=== PATIENT | female | born 1990 | race Caucasian/White ===

== ENCOUNTER → 2020-11-17 | Outpatient (CLI) | payer OTHER ==
[2020-11-17 15:41] LABS: BASO % 0.5 % (0.0-1.0); EOS # 0.2 10^3/uL (0.0-0.5); EOS % 1.9 % (0.0-3.0); HEMATOCRIT 43.8 % (36.0-47.0); HEMOGLOBIN 13.6 g/dl (12.0-15.5); LYMPH # 2.8 10^3/uL (1.5-5.0); LYMPH % 35.9 % (24.0-44.0); MEAN CORPUSCULAR HEMOGLOBIN 27.3 pg (27.0-33.0); MEAN CORPUSCULAR HGB CONC 31.1 g/dl (32.0-36.5); MONO # 0.3 10^3/uL (0.0-0.8); MONO % 4.1 % (2.0-8.0); NEUTROPHILS # 4.5 10^3/uL (1.5-8.5); NEUTROPHILS % 57.3 % (36.0-66.0); PLATELET COUNT, AUTOMATED 294 10^3/uL (150-450); RED BLOOD COUNT 4.98 10^6/uL (4.00-5.40); WHITE BLOOD COUNT 7.9 10^3/uL (4.0-10.0)
[2020-11-17 15:51] LABS: APPEARANCE, URINE CLOUDY (CLEAR); BACTERIA, URINE AUTO 2+ (NEGATIVE); BILIRUBIN, URINE AUTO NEGATIVE (NEGATIVE); BLOOD, URINE BLOOD NEGATIVE (NEGATIVE); COLOR, URINE YELLOW (YELLOW); GLUCOSE, URINE (UA) AUTO NEGATIVE (NEGATIVE); KETONE, URINE AUTO NEGATIVE (NEGATIVE); LEUKOCYTE ESTERASE, URINE AUTO 1+ (NEGATIVE); MUCUS, URINE MODERATE (NEGATIVE); NITRITE, URINE AUTO NEGATIVE (NEGATIVE); PROTEIN, URINE AUTO NEGATIVE (NEGATIVE); RBC, URINE AUTO 3 /HPF (0-3); SQUAMOUS EPITHELIAL CELL UR AU 7 /HPF (0-6); UROBILINOGEN, URINE AUTO 0.2 mg/dL (0.0-2.0); WBC, URINE AUTO 31 /HPF (0-3)
[2020-11-17 16:15] LABS: ALBUMIN 3.8 GM/DL (3.2-5.2); ALT/SGPT 29 U/L (12-78); BILIRUBIN,TOTAL 0.3 MG/DL (0.2-1.0); BLOOD UREA NITROGEN 15 MG/DL (7-18); CALCIUM LEVEL 9.2 MG/DL (8.5-10.1); CARBON DIOXIDE LEVEL 29 MEQ/L (21-32); CHLORIDE LEVEL 105 MEQ/L (98-107); CREATININE FOR GFR 0.79 MG/DL (0.55-1.30); GLOMERULAR FILTRATION RATE > 60.0 (>60); GLUCOSE, FASTING 71 MG/DL (70-100); POTASSIUM SERUM 4.3 MEQ/L (3.5-5.1); SODIUM LEVEL 138 MEQ/L (136-145)
[2020-11-17 16:33] LABS: HEPATITIS B SURFACE ANTIGEN NEGATIVE (NEGATIVE)
[2020-11-17 17:01] LABS: HEPATITIS B CORE ANTIBODY IGM NEGATIVE (NEGATIVE)
[2020-11-17 17:03] LABS: HEPATITIS A ANTIBODY IGM NEGATIVE (NEGATIVE)
[2020-11-17 17:29] LABS: HEPATITIS C VIRUS ABY INDEX > 11.0 INDEX (<0.8)
== END ==
LOC: M LAB 13:24
PROVIDERS: ATTEND Physician Assistant Medical
DX: Z02.2 Encounter for examination for admission to residential institution (principal)

== ENCOUNTER → 2021-01-13 | Outpatient (CLI) | payer OTHER ==
[2021-01-13 12:18] LABS: BASO % 0.5 % (0.0-1.0); EOS # 0.1 10^3/uL (0.0-0.5); EOS % 3.3 % (0.0-3.0); HEMATOCRIT 38.2 % (36.0-47.0); HEMOGLOBIN 12.2 g/dl (12.0-15.5); LYMPH # 2.1 10^3/uL (1.5-5.0); LYMPH % 53.4 % (24.0-44.0); MEAN CORPUSCULAR HGB CONC 31.9 g/dl (32.0-36.5); MEAN CORPUSCULAR VOLUME 87.8 fl (80.0-96.0); MONO # 0.2 10^3/uL (0.0-0.8); MONO % 5.1 % (2.0-8.0); NEUTROPHILS # 1.5 10^3/uL (1.5-8.5); NEUTROPHILS % 37.7 % (36.0-66.0); PLATELET COUNT, AUTOMATED 225 10^3/uL (150-450); RED BLOOD COUNT 4.35 10^6/uL (4.00-5.40)
[2021-01-13 12:41] LABS: ERYTHROCYTE SEDIMENTATION RATE 3 mm/hr (0-20)
[2021-01-13 12:46] LABS: BLOOD UREA NITROGEN 15 MG/DL (7-18); CALCIUM LEVEL 9.1 MG/DL (8.5-10.1); CARBON DIOXIDE LEVEL 30 MEQ/L (21-32); CHLORIDE LEVEL 109 MEQ/L (98-107); CREATININE FOR GFR 0.56 MG/DL (0.55-1.30); GLOMERULAR FILTRATION RATE > 60.0 (>60); GLUCOSE, FASTING 84 MG/DL (70-100); POTASSIUM SERUM 4.2 MEQ/L (3.5-5.1); SODIUM LEVEL 142 MEQ/L (136-145)
[2021-01-14 18:07] LABS: EBV VIRAL CAPSID AG IgG >600.0 U/mL (0.0-17.9); EBV VIRAL CAPSID AG IgM <36.0 U/mL (0.0-35.9)
== END ==
LOC: M LAB 10:49
PROVIDERS: ATTEND Physician Assistant
DX: M86.172 Other acute osteomyelitis, left ankle and foot (principal)

== ENCOUNTER 2021-02-10 12:26 | Emergency (ER) | payer OTHER ==
[~2021-02-10] VITALS: Ht 165.1 cm; Wt 66.4 kg
--- OUTSIDE RECORDS SUMMARY | 2021-02-10 12:34 | CCD | Continuity of Care Document ---
Author Author Misbah GARCIA PA-C Organization Unknown Address [address] [place] [address] Phone [phone] Problems Description No Information Available Social History Type Date Description Comments Sex Unknown Allergies and adverse reactions Description No Information Available Medications Description No Information Available Immunizations Description No Information Available Vital Signs Date Vital Result Comment 01/07/2021 1:19pm Height 65 inches 5'5" Weight 145.00 lb BMI (Body Mass Index) 24.1 kg/m2 Results Description No Information Available Procedures Date Code Description Status 01/07/2021 80319 X-Ray Foot Complete Completed Medical Devices Description No Information Available Encounters Description No Information Available Assessments Date Code Description Provider 01/07/2021 M86.471 Chronic osteomyeliti s with draining sinus, right ankle and foot Jane Garcia PA-C Plan of Treatment No Information Available Functional Status Description No Information Available Mental Status Description No Information Available Referrals Description No Information Available
--- OUTSIDE RECORDS SUMMARY | 2021-02-10 12:34 | CCD | Continuity of Care Document ---
Author Author Misbah HOWELL Organization Unknown Address [address] [place] [address] [address] [place] [address] Phone [phone] Care Team Providers Care Customer Service Dispatcher Name Role Phone JAN LEAL AUTM Problems Active Problems Provider Date Anxiety state NATASHA Ba Onset: 02/02/2021 Insomnia NATASHA Ba Onset: 02/02/2021 Nicotine dependence NATASHA Ba Onset: 02/02/2021 Drug dependence NATASHA Ba Onset: 02/02/2021 Social History Type Date Description Comments Sex Unknown ETOH Use history of alcohol abuse Recreational Drug Use history of use of hydromop jevon and cocaine Tobacco Use Start: Unknown Heavy tobacco smoker (more than 10 cigarettes/day) Allergies and adverse reactions Description No Known Drug Allergies Medications Active Medications SIG Qnty Indications Ordering Provide r Date Nicotine Polacrilex 4mg Lozenges take one lozenge by mouth up to 14 times daily as needed 72units Peterson Schneider [facility] 02/03/2021 Requip 1mg Tablets 1 tab by mouth every evening 1 hour prior to sleep 30tabs Peterson Schneider M[facility]D. [facility] 02/03/2021 Tizanidine HCL 6mg Capsules 1 tab by mouth three times a day as needed 90caps Peterson Schneider [facility] 02/03/2021 Nicotine Transdermal System Step 1 21mg/24HR Patches 24HR Apply One Patch To Skin topically Once Daily Jan Leal Prozac 40mg Capsules take one capsule by mouth daily Unknown History Medications Tizanidine HCL 4mg Tablets one tablet by mouth three times daily 90tabs Peterson Schneider [facility] 02/03/2021 - 02/03/2021 Vital Signs Date Vital Result Comment 02/03/2021 12:10pm Height 65 inches 5'5" Weight 146.25 lb BMI (Body Mass Index) 24.3 kg/m2 Body Temperature 98.2 F BP Systolic 107 mmHg BP Diastolic 68 mmHg Heart Rate 76 /min O2 % BldC Oximetry 95 % Respiratory Rate 16 /min Last Menstrual Period [id number] 12/28/2020 2:32pm Height 65 inches 5'5" Weight 145.12 lb BMI (Body Mass Index) 24.1 kg/m2 Body Temperature 97.7 F BP Systolic 108 mmHg BP Diastolic 68 mmHg Heart Rate 82 /min O2 % BldC Oximetry 98 % Respiratory Rate 16 /min Results Test Acquired Date Facility Test Result H/L Range Note CBC With Differential 11/17/[address] [id number] [phone] White Blood Count 7.9 10 Normal 4.0-10.0 Red Blood Count 4.98 10 Normal 4.00-5.40 Hemoglobin 13.6 g/dL Normal 12.0-15.5 Hematocrit 43.8 % Normal 36.0-47.0 Mean Corpuscular Volume 88.0 fl Normal 80.0-96.0 Mean Corpuscular Hemoglobin 27.3 pg Normal 27.0-33.0 Mean Corpuscular HGB Conc 31.1 g/dL Low 32.0-36.5 Red Cell Distribution Width 16.8 % High 11.5-14.5 Platelet Count, Automated 294 10 Normal 150-450 Neutrophils % 57.3 % Normal 36.0-66.0 Lymph % 35.9 % Normal 24.0-44.0 [place] % 4.1 % Normal 2.0-8.0 Eos % 1.9 % Normal 0.0-3.0 Baso % 0.5 % Normal 0.0-1.0 Immature Granulocyte % 0.3 % Normal 0-3.0 Nucleated Red Blood Cell % 0.0 % Normal 0-0 Neutrophils # 4.5 10 Normal 1.5-8.5 Lymph # 2.8 10 Normal 1.5-5.0 [place] # 0.3 10 Normal 0.0-0.8 Eos # 0.2 10 Normal 0.0-0.5 Baso # 0.0 10 Normal 0.0-0.2 Ua Routine 11/17/[address] [id number] [phone] Appearance, Urine CLOUDY High Clear Color, Urine YELLOW Normal Yellow PH,Urine 5.0 units Normal 5.0-9.0 Specific [place] Urine Auto 1.020 Normal 1.002-1.035 Protein, Urine Auto NEGATIVE mg/dL Normal Negative Glucose, Urine (Ua) Auto NEGATIVE mg/dL Normal Negative Ketone, Urine Auto NEGATIVE mg/dL Normal Negative Urobilinogen, Urine Auto 0.2 mg/dL Normal 0.0-2.0 Bilirubin, Urine Auto NEGATIVE Normal Negative Nitrite, Urine Auto NEGATIVE Normal Negative Leukocyte Esterase, Urine Auto 1+ High Negative Blood, Urine Blood NEGATIVE Normal Negative WBC, Urine Auto 31 /HPF High 0-3 RBC, Urine Auto 3 /HPF Normal 0-3 Bacteria, Urine Auto 2+ High Negative Squamous Epithelial Cell Ur AU 7 /HPF Normal 0-6 Mucus, Urine MODERATE Normal Negative Hyaline Cast, Urine Auto 0 /LPF Normal 0-1 Comprehensive Metabolic Profil 11/17/[address] [id number] [phone] Glucose, Fasting 71 mg/dL Normal 70-100 Blood Urea Nitrogen 15 mg/dL Normal 7-18 Creatinine For GFR 0.79 mg/dL Normal 0.55-1.30 Glomerular Filtration Rate > 60.0 Normal >60 1 Sodium Level 138 mEq/L Normal 136-145 Potassium Serum 4.3 mEq/L Normal 3.5-5.1 Chloride Level 105 mEq/L Normal 98-107 Carbon Dioxide Level 29 mEq/L Normal 21-32 Anion Gap 4 mEq/L Low 8-16 Calcium Level 9.2 mg/dL Normal 8.5-10.1 Ast/Sgot 25 U/L Normal 7-37 Alt/SGPT 29 U/L Normal 12-78 Alkaline Phosphatase 46 U/L Normal 45-117 Bilirubin,Total 0.3 mg/dL Normal 0.2-1.0 Total Protein 8.0 GM/DL Normal 6.4-8.2 Albumin 3.8 GM/DL Normal 3.2-5.2 Albumin/Globulin Ratio 0.9 Low 1.2-2.2 Hepatitis Profile 11/17/2020 [facility] [address] [place] [address] [phone] Hepatitis C Virus Rosy Index > 11.0 INDEX High <0 .8 2 Hepatitis B Surface Antigen NEGATIVE Normal Negative Hepatitis B Core Antibody Igm NEGATIVE Normal Negative Hepatitis A Antibody Igm NEGATIVE Normal Negative Laboratory test finding 11/17/2020 [facility] [address] [place] [address] [phone] HCV Rna Tosin Qualitative Negative Normal Negative 3 1 Units are mL/min/1.73 m2 Chronic Kidney Disease Staging per NKF: Stage I & II GFR >=60 Normal to Mildly Decreased Stage III GFR 30-59 Moderately Decreased Stage IV GFR 15-29 Severely Decreased Stage V GFR <15 Very Little GFR Left ESRD GFR <15 on DIRECTOR BUSINESS TRAVEL 2 This screening test for Hepa titis C Virus was above the 1.0 cutoff index value and will be sent to reference lab Laboratory [facility], [address] [place] [address]. [place], [place]. [address] for Hep C RNA TOSIN testing to confirm or exclude active Hepatitis C Virus infection. Screening test Positive samples with high index values (>11.0) usually (95%) confirm Positive, but <5 of every 100 samples with this result might be a false positive and Hep C RNA TOSIN testing will aid in patient management. 3 Negative: HCV RNA Not Detect ed Performed at: [address] [id number] Sales Management Intern: Maureen San MD, Phone: [phone] Procedures Date Code Description Status 02/03/2021 52869 Smoking Ceassation 3-10 Min Comp leted 02/03/2021 32545 Office/Outpatient Established Mo d MDM 30-39 Min Completed 12/28/2020 47803 Office/Outpatient Established SF MDM 10-19 Min Completed 12/07/2020 68615 Office/Outpatient Established Lo w MDM 20-29 Min Completed 11/16/2020 36959 Office/Outpatient New Low MDM 30 -44 Minutes Completed Encounters Type Date Location Provider Dx Diagnosis Office Visit 02/03/2021 12:00p [facility] NATASHA Espitia F17.293 Nicotine dependence, other tobacco produ ct, with withdrawal M54.31 Sciatica, right side M79.2 Neuralgia and neuritis, unsp ecified R45.1 Restlessness and agitation Office Visit 12/28/2020 10:00a [facility] NATASHA Irwin M54.2 Cervicalgia Office Visit 12/07/2020 3:15p [facility] NATASHA Irwin L03.032 Cellulitis of left toe K04.6 Periapical abscess with sinu s F32.9 Major depressive disorder, s salma episode, unspecified Office Visit 11/16/2020 10:15a [facility] NATASHA Irwin L03.032 Cellulitis of left toe 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, uncomplicated F32.9 Major depressive disorder, s salma episode, unspecified Assessments Date Code Description Provider 02/03/2021 F17.293 Nicotine dependence, other tobac co product, with withdrawal NATASHA Ba 02/03/2021 M54.31 Sciatica, right side ANTASHA Fernández 02/03/2021 M79.2 Neuralgia and neuritis, unspecif ied NATASHA Ba 02/03/2021 R45.1 Restlessness and agitation NATASHA Self 12/28/2020 M54.2 Cervicalgia Jan Mell Josiah dougherty, NATASHA 12/07/2020 L03.032 Cellulitis of left toe Jan G Elvis, NATASHA 12/07/2020 K04.6 Periapical abscess with sinus Fr garfield Leal, NATASHA 12/07/2020 F32.9 Major depressive disorder, singl e episode, unspecified Jan Leal, NATASHA 11/16/2020 L03.032 Cellulitis of left toe Jan G NATASHA Leal 11/16/2020 F19.20 Other psychoactive substance dep endence, uncomplicated Jan Leal, NATASHA 11/16/2020 F32.9 Major depressive disorder, singl e episode, unspecified NATASHA Morrison Plan of Treatment 02/03/2021 - NATASHA Ba* F17.293 Nicotine dependence, other tobacco product, with withdrawal* Comments:* At this time would like to try lozenge for smoking cessationS/E include Nicotine nicotine toxicity such as severe headache, dizziness, mental confusion, disturbed hearing and vision, abdominal pain; rapid, weak and irregular pulse; salivation, nausea, vomiting, diarrhea, cold sweat, weaknessInstructed to not use more than one at a time. Goal of treatment is to eventually D/C lozenge. At this time will increase MDD to 14 QD in conjunction with nicotine patch As patient uses the majority of her lozenges prior to noon each day. We reviewed at great length that I expect her to decrease Lozenges by the next 6 weeks. Understands and will try to taper. Cope time line is 1 Q1-2H for weeks 1-6; 1 Q2-4H for week 7-9; and 1 Q4-8H week 10-12 * M54.31 Sciatica, right side* Comments:* sciatica stretches reviewed. I showed her a video of specific stretches I want her to do. This also works as a reference if she forgets when back at the house. She understands, and takes not of the specific URL. * M79.2 Neuralgia and neuritis, unspecified* Comments:* Shooting pain with minimal improvement from tizanidine. Will increase dose to 6mg TID PRN. * R45.1 Restlessness and agitation* Comments:* Will start Requip QHS PRN. * All * New Medication:* Nicotine Polacrilex 4 mg - take one lozenge by mouth up to 14 times daily as needed * Requip 1 mg - 1 tab by mouth every evening 1 hour prior to sleep * Tizanidine HCL 6 mg - 1 tab by mouth three times a day as needed * Tizanidine HCL 4 mg - one tablet by mouth three times daily Referrals Refer to Reason for Referral Status Appt Date [facility] PATIENT WITH C/O SWELLI NG AND PAIN IN HER LEFT SECOND TOE. PLEASE EVAL AND TREAT. Closed [address] [address] [phone]
--- OUTSIDE RECORDS SUMMARY | 2021-02-10 12:34 | CCD ---
Continuity of Care Document (CCD) Created on: 01/07/2021 Misbah Ponce External Reference #: [id number] : [id number] Sex: Female Author Author Misbah GARCIA PA-C Organization Unknown Address [address] [place] [address] Phone [phone] Problems Description No Information Available Social History Type Date Description Comments Sex Unknown Allergies and adverse reactions Description No Information Available Medications Description No Information Available Immunizations Description No Information Available Vital Signs Date Vital Result Comment 01/07/2021 1:19pm Height 65 inches 5'5" Weight 145.00 lb BMI (Body Mass Index) 24.1 kg/m2 Results Description No Information Available Procedures Date Code Description Status 01/07/2021 44627 X-Ray Foot Complete Completed Medical Devices Description [...]
--- OUTSIDE RECORDS SUMMARY | 2021-02-10 12:34 | CCD ---
Continuity of Care Document (CCD) Created on: 01/12/2021 [place] Misbah External Reference #: [id number] : 1990 Sex: Male Author Author Misbah LEAL Organization Unknown Address [address] [facility] [address] [place] [address] Phone [phone] Care Team Providers Care Medical Assistant Supervisor Name Role Phone JAN LEAL AUTM [phone] Social History Type Date Description Comments Sex Unknown Results Test Acquired Date Facility Test Result H/L Range Note CBC With Differential 11/17/2020 [facility] [address] [place], [place] [id number] [phone] White Blood Count 7.9 10 Normal 4.0-10.0 [...] 36.0-66.0 Lymph % 35.9 % Normal 24.0-44.0 [place] % 4.1 % Normal 2.0-8.0 Eos % 1.9 % Normal 0.0-3.0 Baso % 0.5 % Normal 0.0-1.0 Immature Granulocyte % 0.3 % Normal 0-3.0 Nucleated Red Blood Cell % 0.0 % Normal 0-0 Neutrophils # 4.5 10 Normal 1.5-8.5 Lymph # 2.8 10 Normal 1.5-5.0 [place] # 0.3 10 Normal 0.0-0.8 Eos # 0.2 10 Normal 0.0-0.5 Baso # 0.0 10 Normal 0.0-0.2 Ua Routine 11/17/[address] [id number] [phone] Appearance, Urine CLOUDY High Clear Color, Urine YELLOW Normal Yellow PH,Urine 5.0 units Normal 5.0-9.0 Specific [place] Urine Auto 1.020 Normal 1.002-1.035 Protein, Urine [...] /LPF Normal 0-1 Comprehensive Metabolic Profil 11/17/[address] [id number] [phone] Glucose, Fasting 71 mg/dL Normal 70-100 Blood [...] Ratio 0.9 Low 1.2-2.2 Hepatitis Profile 11/17/[address] [address] [phone] Hepatitis C Virus Rosy Index > 11.0 INDEX High <0 .8 2 Hepatitis B Surface Antigen NEGATIVE Normal Negative Hepatitis B Core Antibody Igm NEGATIVE Normal Negative Hepatitis A Antibody Igm NEGATIVE Normal Negative Laboratory test finding 11/17/2020 [facility] [address] [place] [address] [phone] HCV Rna Tosin Qualitative Negative Normal Negative 3 1 Units are mL/min/1.73 m2 Chronic Kidney Disease Staging per NKF: Stage I & II GFR >=60 Normal to Mildly Decreased Stage III GFR 30-59 Moderately Decreased Stage IV GFR 15-29 Severely Decreased Stage V GFR <15 Very Little GFR Left ESRD GFR <15 on RECESSING MACHINE OPERATOR 2 This screening test for Hepa titis C Virus was above the 1.0 cutoff index value and will be sent to reference lab Laboratory [facility], [address] [place] [address]. [place], [place]. [address] for Hep C RNA TOSIN testing to confirm or exclude active Hepatitis C Virus infection. Screening test Positive samples with high index values (>11.0) usually (95%) confirm Positive, but <5 of every 100 samples with this result might be a false positive and Hep C RNA TOSIN testing will aid in patient management. 3 Negative: HCV RNA Not Detect ed Performed at: [address] [id number] 61 Estate Manager: Maureen San MD, Phone: [phone] Procedures Date Code Description Status 12/28/2020 29295 Office/Outpatient Established SF MDM 10-19 Min Completed 12/07/2020 74551 Office/Outpatient Established Lo w MDM 20-29 Min Completed 11/16/2020 56589 Office/Outpatient New Low MDM 30 -44 Minutes Completed Encounters Type Date Location Provider Dx Diagnosis Office Visit 12/28/2020 10:00a [facility] NATASHA Irwin M54.2 Cervicalgia Office Visit 12/07/2020 3:15p [facility] NATASHA Irwin L03.032 Cellulitis of left toe K04.6 Periapical abscess with sinu s F32.9 Major depressive disorder, s salma episode, unspecified Office Visit 11/16/2020 10:15a [facility] NTAASHA Irwin L03.032 Cellulitis of left toe 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, uncomplicated F32.9 Major depressive disorder, s salma episode, unspecified Assessments Date Code Description Provider 12/28/2020 M54.2 Cervicalgia NATASHA Osborn 12/07/2020 L03.032 Cellulitis of left toe Jna Leal, NATASHA 12/07/2020 K04.6 Periapical abscess with sinus Fr NATASHA Fournier 12/07/2020 F32.9 Major depressive disorder, singl e episode, unspecified Jan Leal, NATASHA 11/16/2020 L03.032 Cellulitis of left toe NATASHA Morrison 11/16/2020 F19.20 Other psychoactive substance dep endence, uncomplicated Jan Leal, NATASHA 11/16/2020 F32.9 Major depressive disorder, singl e episode, unspecified NATASHA Morrison Referrals Refer to Reason for Referral Status Appt Date [facility] PATIENT WITH C/O SWELLI NG AND PAIN IN HER LEFT SECOND TOE. PLEASE EVAL AND TREAT. Sent [address]51 [place] [address] [phone]
--- OUTSIDE RECORDS SUMMARY | 2021-02-10 12:34 | CCD | Continuity of Care Document ---
Author Author Misbah LEAL Organization Unknown Address [address] [facility] [address] [place] [address] Phone [phone] Care Team Providers Care Coal Wheeler Name Role Phone JAN LEAL AUTM [phone] Social History Type Date Description Comments Sex Unknown Results Test Acquired Date Facility Test Result H/L Range Note CBC With Differential 11/17/2020 [facility] [address] [place] [address] [id number] [phone] White Blood Count 7.9 10 Normal 4.0-10.0 [...] 36.0-66.0 Lymph % 35.9 % Normal 24.0-44.0 [place] % 4.1 % Normal 2.0-8.0 Eos % 1.9 % Normal 0.0-3.0 Baso % 0.5 % Normal 0.0-1.0 Immature Granulocyte % 0.3 % Normal 0-3.0 Nucleated Red Blood Cell % 0.0 % Normal 0-0 Neutrophils # 4.5 10 Normal 1.5-8.5 Lymph # 2.8 10 Normal 1.5-5.0 [place] # 0.3 10 Normal 0.0-0.8 Eos # 0.2 10 Normal 0.0-0.5 Baso # 0.0 10 Normal 0.0-0.2 Ua Routine 11/17/[address] [id number] [phone] Appearance, Urine CLOUDY High Clear Color, Urine YELLOW Normal Yellow PH,Urine 5.0 units Normal 5.0-9.0 Specific [place] Urine Auto 1.020 Normal 1.002-1.035 Protein, Urine [...] /LPF Normal 0-1 Comprehensive Metabolic Profil 11/17/[address] [id number] [phone] Glucose, Fasting 71 mg/dL Normal 70-100 Blood [...] Ratio 0.9 Low 1.2-2.2 Hepatitis Profile 11/17/[address] [address] [phone] Hepatitis C Virus Rosy Index > 11.0 INDEX High <0 .8 2 Hepatitis B Surface Antigen NEGATIVE Normal Negative Hepatitis B Core Antibody Igm NEGATIVE Normal Negative Hepatitis A Antibody Igm NEGATIVE Normal Negative Laboratory test finding 11/17/2020 [facility] [address] [place] [address] [phone] HCV Rna Tosin Qualitative Negative Normal Negative 3 1 Units are mL/min/1.73 m2 Chronic Kidney Disease Staging per NKF: Stage I & II GFR >=60 Normal to Mildly Decreased Stage III GFR 30-59 Moderately Decreased Stage IV GFR 15-29 Severely Decreased Stage V GFR <15 Very Little GFR Left ESRD GFR <15 on PROMOTIONS OFFICER 2 This screening test for Hepa titis C Virus was above the 1.0 cutoff index value and will be sent to reference lab Laboratory [facility], [address] [place] [address]. [place], [place]. [address] for Hep C RNA TOSIN testing to confirm or exclude active Hepatitis C Virus infection. Screening test Positive samples with high index values (>11.0) usually (95%) confirm Positive, but <5 of every 100 samples with this result might be a false positive and Hep C RNA TOSIN testing will aid in patient management. 3 Negative: HCV RNA Not Detect ed Performed at: [address] [id number] 61 Plater Helper: Maureen San MD, Phone: [phone] Procedures Date Code Description Status 12/28/2020 91879 Office/Outpatient Established SF MDM 10-19 Min Completed 12/07/2020 61203 Office/Outpatient Established Lo w MDM 20-29 Min Completed 11/16/2020 01807 Office/Outpatient New Low MDM 30 -44 Minutes Completed Encounters Type Date Location Provider Dx Diagnosis Office Visit 12/28/2020 10:00a [facility] NATASHA Irwin M54.2 Cervicalgia Office Visit 12/07/2020 3:15p [facility] NATASHA Irwin L03.032 Cellulitis of left toe K04.6 Periapical abscess with sinu s F32.9 Major depressive disorder, s salma episode, unspecified Office Visit 11/16/2020 10:15a 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, uncomplicated F32.9 Major depressive disorder, s salma episode, unspecified Assessments Date Code Description Provider 12/28/2020 M54.2 Cervicalgia NATASHA Osborn 12/07/2020 L03.032 Cellulitis of left toe Jan Leal, NATASHA 12/07/2020 K04.6 Periapical abscess with sinus Fr NATASHA Fournier 12/07/2020 F32.9 Major depressive disorder, singl e episode, unspecified Jan Leal, NATASHA 11/16/2020 L03.032 Cellulitis of left toe NATASHA Morrison 11/16/2020 F19.20 Other psychoactive substance dep endence, uncomplicated Jan Leal, NATASHA 11/16/2020 F32.9 Major depressive disorder, singl e episode, unspecified NATASHA Morrison Referrals Refer to Reason for Referral Status Appt Date [facility] PATIENT WITH C/O SWELLI NG AND PAIN IN HER LEFT SECOND TOE. PLEASE EVAL AND TREAT. Sent 1751 [place] [address] [phone]
--- OUTSIDE RECORDS SUMMARY | 2021-02-10 12:34 | CCD | Continuity of Care Document ---
Author Author Misbah GARCIA PA-C Organization Unknown Address [address] [place] [address] Phone [phone] Problems Description No Information Available Social History Type Date Description Comments Sex Unknown Allergies and adverse reactions Description No Information Available Medications Description No Information Available Immunizations Description No Information Available Vital Signs Date Vital Result Comment 01/07/2021 1:19pm Height 65 inches 5'5" Weight 145.00 lb BMI (Body Mass Index) 24.1 kg/m2 Results Description No Information Available Procedures Date Code Description Status 01/07/2021 24647 Office/Outpatient New Moderate M DM 45-59 Minutes Completed 01/07/2021 75671 X-Ray Foot Complete Completed Medical Devices Description No Information Available Encounters Type Date Location Provider Dx Diagnosis Office Visit 01/07/2021 1:00p [place] Jane Garcia PA-C M86.4 72 Chronic osteomyelitis w draining sinus, left ankle and foot Assessments Date Code Description Provider 01/07/2021 M86.472 Chronic osteomyeliti s with draining sinus, left ankle and foot Jane Garcia PA-C Plan of Treatment No Information Available Functional Status Description No Information Available Mental Status Description No Information Available Referrals Refer to Reason for Referral Status Appt Date Jane Garcia PA-C REFERRAL NO AUTH REQUIRED FO R REFERRAL TO DR. OWEN TO E [employer] MERCHANDISING COORDINATOR. DG Created [address] [place] [address] [phone]
--- OUTSIDE RECORDS SUMMARY | 2021-02-10 12:34 | CCD | Continuity of Care Document ---
Author Author Misbah LEAL Organization Unknown Address [address] [facility] [address] [place] [address] Phone [phone] Care Team Providers Care Stencil Inspector Name Role Phone JAN LEAL AUTM [phone] Social History Type Date Description Comments Sex Unknown Results Test Acquired Date Facility Test Result H/L Range Note CBC With Differential 11/17/2020 [facility] [address] [place], [place] [id number] [phone] White Blood Count 7.9 10 Normal 4.0-10.0 [...] 36.0-66.0 Lymph % 35.9 % Normal 24.0-44.0 [place] % 4.1 % Normal 2.0-8.0 Eos % 1.9 % Normal 0.0-3.0 Baso % 0.5 % Normal 0.0-1.0 Immature Granulocyte % 0.3 % Normal 0-3.0 Nucleated Red Blood Cell % 0.0 % Normal 0-0 Neutrophils # 4.5 10 Normal 1.5-8.5 Lymph # 2.8 10 Normal 1.5-5.0 [place] # 0.3 10 Normal 0.0-0.8 Eos # 0.2 10 Normal 0.0-0.5 Baso # 0.0 10 Normal 0.0-0.2 Ua Routine 11/17/[address] [id number] [phone] Appearance, Urine CLOUDY High Clear Color, Urine YELLOW Normal Yellow PH,Urine 5.0 units Normal 5.0-9.0 Specific [place] Urine Auto 1.020 Normal 1.002-1.035 Protein, Urine [...] /LPF Normal 0-1 Comprehensive Metabolic Profil 11/17/[address] [id number] [phone] Glucose, Fasting 71 mg/dL Normal 70-100 Blood [...] Ratio 0.9 Low 1.2-2.2 Hepatitis Profile 11/17/[address] [address] [phone] Hepatitis C Virus Rosy Index > 11.0 INDEX High <0 .8 2 Hepatitis B Surface Antigen NEGATIVE Normal Negative Hepatitis B Core Antibody Igm NEGATIVE Normal Negative Hepatitis A Antibody Igm NEGATIVE Normal Negative Laboratory test finding 11/17/2020 [address] [place] [address] [phone] HCV Rna Tosin Qualitative Negative Normal Negative 3 1 Units are mL/min/1.73 m2 Chronic Kidney Disease Staging per NKF: Stage I & II GFR >=60 Normal to Mildly Decreased Stage III GFR 30-59 Moderately Decreased Stage IV GFR 15-29 Severely Decreased Stage V GFR <15 Very Little GFR Left ESRD GFR <15 on LIME SPREADER 2 This screening test for Hepa titis C Virus was above the 1.0 cutoff index value and will be sent to reference lab Laboratory [facility], [address] [place] [address]. Marielena, Colt.Matt. [address] for Hep C RNA TOSIN testing to confirm or exclude active Hepatitis C Virus infection. Screening test Positive samples with high index values (>11.0) usually (95%) confirm Positive, but <5 of every 100 samples with this result might be a false positive and Hep C RNA TOSIN testing will aid in patient management. 3 Negative: HCV RNA Not Detect ed Performed at: [address] [id number] [place] Guide: Maureen San MD, Phone: [phone] Procedures Date Code Description Status 12/07/2020 43261 Office/Outpatient Established Lo w MDM 20-29 Min Completed 11/16/2020 92204 Office/Outpatient New Low MDM 30 -44 Minutes Completed Encounters Type Date Location Provider Dx Diagnosis Office Visit 12/07/2020 3:15p [facility] NATASHA Irwin L03.032 Cellulitis of left toe K04.6 Periapical abscess with sinu s F32.9 Major depressive disorder, s salma episode, unspecified Office Visit 11/16/2020 10:15a [facility] NATASHA Irwin L03.032 Cellulitis of left toe 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, uncomplicated F32.9 Major depressive disorder, s salma episode, unspecified Assessments Date Code Description Provider 12/07/2020 L03.032 Cellulitis of left toe Jan G Elvis, NATASHA 12/07/2020 K04.6 Periapical abscess with sinus Fr garfield Leal, NATASHA 12/07/2020 F32.9 Major depressive disorder, singl e episode, unspecified NATASHA Morrison 11/16/2020 L03.032 Cellulitis of left toe Jan G Elvis, NATASHA 11/16/2020 F19.20 Other psychoactive substance dep endence, uncomplicated NATASHA Morrison 11/16/2020 F32.9 Major depressive disorder, singl e episode, unspecified NATASHA Morrison Referrals Refer to Reason for Referral Status Appt Date [facility] PATIENT WITH C/O SWELLI NG AND PAIN IN HER LEFT SECOND TOE. PLEASE EVAL AND TREAT. Sent [address] [address] [phone]
--- OUTSIDE RECORDS SUMMARY | 2021-02-10 12:34 | CCD ---
Continuity of Care Document (CCD) Created on: 11/23/2020 [facility] Misbah External Reference #: [id number] : 1990 Sex: Male Author Author Misbah LEAL Organization Unknown Address [address] [facility] [address] [place] [address] Phone [phone] Care Team Providers Care Art Objects Supervisor Name Role Phone JAN LEAL AUTM [phone] Social History Type Date Description Comments Sex Unknown Results Test Acquired Date Facility Test Result H/L Range Note CBC With Differential 11/17/2020 [facility] [address] [place], [place] [id number] [phone] White Blood Count 7.9 10 Normal 4.0-10.0 [...] 36.0-66.0 Lymph % 35.9 % Normal 24.0-44.0 [place] % 4.1 % Normal 2.0-8.0 Eos % 1.9 % Normal 0.0-3.0 Baso % 0.5 % Normal 0.0-1.0 Immature Granulocyte % 0.3 % Normal 0-3.0 Nucleated Red Blood Cell % 0.0 % Normal 0-0 Neutrophils # 4.5 10 Normal 1.5-8.5 Lymph # 2.8 10 Normal 1.5-5.0 [place] # 0.3 10 Normal 0.0-0.8 Eos # 0.2 10 Normal 0.0-0.5 Baso # 0.0 10 Normal 0.0-0.2 Ua Routine 11/17/[address] [id number] [phone] Appearance, Urine CLOUDY High Clear Color, Urine YELLOW Normal Yellow PH,Urine 5.0 units Normal 5.0-9.0 Specific [place] Urine Auto 1.020 Normal 1.002-1.035 Protein, Urine [...] /LPF Normal 0-1 Comprehensive Metabolic Profil 11/17/[address] [id number] [phone] Glucose, Fasting 71 mg/dL Normal 70-100 Blood [...] Ratio 0.9 Low 1.2-2.2 Hepatitis Profile 11/17/[address] [address] [phone] Hepatitis C Virus Rosy Index > 11.0 INDEX High <0 .8 2 Hepatitis B Surface Antigen NEGATIVE Normal Negative Hepatitis B Core Antibody Igm NEGATIVE Normal Negative Hepatitis A Antibody Igm NEGATIVE Normal Negative Laboratory test finding 11/17/2020 [address] [place] [address] [phone] HCV Rna Tosin Qualitative Negative Normal Negative 3 1 Units are mL/min/1.73 m2 Chronic Kidney Disease Staging per NKF: Stage I & II GFR >=60 Normal to Mildly Decreased Stage III GFR 30-59 Moderately Decreased Stage IV GFR 15-29 Severely Decreased Stage V GFR <15 Very Little GFR Left ESRD GFR <15 on CYTOTECHNOLOGIST/CYTOLOGY SUPERVISOR 2 This screening test for Hepa titis C Virus was above the 1.0 cutoff index value and will be sent to reference lab Laboratory [facility], [address] [place] [address]. Marielena, [place]t.Matt. [address] for Hep C RNA TOSIN testing to confirm or exclude active Hepatitis C Virus infection. Screening test Positive samples with high index values (>11.0) usually (95%) confirm Positive, but <5 of every 100 samples with this result might be a false positive and Hep C RNA TOSIN testing will aid in patient management. 3 Negative: HCV RNA Not Detect ed Performed at: [address] [id number] Correspondence Review Clerk: Maureen San MD, Phone: [phone] Procedures Date Code Description Status 11/16/2020 399[address] Office/Outpatient [facility] 30 -44 Minutes Completed Encounters Type Date Location Provider Dx Diagnosis Office Visit 11/16/2020 10:15a [facility] NATASHA Irwin L03.032 Cellulitis of left toe 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, uncomplicated F32.9 Major depressive disorder, s salma episode, unspecified Assessments Date Code Description Provider 11/16/2020 L03.032 Cellulitis of left toe NATASHA Morrison 11/16/2020 F19.20 Other psychoactive substance dep endence, uncomplicated NATASHA Morrison 11/16/2020 F32.9 Major depressive disorder, singl e episode, unspecified Jan Leal PA
--- OUTSIDE RECORDS SUMMARY | 2021-02-10 12:35 | CCD ---
Author Author [facility] Organization [facility] Address Unknown Phone Unavailable Care Team Providers Care Office Machine Repair Shop Supervisor Name Role Phone VANWAGNER, YANI DO Unavailable Unavailable VANWAGNER, YANI DO Unavailable Unavailable VANWAGNER, YANI DO Unavailable Unavailable VANWAGNER, YANI DO Unavailable Unavailable VANWAGNER, YANI DO Unavailable Unavailable VANWAGNER, YANI DO Unavailable Unavailable VANWAGNER, YANI DO Unavailable Unavailable VANWAGNER, YANI DO Unavailable Unavailable VANWAGNER, YANI DO Unavailable Unavailable VANWAGNER, YANI DO Unavailable Unavailable VANWAGNER, YANI DO Unavailable Unavailable VANWAGNER, YANI DO Unavailable Unavailable VANWAGNER, YANI DO Unavailable Unavailable VANWAGNER, YANI DO Unavailable Unavailable VANWAGNER, YANI DO Unavailable Unavailable VANWAGNER, YANI DO Unavailable Unavailable Herson Pang M.D. Unavailable Unavailable Herson Pang M.D. Unavailable Unavailable Herson Pagn M.D. Unavailable Unavailable CAROL YOST MD Unavailable Unavailable CAROL YOST MD Unavailable Unavailable ACROL YOST MD Unavailable Unavailable CAROL YOST MD Unavailable Unavailable CAROL YOST MD Unavailable Unavailable CAROL YOST MD Unavailable Unavailable CAROL YOST MD Unavailable Unavailable Tuyet J Raymonda, MARKETING DATABASE CONSULTANT Unavailable Unavailable Idania Lawson, F MARKETING DATABASE CONSULTANT MARKETING DATABASE CONSULTANT Unavailable Unavailable Idania Lawson, F MARKETING DATABASE CONSULTANT MARKETING DATABASE CONSULTANT Unavailable Unavailable RACHELLE DUNLAP MD Unavailable Unavailable RACHELLE DUNLAP MD Unavailable Unavailable RACHELLE DUNLAP MD Unavailable Unavailable RACHELLE DUNLAP MD Unavailable Unavailable RACHELLE DUNLAP MD Unavailable Unavailable RACHELLE DUNLAP MD Unavailable Unavailable RACHELLE DUNLAP MD Unavailable Unavailable RACHELLE DUNLAP MD Unavailable Unavailable RACHELLE DUNLAP MD Unavailable Unavailable RACHELLE DUNLAP MD Unavailable Unavailable RACHELLE DUNLAP MD Unavailable Unavailable RACHELLE DUNLAP MD Unavailable Unavailable RACHELLE DUNLAP MD Unavailable Unavailable RACHELLE DUNLAP MD Unavailable Unavailable RACHELLE DUNLAP MD Unavailable Unavailable RACHELLE DUNLAP MD Unavailable Unavailable RACHELLE DUNLAP MD Unavailable Unavailable RACHELLE DUNLAP MD Unavailable Unavailable RACHELLE DUNLAP MD Unavailable Unavailable RACHELLE DUNLAP MD Unavailable Unavailable Vera Ledezma MD Unavailable Unavailable Vera Ledezma MD Unavailable Unavailable Vera Ledezma MD Unavailable Unavailable Vera Ledezma MD Unavailable Unavailable Vera Ledezma MD Unavailable Unavailable Vera Ledezma MD Unavailable Unavailable Vera Ledezma MD Unavailable Unavailable Vera Ledezma MD Unavailable Unavailable Vera Ledezma MD Unavailable Unavailable Vera Ledezma MD Unavailable Unavailable Scott Rosen MD Unavailable Unavailable Scott Rosen MD Unavailable Unavailable Scott Rosen MD Unavailable Unavailable Scott Rosen MD Unavailable Unavailable Scott Rosen MD Unavailable Unavailable Scott Rosen MD Unavailable Unavailable Scott Rosen MD Unavailable Unavailable Scott Rosen MD Unavailable Unavailable Scott Rosen MD Unavailable Unavailable Scott Rosen MD Unavailable Unavailable Scott Rosen MD Unavailable Unavailable Scott Rosen MD Unavailable Unavailable Scott Rosen MD Unavailable Unavailable Scott Rosen MD Unavailable Unavailable Scott Rosen MD Unavailable Unavailable Scott Rosen MD Unavailable Unavailable Emerald Fountain LCSW Unavailable Unavailable Mustizer, E Shandra PA Unavailable Unavailable Mustizer, E Shandra PA Unavailable Unavailable Mustizer, E Shandra PA Unavailable Unavailable Mustizer, E Shandra PA Unavailable Unavailable Mustizer, E Shandra PA Unavailable Unavailable Mustizer, E Shandra PA Unavailable Unavailable Mustizer, E Shandra PA Unavailable Unavailable Herson Montes M.D. Unavailable Herson Montes M.D. Unavailable Herson Montes M.D. Unavailable Herson Montes M.D. Unavailable Herson Montes M.D. Unavailable [phone] Herson Montes M.D. Unavailable Herson Montes M.D. Unavailable DEFAULT, PROVIDER Unavailable Unavailable RACHELLE DUNLAP MD Unavailable Unavailable RACHELLE DUNLAP MD Unavailable Unavailable RACHELLE DUNLAP MD Unavailable Unavailable RACHELLE DUNLAP MD Unavailable Unavailable RACHELLE DUNLAP MD Unavailable Unavailable RACHELLE DUNLAP MD Unavailable Unavailable RACHELLE DUNLAP MD Unavailable Unavailable RACHELLE DUNLAP MD Unavailable Unavailable RACHELLE DUNLAP MD Unavailable Unavailable RACHELLE DUNLAP MD Unavailable Unavailable RACHELLE DUNLAP MD Unavailable Unavailable RACHELLE DUNLAP MD Unavailable Unavailable RACHELLE DUNLAP MD Unavailable Unavailable RACHELLE DUNLAP MD Unavailable Unavailable RACHELLE DUNLAP MD Unavailable Unavailable RACHELLE DUNLAP MD Unavailable Unavailable RACHELLE DUNLAP MD Unavailable Unavailable RACHELLE DUNLAP MD Unavailable Unavailable RACHELLE DUNLAP MD Unavailable Unavailable RACHELLE DUNLAP MD Unavailable Unavailable Rodgers, Jane PA Unavailable Unavailable Rodgers, Jane PA Unavailable Unavailable Rodgers, Jane PA Unavailable Unavailable Rodgers, Jane PA Unavailable Unavailable Rodgers, Jane PA Unavailable Unavailable Rodgers, Jane PA Unavailable Unavailable Rodgers, Jane PA Unavailable Unavailable Rodgers, Jane PA Unavailable Unavailable Hilario Yost MD Unavailable Unavailable TONTARSKI, G CATY PA Unavailable Unavailable TONTARSKI, G CATY PA Unavailable Unavailable TONTARSKI, G CATY PA Unavailable Unavailable TONTARSKI, G CATY PA Unavailable Unavailable TONTARSKI, G CATY PA Unavailable Unavailable TONTARSKI, G CATY PA Unavailable Unavailable TONTARSKI, G CATY PA Unavailable Unavailable TONTARSKI, G CATY PA Unavailable Unavailable TONTARSKI, G CATY PA Unavailable Unavailable TONTARSKI, G CATY PA Unavailable Unavailable TONTARSKI, G CATY PA Unavailable Unavailable TONTARSKI, G CATY PA Unavailable Unavailable TONTARSLATOSHA, G CATY PA Unavailable Unavailable TONTARSLATOSHA, G CATY PA Unavailable Unavailable TONTARSLATOSHA, G CATY PA Unavailable Unavailable TONTARSKI, G CATY PA Unavailable Unavailable TONTARSLATOSHA, G CATY PA Unavailable Unavailable TONTARSKI, G CATY PA Unavailable Unavailable TONTARSLATOSHA, G CATY PA Unavailable Unavailable TONTARSLATOSHA, G CATY PA Unavailable Unavailable TONTARSKI, G CATY PA Unavailable Unavailable TONTARSLATOSHA, G CATY PA Unavailable Unavailable TONTARSLATOSHA, G CATY PA Unavailable Unavailable TONTARSLATOSHA, G CATY PA Unavailable Unavailable TONTARSLATOSHA, G CATY PA Unavailable Unavailable TONTARSLATOSHA, G CATY PA Unavailable Unavailable TONTARSLATOSHA, G CATY PA Unavailable Unavailable TONTARSLATOSHA, G CATY PA Unavailable Unavailable TONTARSLATOSHA, G CATY PA Unavailable Unavailable TONTARSLATOSHA, G CATY PA Unavailable Unavailable TONTARSLATOSHA, G CATY PA Unavailable Unavailable TONTARSLATOSHA, G CATY PA Unavailable Unavailable TONTARSLATOSHA, G CATY PA Unavailable Unavailable TONTARSLATOSHA, G CATY PA Unavailable Unavailable TONTARSLATOSHA, G CATY PA Unavailable Unavailable TONTARSLATOSHA, G CATY PA Unavailable Unavailable TONTARSLATOSHA, G CATY PA Unavailable Unavailable TONTARSLATOSHA, G CATY PA Unavailable Unavailable TONTARSLATOSHA, G CATY PA Unavailable Unavailable TONTARSLATOSHA, G CATY PA Unavailable Unavailable TONTARSLATOSHA, G CATY PA Unavailable Unavailable TONTARSLATOSHA, G CATY PA Unavailable Unavailable TONTARSLATOSHA, G CATY PA Unavailable Unavailable TONTARSLATOSHA, G CATY PA Unavailable Unavailable TONTARSLTAOSHA, G CATY PA Unavailable Unavailable TONTARSLATOSHA, G CATY PA Unavailable Unavailable TONTARSLATOSHA, G CATY PA Unavailable Unavailable TONTARSKI, G CATY PA Unavailable Unavailable BROUGHAL, C FABI PA Unavailable Unavailable BROUGHAL, C FABI PA Unavailable Unavailable BROUGHAL, C FABI PA Unavailable Unavailable BROUGHAL, C FABI PA Unavailable Unavailable BROUGHAL, C FABI PA Unavailable Unavailable BROUGHAL, C FABI PA Unavailable Unavailable BROWN, DALIA IDANIA TORCH STRAIGHTENER AND HEATER Unavailable Unavailable BROWN, DALIA IDANIA TORCH STRAIGHTENER AND HEATER Unavailable Unavailable BROWN, DALIA IDANIA TORCH STRAIGHTENER AND HEATER Unavailable Unavailable BROWN, DALIA IDANIA TORCH STRAIGHTENER AND HEATER Unavailable Unavailable BROWN, DALIA IDANIA TORCH STRAIGHTENER AND HEATER Unavailable Unavailable BROWN, DALIA IDANIA TORCH STRAIGHTENER AND HEATER Unavailable Unavailable BROWN, DALIA IDANIA TORCH STRAIGHTENER AND HEATER Unavailable Unavailable BROWN, DALIA IDANIA TORCH STRAIGHTENER AND HEATER Unavailable Unavailable BROWN, DALIA IDANIA TORCH STRAIGHTENER AND HEATER Unavailable Unavailable BROWN, DALIA IDANIA TORCH STRAIGHTENER AND HEATER Unavailable Unavailable BROWN, DALIA IDANIA TORCH STRAIGHTENER AND HEATER Unavailable Unavailable BROWN, DALIA IDANIA TORCH STRAIGHTENER AND HEATER Unavailable Unavailable BROWN, DALIA IDANIA TORCH STRAIGHTENER AND HEATER Unavailable Unavailable BROWN, DALIA IDANIA TORCH STRAIGHTENER AND HEATER Unavailable Unavailable BROWN, DALIA IDANIA TORCH STRAIGHTENER AND HEATER Unavailable Unavailable BROWN, DALIA IDANIA TORCH STRAIGHTENER AND HEATER Unavailable Unavailable BROWN, DALIA IDANIA TORCH STRAIGHTENER AND HEATER Unavailable Unavailable BROWN, DALIA IDANIA TORCH STRAIGHTENER AND HEATER Unavailable Unavailable BROWN, DALIA IDANIA TORCH STRAIGHTENER AND HEATER Unavailable Unavailable BROWN, DALIA IDANIA TORCH STRAIGHTENER AND HEATER Unavailable Unavailable BROWN, DALIA IDANIA TORCH STRAIGHTENER AND HEATER Unavailable Unavailable BROWN, DALIA IDANIA TORCH STRAIGHTENER AND HEATER Unavailable Unavailable BROWN, DALIA IDANIA TORCH STRAIGHTENER AND HEATER Unavailable Unavailable BROWN, DALIA IDANIA TORCH STRAIGHTENER AND HEATER Unavailable Unavailable BROWN, DALIA IDANIA TORCH STRAIGHTENER AND HEATER Unavailable Unavailable BROWN, DALIA IDANIA TORCH STRAIGHTENER AND HEATER Unavailable Unavailable BROWN, DALIA IDANIA TORCH STRAIGHTENER AND HEATER Unavailable Unavailable BROWN, DALIA IDANIA TORCH STRAIGHTENER AND HEATER Unavailable Unavailable BROWN, DALIA IDANIA TORCH STRAIGHTENER AND HEATER Unavailable Unavailable BROWN, DALIA IDANIA TORCH STRAIGHTENER AND HEATER Unavailable Unavailable BROWN, DALIA IDANIA TORCH STRAIGHTENER AND HEATER Unavailable Unavailable BROWN, DALIA IDANIA TORCH STRAIGHTENER AND HEATER Unavailable Unavailable BROWN, DALIA IDANIA TORCH STRAIGHTENER AND HEATER Unavailable Unavailable BROWN, DALIA IDANIA TORCH STRAIGHTENER AND HEATER Unavailable Unavailable BROWN, DALIA IDANIA TORCH STRAIGHTENER AND HEATER Unavailable Unavailable BROWN, DALIA IDANIA TORCH STRAIGHTENER AND HEATER Unavailable Unavailable BROWN, DALIA IDANIA TORCH STRAIGHTENER AND HEATER Unavailable Unavailable BROWN, DALIA IDANIA TORCH STRAIGHTENER AND HEATER Unavailable Unavailable BROWN, DALIA IDANIA TORCH STRAIGHTENER AND HEATER Unavailable Unavailable BROWN, DALIA IDANIA TORCH STRAIGHTENER AND HEATER Unavailable Unavailable Herson Montes M.D. Unavailable Herson Montes M.D. Unavailable [phone] Herson Montes M.D. Unavailable [phone] Herson Montes M.D. Unavailable Herson Montes M.D. Unavailable [phone] Herson Montes M.D. Unavailable Herson Montes M.D. Unavailable Matt De Souza LCSW Unavailable Unavailable Matt De Souza LCSW Unavailable Unavailable Re-disclosure Warning The records that you are about to access may contain information from federally-assisted alcohol or drug abuse programs. If such information is present, then the following federally mandated warning applies: This information has been disclosed to you from records protected by federal confidentiality rules (42 CFR part 2). The federal rules prohibit you from making any further disclosure of this information unless further disclosure is expressly permitted by the written consent of the person to whom it pertains or as otherwise permitted by 42 CFR part 2. A general authorization for the release of medical or other information is NOT sufficient for this purpose. The Federal rules restrict any use of the information to criminally investigate or prosecute any alcohol or drug abuse patient.The records that you are about to access may contain highly sensitive health information, the redisclosure of which is protected by Article 27-F of the [facility] Public Health law. If you continue you may have access to information: Regarding HIV / AIDS; Provided by facilities licensed or operated by the [facility] Office of Mental Health; or Provided by the [facility] Office for People With Developmental Disabilities. If such information is present, then the following [facility] mandated warning applies: This information has been disclosed to you from confidential records which are protected by state law. State law prohibits you from making any further disclosure of this information without the specific written consent of the person to whom it pertains, or as otherwise permitted by law. Any unauthorized further disclosure in violation of state law may result in a fine or residential sentence or both. A general authorization for the release of medical or other information is NOT sufficient authorization for further disc losure. Allergies and Adverse Reactions Type Description Substance Reaction Status Data Source(s ) Drug allergy Drug allergy almond Hives [facility] Drug allergy Drug allergy lavender (Lavandula angustifolia) Hives [facility] Drug allergy Drug allergy amoxicillin Hives I [facility] Drug allergy Drug allergy chamomile flower Other M Cant on [facility] Drug allergy Drug allergy Penicillins Hives I [facility] Encounters Encounter Providers Location Date Indications Data Source(s ) Outpatient Attender: PROVIDER DEFAULT 02/06/2021 02:03:09 AM EST [facility] Outpatient Attender: Shandra Roca [facility] 11:00:00 AM EST [facility] ([facility]) Outpatient Attender: NADINE Lawson FNPAttender: IDANIA LAWSON NP ED-LABPNP 02/01/2021 02:34:00 PM EST - 02/01/2021 02:35:00 PM EST Z124 [facility] Z124 Patient discharged. Outpatient Attender: NADINE Lawson FNPAttender : IDANIA LAWSON NP CPSCAORT-LABEJN 02/01/2021 10:15:00 AM EST Z12.4 [facility] Z12.4 Outpatient Attender: IDANIA LAWSON NP CPSCAORT-CPSGNOBG 11/2020 09:56:00 AM EST - 02/01/2021 09:57:00 AM EST [facility] Patient discharged. Outpatient Attender: Jane KAUR Physical Therapy 12/24 01:00:00 PM EDT [facility] ([facility] ) Outpatient Attender: CATY KAUR [facility]in [facility] 12/28/2020 10:00:00 AM EDT [facility] ([facility]) Outpatient Attender: CATY K[facility] 12/07/2020 03:15:00 PM EDT [facility] ([facility] MD) Outpatient Attender: CATY K[facility] 11/16/2020 10:15:00 AM EDT [facility] ([facility] MD) Inpatient Attender: Gilmar Rosen MDAdmi tter: Gilmar Rosen MDConsultant: FABI KAUR CPSCAORT-OB 10/11/2020 07:34:00 AM EDT - 10/13/2020 08:30:00 PM EDT REPEAT ; ACTIVE LABOR [facility] REPEAT ; ACTIVE LABOR Patient discharged. Outpatient Attender: Bran Montes M.D. SURG-NPLAB 10/05/2020 12:42:00 PM EDT [facility] Outpatient Attender: Bran Montes M.D. SURG-GENERATING PLANT SUPERINTENDENT. MAS 10/05/2020 08:32:00 AM EDT [facility] Outpatient Attender: Bran Montes M.D. LKKC-GENERATING PLANT SUPERINTENDENT. LSS 10/05/2020 08:31:00 AM EDT [facility] Outpatient Attender: Gilmar IVYCAPASCUAL-CPSCNOBG 09/15 10:48:00 AM EDT - 09/15/2020 10:49:00 AM EDT O99.323 [facility] O99.323 Patient discharged. Outpatient Attender: RACHELLE ACHARYA-CPSCNOBG 08/24 10:11:00 AM EDT - 09/03/2020 10:12:00 [facility] Outpatient Attender: RACHELLE IVYCAPASCUAL-CPSCNOBG 07/24 10:20:00 AM EDT - 08/06/2020 10:21:[facility] Inpatient Attender: Bran ortiz M.D.Admitter: Bran Montes M.D. CPSCAORT-OB 07/29/2020 10:13:00 PM EDT - 07/30/2020 04:00:00 PM EDT [facility] Patient discharged. Emergency Attender: Gil Pang M.D. SURG-ER 07/29/2020 11:50:0 0 AM EDT [facility] Patient discharged. Preadmit CPSCAORT-CHEPDREH 07/28/2020 12:00:00 PM EDT PS [facility] PSD Preadmit CPSCAORT-CHEPDREH 07/23/2020 01:00:00 PM EDT PS D [facility] PSD Outpatient Attender: RACHELLE DUNLAP MD CPSCAORT-CPSCNOBG 06/25 03:32:00 PM EDT - 07/21/2020 03:33:00 PM EDT [facility] Patient discharged. Outpatient Attender: RACHELLE DUNLAP MD CPSCAORT-CPSCNOBG 06/24 03:14:00 PM EDT - 07/06/2020 03:15:00 PM EDT [facility] Patient discharged. Preadmit CPSCAORT-CHEPDREH 06/30/2020 05:00:00 PM EDT PS D [facility] PSD Outpatient Attender: Lakia De Souza LCSWAttender: Contreras PIECE GOODS CLERK CPSCAORT-CHEPDREH 06/23/2020 05:00:00 PM EDT - 06/23/2020 05:01:00 PM EDT PSD [facility] PSD Patient discharged. Outpatient Attender: RACHELLE DUNLAP MD SURG-ULTRA 06/16/2020 12:29:00 P M EDT [facility]. Outpatient Attender: RACHELLE DUNLAP MD CPSCAORT-CPSCNOBG 05/24 12:15:00 PM EDT - 06/11/2020 12:16:00 PM EDT [facility] Patient discharged. Outpatient Attender: YANI RAJPUT DO CPSCAORT-CPSLAOPT 08:33:00 AM EDT - 06/10/2020 08:34:00 AM EDT [facility] Patient discharged. Outpatient Attender: RACHELLE DUNLAP MD CPSCAORT-CPSCNOBG 05/24 11:27:00 AM EST - 06/04/2020 11:28:00 AM EST [facility] Patient discharged. Outpatient Attender: RACHELLE DUNLAP MD CPSCAORT-CPSCNOBG 05/2020 01:39:00 PM EST - 05/26/2020 01:40:00 PM EST [facility] Patient discharged. Outpatient Attender: Nataly Ledezma MD CPSCAORT-AUOB6AWC 05/19 09:33:00 AM EST - 05/19/2020 09:34:00 AM [facility] Patient discharged. Inpatient Attender: CAROL QUIROZSalome Altman nder: Carol Yost MDAdmitter: Carol Yost MDReferrer: NADINE Tuyet Spears CPSCAORT-CHEPPDREH 05/17/2020 04:16:00 P M EST - 06/14/2020 04:25:00 PM EDT PSYCHOACTIVE SUBSTANCE DEPENDENCE [facility] PSYCHOACTIVE SUBSTANCE DEPENDENCE Patient discharged. Outpatient Attender: RACHELLE DUNLAP MD CPSCAORT-CPSCNOBG 04/26 01:50:00 PM EST - 05/12/2020 01:51:00 PM [facility] Patient discharged. Outpatient Attender: RACHELLE DUNLAP MD SURG-ULTRA 05/12/2020 11:18:00 A M [facility] Medications Medication Brand Name Start Date Product Form Dose Route Admi nistrative Instructions Pharmacy Instructions Status Indications Reaction Description Data Source(s) Nicotine 4 MG Oral Lozenge Nicotine Polacrilex 02/03/2021 12:00:00 AM EST ORAL active [facility] (Destini Schneider MD) tizanidine 4 MG Oral Tablet Tizanidine HCL 02/03/2021 12:00:00 AM EST ORAL completed [facility] ([facility]on [facility] MD) tizanidine 6 MG Oral Capsule Tizanidine HCL 02/03/2021 12:00:00 AM EST ORAL active [facility] (Peterson Schneider MD) ropinirole 1 MG Oral Tablet [Requip] Requip 02/03/2021 12:00:00 AM EST ORAL active [facility] ([facility]eterson Schneider MD) 8-2 mg 11/01/2020 12:00:00 AM EDT film 35 DISSOLVE 2 1/2 FILMS UNDER THE TONGUE ONCE DAILY MAXIMUM DAILY DOSE = 2 1/2 FILMS DISSOLVE 2 1/2 FILMS UNDER THE TONGUE ONCE DAILY MAXIMUM DAILY DOSE = 2 1/2 FILMS SOLD: 11/01/2020 [facility] 150 mg 10/27/2020 12:00:00 AM EDT capsule,extended releas e 24hr 60 TAKE ONE CAPSULE BY MOUTH TWICE A DAY TAKE ONE CAPSULE BY MOUTH TWICE A DAY SOLD: 10/27/2020 [facility] 8-2 mg 10/19/2020 12:00:00 AM EDT film 35 TAKE 2 & 1/2 FILMS UNDER THE TONGUE ONCE DAILY MAXIMUM DAILY DOSE = 2 & 1/2 FILMS TAKE 2 & 1/2 FILMS UNDER THE TONGUE ONCE DAILY MAXIMUM DAILY DOSE = 2 & 1/2 FILMS SOLD: 10/19/2020 [facility] Cephalexin 500 MG Oral Capsule CEPHALEXIN 10/13/2020 12:00:00 AM EDT capsule 40 TAKE ONE CAPSULE BY MOUTH EVERY 6 HOURS FOR 10 DAYS TA KE ONE CAPSULE BY MOUTH EVERY 6 HOURS FOR 10 DAYS SOLD: 10/14/2020 [facility] 5-325 mg 10/13/2020 12:00:00 AM EDT tablet 20 TAKE ONE TABLET BY MOUTH EVERY 4 HOURS NEEDED FOR PAIN MAXIMUM DAILY DOSE = SIX TABLETS TAKE ONE TABLET BY MOUTH EVERY 4 HOURS NEEDED FOR PAIN MAXIMUM DAILY DOSE = SIX TABLETS SOLD: 10/14/2020 [facility] 8-2 mg 10/04/2020 12:00:00 AM EDT film 35 PLACE ONE FILM UNDER THE TONGUE EVERY MORNING, 1/2 FILM IN THE AFTERNOON, AND 1 FILM IN THE EVENING MAXIMUM DAILY DOSE = 2 & 1/[address] ONE FILM UNDER THE TONGUE EVERY MO RNING, 1/2 FILM IN THE AFTERNOON, AND 1 FILM IN THE EVENING MAXIMUM DAILY DOSE = 2 & 1/2 FILMS SOLD: 10/04/2020 [facility] 8-2 mg 09/18/2020 12:00:00 AM EDT film 35 [address] ONE FILM UNDER THE TONGUE EVERY MORNING 1/2 FILM EVERY AFTERNOON AND 1 FILM EVERY EVENING MAXIMUM DAILY DOSE = 2 & 1/[address] ONE FILM UNDER THE TONGUE EVERY MO RNING 1/2 FILM EVERY AFTERNOON AND 1 FILM EVERY EVENING MAXIMUM DAILY DOSE = 2 & 1/2 FILMS SOLD: 09/20/2020 [facility] 8-2 mg 09/06/2020 12:00:00 AM EDT film 35 PLACE ONE FILM UNDER THE TONGUE EVERY MORNING, ONE-HALF FILM EVERY AFTERNOON, AND ONE FILM EVERY EVENING MAXIMUM DAILY DOSE = 2 & 1/2 PLACE ONE FILM UNDER THE TONGUE EVERY MO RNING, ONE-HALF FILM EVERY AFTERNOON, AND ONE FILM EVERY EVENING MAXIMUM DAILY DOSE = 2 & 1/2 SOLD: 09/06/2020 [facility] 150 mg 09/03/2020 12:00:00 AM EDT capsule,extended releas e 24hr 60 TAKE ONE CAPSULE BY MOUTH TWICE A DAY WITH FOOD TAKE ONE CAPSULE BY MOUTH TWICE A DAY WITH FOOD SOLD: 09/06/2020 [facility] 8-2 mg 08/17/2020 12:00:00 AM EDT film 35 TAKE 2 & 1/2 FILMS UNDER THE TONGUE ONCE DAILY MAXIMUM DAILY DOSE = 2 & 1/2 FILMS TAKE 2 & 1/2 FILMS UNDER THE TONGUE ONCE DAILY MAXIMUM DAILY DOSE = 2 & 1/2 FILMS SOLD: 08/18/2020 [facility] 150 mg 08/07/2020 12:00:00 AM EDT capsule,extended releas e 24hr 60 TAKE ONE CAPSULE BY MOUTH TWICE A DAY WITH FOOD TAKE ONE CAPSULE BY MOUTH TWICE A DAY WITH FOOD SOLD: 08/12/2020 [facility] 8-2 mg 08/05/2020 12:00:00 AM EDT film 35 PLACE TWO AND ONE-HALF FILMS UNDER THE TONGUE EVERY DAY MAXIMUM DAILY DOSE = 2 1/[address] TWO AND ONE-HALF FILMS UNDER THE TONGUE EVERY DAY MAXIMUM DAILY DOSE = 2 1/2 FILMS SOLD: 08/05/2020 [facility] 50 mg 07/30/2020 12:00:00 AM EDT capsule 28 TAKE ONE CAPSULE BY MOUTH FOUR TIMES A DAY UNTIL GONE TAKE ONE CAPSULE BY MOUTH FOUR TIMES A DAY UNTIL GONE SOLD: 07/30/2020 [facility] 8-2 mg 07/28/2020 12:00:00 AM EDT film 20 PLACE TWO AND ONE-HALF FILMS UNDER THE TONGUE EVERY DAY MAXIMUM DAILY DOSE = 2 1/[address] TWO AND ONE-HALF FILMS UNDER THE TONGUE EVERY DAY MAXIMUM DAILY DOSE = 2 1/2 FILMS SOLD: 07/28/2020 [facility] 8-2 mg 07/20/2020 12:00:00 AM EDT film [address]ACE TWO AND ONE-HALF FILMS UNDER THE TONGUE EVERY DAY - MAXIMUM DAILY DOSE = 2 & 1/[address] TWO AND ONE- HALF FILMS UNDER THE TONGUE EVERY DAY - MAXIMUM DAILY DOSE = 2 & 1/2 FILMS SOLD: 07/21/2020 [facility] 8-2 mg 07/13/2020 12:00:00 AM EDT film [address]ACE ONE AND ONE-HALF FILMS UNDER THE TONGUE EVERY MORNING AND PLACE ONE FILM UNDER THE TONGUE EVERY EVENING, MAXIMUM DAILY DOSE = 2 & 1/2 PLACE ONE AND ONE-HALF FILMS UNDER THE T ONGUE EVERY MORNING AND PLACE ONE FILM UNDER THE TONGUE EVERY EVENING, MAXIMUM DAILY DOSE = 2 & 1/2 SOLD: 07/13/2020 [facility] 150 mg 07/08/2020 12:00:00 AM EDT capsule,extended releas e 24hr 60 TAKE ONE CAPSULE BY MOUTH TWICE A DAY WITH FOOD TAKE ONE CAPSULE BY MOUTH TWICE A DAY WITH FOOD SOLD: 07/08/2020 [facility] 8-2 mg 07/07/2020 12:00:00 AM EDT film [address] PLACE ONE AND ONE-HALF FILMS UNDER THE TONGUE EVERY MORNING AND ONE FILM EVERY EVENING MAXIMUM DAILY DOSE = 2 1/[address] ONE AND ONE-HALF FILMS UNDER THE T ONGUE EVERY MORNING AND ONE FILM EVERY EVENING MAXIMUM DAILY DOSE = 2 1/2 FILMS SOLD: 07/08/2020 [facility] 8-2 mg 06/30/2020 12:00:00 AM EDT film [address]ACE ONE AND ONE-HALF FILMS UNDER THE TONGUE EVERY MORNING AND 1 FILM IN THE EVENING MAXIMUM DAILY DOSE = 2 1/[address] ONE AND ONE-HALF FILMS UNDER THE T ONGUE EVERY MORNING AND 1 FILM IN THE EVENING MAXIMUM DAILY DOSE = 2 1/2 FILMS SOLD: 07/01/2020 [facility] 3 mg 06/29/2020 12:00:00 AM EDT tablet 8 TAKE ONE TABLET BY MOUTH AT BEDTIME TAKE ONE TABLET BY MOUTH AT BEDTIME SOLD: 07/01/2020 [facility] 150 mg 06/29/2020 12:00:00 AM EDT capsule,extended releas e 24hr 16 TAKE ONE CAPSULE BY MOUTH TWICE A DAY TAKE ONE CAPSULE BY MOUTH TWICE A DAY SOLD: 07/01/2020 [facility] 8-2 mg 06/21/2020 12:00:00 AM EDT film 20 PLACE 1 & 1/2 FILMS UNDER THE TONGUE EVERY MORNING AND PLACE ONE FILM UNDER THE TONGUE EVERY EVENING MAXIMUM DAILY DOSE = 2 & 1/[address] 1 & 1/2 FILMS UNDER THE TONGUE ARELI RY MORNING AND PLACE ONE FILM UNDER THE TONGUE EVERY EVENING MAXIMUM DAILY DOSE = 2 & 1/2 FILMS SOLD: 06/23/2020 [facility] 8-2 mg 06/16/2020 12:00:00 AM EDT film 14 PLACE ONE FILM UNDER THE TONGUE TWICE A DAY MAXIMUM DAILY DOSE = 2 PLACE ONE FILM UNDER THE TONGUE TWICE A DAY MAXIMUM DAILY DOSE = 2 SOLD: 06/16/2020 [facility] 2 mg 06/14/2020 12:00:00 AM EDT gum 220 CHEW ONE PIECE EVERY 1 HOUR NEEDED FOR NICOTINE CRAVINGS CHEW ONE PIECE EVERY 1 HOUR NEEDED FO R NICOTINE CRAVINGS SOLD: 06/16/2020 [facility] 21 mg/24 hr 06/14/2020 12:00:00 AM EDT patch 24 hour 28 APPLY ONE PATCH TO THE SKIN EVERY DAY APPLY ONE PATCH TO THE SKIN EVERY DAY SOLD: 06/16/2020 [facility] 4-1 mg 06/13/2020 12:00:00 AM EDT film 7 PLACE ONE FILM UNDER THE TONGUE EVERY MORNING AT 6 MAXIMUM DAILY DOSE = 1 PLACE ONE FILM UNDER THE TONGUE EVERY MORNING AT 6 MAXIMUM DAILY DOSE = 1 SOLD: 06/16/2020 [facility] 3 mg 06/13/2020 12:00:00 AM EDT tablet 21 TAKE THREE TABLETS BY MOUTH AT BEDTIME TAKE THREE TABLETS BY MOUTH AT BEDTIME SOLD: 06/16/2020 [facility] 4 mg/actuation 06/13/2020 12:00:00 AM EDT spray,non-aerosol 2 DIRECTED DIRECTED SOLD: 06/16/2020 [facility] 800-160 mg 06/13/2020 12:00:00 AM EDT tablet 14 TAKE ONE TABLET BY MOUTH TWICE A DAY FOR 7 DAYS TAKE ONE TABLET BY MOUTH TWICE A DAY FOR 7 DAYS SOLD: 06/16/2020 [facility] 75 mg 06/13/2020 12:00:00 AM EDT capsule,extended releas e 24hr 21 TAKE THREE CAPSULES BY MOUTH EVERY DAY TAKE THREE CAPSULES BY MOUTH EVERY DAY SOLD: 06/16/2020 [facility] 8-2 mg 05/14/2020 12:00:00 AM EST film 15 PLACE 1 & 1/2 FILMS UNDER THE TONGUE EVERY MORNING AND 1 FILM UNDER THE TONGUE EVERY EVENING MAXIMUM DAILY DOSE = 2 & 1/[address] 1 & 1/2 FILMS UNDER THE TONGUE ARELI RY MORNING AND 1 FILM UNDER THE TONGUE EVERY EVENING MAXIMUM DAILY DOSE = 2 & 1/2 FILMS SOLD: 05/17/2020 [facility] 8-2 mg 05/14/2020 12:00:00 AM EST film 15 PLACE 1 & 1/2 FILMS UNDER THE TONGUE EVERY MORNING AND 1 FILM UNDER THE TONGUE EVERY EVENING MAXIMUM DAILY DOSE = 2 & 1/[address] 1 & 1/2 FILMS UNDER THE TONGUE ARELI RY MORNING AND 1 FILM UNDER THE TONGUE EVERY EVENING MAXIMUM DAILY DOSE = 2 & 1/2 FILMS SOLD: 08/31/2020 [facility] 8 mg 05/13/2020 12:00:00 AM EST tablet, sublingual 5 TAKE 1 & 1/2 TABLETS UNDER THE TONGUE EVERY MORNING AND 1 TABLET UNDER THE TONGUE EVERY EVENING MAXIMUM DAILY DOSE = 2 & 1/2 TABLETS TAKE 1 & 1/2 TABLETS UNDER THE TONGUE EV ANAHY MORNING AND 1 TABLET UNDER THE TONGUE EVERY EVENING MAXIMUM DAILY DOSE = 2 & 1/2 TABLETS SOLD: 05/13/2020 [facility] 300 mg 05/12/2020 12:00:00 AM EST capsule 60 TAKE TWO CAPSULES BY MOUTH EVERY 8 HOURS FOR 10 DAYS TAKE TWO CAPSULES BY MOUTH EVERY 8 HOURS FOR 10 DAYS SOLD: 05/12/2020 [facility] 150 mg 05/12/2020 12:00:00 AM EST capsule,extended releas e 24hr 30 TAKE ONE CAPSULE BY MOUTH EVERY DAY TAKE ONE CAPSULE BY MOUTH EVERY DAY SOLD: 05/12/2020 [facility] venlafaxine 100 MG Oral Tablet VENLAFAXINE HCL 05/12/2020 12:00: 00 AM EST tablet 30 TAKE ONE TABLET BY MOUTH EVERY D AY WITH FOOD TAKE ONE TABLET BY MOUTH EVERY DAY WITH FOOD SOLD: 05/12/2020 [facility] 8 mg 05/07/2020 12:00:00 AM EST tablet, sublingual 35 PLACE ONE AND ONE-HALF TABLET UNDER THE TONGUE EVERY MORNING AND PLACE ONE TABLET UNDER THE TONGUE EVERY EVENING, MAXIMUM DAILY DOSE = 2 & 1/2 PLACE ONE AND ONE-HALF TABLET UNDER THE TONGUE EVERY MORNING AND PLACE ONE TABLET UNDER THE TONGUE EVERY EVENING, MAXIMUM DAILY DOSE = 2 & 1/2 SOLD: 05/07/2020 [facility] 8 mg 04/24/2020 12:00:00 AM EST tablet, sublingual 35 PLACE ONE AND ONE-HALF TABLETS UNDER THE TONGUE EVERY MORNING AND ONE TABLET EVERY EVENING MAXIMUM DAILY DOSE = 2 1/[address] ONE AND ONE-HALF TABLETS UNDER THE TONGUE EVERY MORNING AND ONE TABLET EVERY EVENING MAXIMUM DAILY DOSE = 2 1/2 TABLETS SOLD: 04/24/2020 [facility] 8 mg 04/10/2020 12:00:00 AM EST tablet, sublingual 35 TAKE 1 & 1/2 TABLETS UNDER THE TONGUE EVERY MORNING AND TAKE ONE TABLET UNDER THE TONGUE EVERY EVENING MAXIMUM DAILY DOSE = 2 & 1/2 TABLETS TAKE 1 & 1/2 TABLETS UNDER THE TONGUE EVERY MORNING AND TAKE ONE TABLET UNDER THE TONGUE EVERY EVENING MAXIMUM DAILY DOSE = 2 & 1/2 TABLETS SOLD: 04/10/2020 [facility] 8 mg 03/26/2020 12:00:00 AM EST tablet, sublingual 35 PLACE 1 & 1/2 TABLETS UNDER THE TONGUE EVERY MORNING AND 1 EVERY EVENING MAXIMUM DAILY DOSE = 2 & 1/2 PLACE 1 & 1/2 TABLETS UNDER THE TONGUE EVERY MORNING AND 1 EVERY EVENING MAXIMUM DAILY DOSE = 2 & 1/2 SOLD: 03/28/2020 [facility] 8-2 mg 03/13/2020 12:00:00 AM EST film 35 PLACE ONE AND ONE-HALF FILMS UNDER THE TONGUE EVERY MORNING AND 1 FILM EVERY EVENING - MAXIMUM DAILY DOSE = 2 & 1/[address] ONE AND ONE-HALF FILMS UNDER THE T ONGUE EVERY MORNING AND 1 FILM EVERY EVENING - MAXIMUM DAILY DOSE = 2 & 1/2 FILMS SOLD: 03/14/2020 [facility] 37.5 mg 03/11/2020 12:00:00 AM EST capsule,extended releas e 24hr 14 TAKE ONE CAPSULE BY MOUTH EVERY DAY TAKE ONE CAPSULE BY MOUTH EVERY DAY SOLD: 03/11/2020 [facility] 25 mg 03/11/2020 12:00:00 AM EST tablet 28 TAKE ONE TABLET BY MOUTH AT BEDTIME AND ONE-HALF TABLET TWO TIMES A DAY NEEDED TAKE ONE TABLET BY MOUTH AT BEDTIME AND ONE-HALF TABLET TWO TIMES A DAY NEEDED SOLD: 03/11/2020 [facility] 8-2 mg 03/05/2020 12:00:00 AM EST film 20 PLACE ONE AND ONE-HALF FILMS UNDER THE TONGUE EVERY MORNING AND THEN PLACE ONE FILM UNDER THE TONGUE EVERY EVENING MAXIMUM DAILY DOSE = 2 & 1/[address] ONE AND ONE-HALF FILMS UNDER THE TONGUE EVERY MORNING AND THEN PLACE ONE FILM UNDER THE TONGUE EVERY EVENING MAXIMUM DAILY DOSE = 2 & 1/2 FILMS SOLD: 03/06/2020 [facility] 25 mg 03/03/2020 12:00:00 AM EST tablet 16 TAKE 1/2 TABLET BY MOUTH 2 TIMES DAILY NEEDED AND 1 TABLET BY MOUTH AT BEDTIME TAKE 1/2 TABLET BY MOUTH 2 TIMES DAILY NEEDED AND 1 TABLET BY MOUTH AT BEDTIME SOLD: 03/03/2020 [facility] 37.5 mg 03/03/2020 12:00:00 AM EST capsule,extended releas e 24hr 7 TAKE ONE CAPSULE BY MOUTH EVERY DAY TAKE ONE CAPSULE BY MOUTH EVERY DAY SOLD: 03/03/2020 [facility] 8-2 mg 02/25/2020 12:00:00 AM EST film 20 DISSOLVE 1 AND 1/2 FILMS SUBLINGUALLY EVERY MORNING AND 1 FILM EVERY EVENING MAX = 2 AND 1/2 FILMS/DAY DISSOLVE 1 AND 1/2 FILMS SUBLINGUALLY EVERY MORNING AND 1 FILM EVERY EVENING MAX = 2 AND 1/2 FILMS/DAY SOLD: 02/27/2020 [facility] 25 mg 02/25/2020 12:00:00 AM EST tablet 16 TAKE 1/2 TABLET BY MOUTH TWICE DAILY AND 1 TABLET AT BEDTIME TAKE 1/2 TABLET BY MOUTH TWICE DAILY AND 1 TABLET AT BEDTIME SOLD: 02/27/2020 [facility] 25 mg 02/17/2020 12:00:00 AM EST tablet 8 TAKE 1 TABLET BY MOUTH AT BEDTIME TAKE 1 TABLET BY MOUTH AT BEDTIME SOLD: 02/17/2020 [facility] 8-2 mg 02/17/2020 12:00:00 AM EST film 20 PLACE 1 & 1/2 FILMS UNDER THE TONGUE EVERY MORNING AND 1 FILM EVERY EVENING MAXIMUM DAILY DOSE = 2 & 1/[address] 1 & 1/2 FILMS UNDER THE TONGUE ARELI RY MORNING AND 1 FILM EVERY EVENING MAXIMUM DAILY DOSE = 2 & 1/2 FILMS A DAY SOLD: 02/17/2020 [facility] 8-2 mg 02/03/2020 12:00:00 AM EST film 35 DISSOLVE 1 AND 1/2 FILMS SUBLINGUALLY DAILY IN THE MORNING AND 1 FILM DAILY IN THE EVENING MAX = 2 AND 1/2 FIMS/DAY DISSOLVE 1 AND 1/2 FILMS SUBLINGUALLY DA BRYAN IN THE MORNING AND 1 FILM DAILY IN THE EVENING MAX = 2 AND 1/2 FIMS/DAY SOLD: 02/03/2020 [facility] 8-2 mg 01/05/2020 12:00:00 AM EDT film 35 PLACE 1 & 1/2 FILMS UNDER THE TONGUE IN THE MORNING AND 1 FILM EVERY EVENING MAXIMUM DAILY DOSE = 2 & 1/[address] 1 & 1/2 FILMS UNDER THE TONGUE IN THE MORNING AND 1 FILM EVERY EVENING MAXIMUM DAILY DOSE = 2 & 1/2 FILMS A DAY SOLD: 01/05/2020 [facility] Insurance Providers Payer name Policy type / Coverage type Policy ID Covered democrat ID Covered democrat's relationship to velez Policy Velez Plan Information [id number] [id number] SP [id number] SRMHS [id number] SP [id number] SRMHS [id number] SP [id number] SRMHS [id number] SP [id number] [facility] [employer] [facility] [facility] [id number] SP [id number] [facility] [id number] Unemployed [id number] MEDICAID [id number] Unemployed [id number] [facility] [id number] S [id number] F F [facility] [id number] S [id number] [facility] [id number] S [id number] MEDICAID [id number] S [id number] [facility] [id number] S [id number] [facility] MEDICAID [id number] SP [id number] SP [id number] SRMHS [id number] SP [id number] S [id number] SELF-PAY [id number] S [id number] [facility] PHYSICIAN [id number] S [id number] MEDICAID PROF FEES [id number] S E [id number] [facility] [id number] SP [id number] MEDICAID [id number] [facility] [id number] Unemployed [id number] [facility] [id number] S [id number] [facility] [id number] SP [id number] [facility] MEDICAID [id number] SP [id number] J Problems, Conditions, and Diagnoses Code Display Name Description Problem Type Effective Dates Data Source(s) Z11.51 Encounter for screening for human papill omavirus (HPV) ENCOUNTER FOR SCREENING FOR HUMAN PAPILLOMAVIRUS (HPV) Diagnosis 02/01/2021 02:34:00 PM [facility] Z12.4 Encounter for screening for malignant ne oplasm of cervix ENCOUNTER FOR SCREENING FOR MALIGNANT NEOPLASM OF CERVIX Diagnosis 02/01/2021 02:34: 00 PM [facility] Z12.4 Encounter for screening for malignant ne oplasm of cervix ENCOUNTER FOR SCREENING FOR MALIGNANT NEOPLASM OF CERVIX Diagnosis 02/01/2021 09:56: 00 AM [facility] Z12.39 Encounter for other screening for malign ant neoplasm of breast ENCOUNTER FOR OTH SCREENING FOR MALIGNANT NEOPLASM OF BREAST Diagnosis 11/2020 09:56:00 AM [facility] Z01.419 Encounter for gynecological examination (general) (routine) without abnormal findings ENCNTR FOR DEHYDROGENATION CONVERTER OPERATOR EXAM (GENERAL) (ROUTINE) W/O ABN FINDIN GS Diagnosis 02/01/2021 09:56:00 AM [facility] Z37.0 Single live SINGLE LIVE Diagnosis 10/11/2020 07:34:00 AM [facility] Z3A.35 35 weeks gestation of 35 WEEKS GESTATI ON OF Diagnosis 10/11/2020 07:34:00 AM [facility] O32.1XX0 Maternal care for breech presentation, n ot applicable or unspecified MATERNAL CARE FOR BREECH PRESENTATION, UNSP Diagnosis 10/11/2020 07:34:00 AM [facility] L02.415 Cutaneous abscess of right lower limb CU TANEOUS ABSCESS OF RIGHT LOWER LIMB Diagnosis 10/11/2020 07:34:00 AM [facility] L02.416 Cutaneous abscess of left lower limb CUT ANEOUS ABSCESS OF LEFT LOWER LIMB Diagnosis 10/11/2020 07:34:00 AM [facility] O60.13X0 labor second trimest er with delivery third trimester, not applicable or unspecified LABOR SECOND TRI W DELIV ANAHY THIRD TRI, UNSP Diagnosis 10/11/2020 07:34:00 AM [facility] F17.210 Nicotine dependence, cigarettes, uncompl icated NICOTINE DEPENDENCE, CIGARETTES, UNCOMPLICATED Diagnosis 10/11/2020 07:34:00 AM [facility] O99.334 Smoking (tobacco) complicating childbirt h SMOKING (TOBACCO) COMPLICATING CHILDBIRTH Diagnosis 10/11/2020 07:34:00 AM [facility] Z91.19 Patient's noncompliance with other medic al treatment and regimen PATIENT'S NONCOMPLIANCE W OTH MEDICAL TREATMENT AND REGIMEN Diagnosis 10/11/2020 07:34:00 AM [facility] F32.9 Major depressive disorder, single episod e, unspecified MAJOR DEPRESSIVE DISORDER, SINGLE EPISODE, UNSPECIFIED Diagnosis 10/11/2020 07:34:00 AM EDT [facility] O99.344 Other mental disorders complicating chil dbirth OTHER MENTAL DISORDERS COMPLICATING CHILDBIRTH Diagnosis 10/11/2020 07:34:00 AM EDT [facility] B19.20 Unspecified viral hepatitis C without he patic coma UNSPECIFIED VIRAL HEPATITIS C WITHOUT HEPATIC COMA Diagnosis 10/11/2020 07:34:00 AM EDT [facility] O98.42 Viral hepatitis complicating childbirth VIRAL HEPATITIS COMPLICATING CHILDBIRTH Diagnosis 10/11/2020 07:34:00 AM EDT [facility] F19.10 Other psychoactive substance abuse, unco mplicated OTHER PSYCHOACTIVE SUBSTANCE ABUSE, UNCOMPLICATED Diagnosis 10/11/2020 07:34:00 AM EDT [facility] O99.324 Drug use complicating childbirth DRUG USE COMPLI CATING CHILDBIRTH Diagnosis 10/11/2020 07:34:00 AM EDT [facility] O34.211 Maternal care for low transverse scar fr om previous delivery MATERN CARE FOR LOW TRANSVERSE SCAR FROM PREV DEL Diagnosis 10/11/2020 07:34:00 AM [facility] Z34.83 Encounter for supervision of other sabrina l , third trimester ENCOUNTER FOR SUPRVSN OF NORMAL , THIRD TRIMESTER Diagnosis 10/05/2020 12:42:00 PM EDT [facility] O99.323 Drug use complicating , third t rimester DRUG USE COMPLICATING , THIRD TRIMESTER Diagnosis 09/15/2020 10:48:00 AM EDT [facility] O09.33 Supervision of wit h insufficient care, third trimester SUPRVSN OF PREG W INSUFFICIENT ANTENAT CARE, THIRD TRI MESTER Diagnosis 09/15/2020 10:48:00 AM [facility] Z3A.32 32 weeks gestation of 32 WEEKS GESTATI ON OF Diagnosis 09/15/2020 10:48:00 AM [facility] F11.20 Opioid dependence, uncomplicated OPIOID DEPENDEN CE, UNCOMPLICATED Diagnosis 09/03/2020 10:11:00 AM [facility] Z34.83 Encounter for supervision of other sabrina l , third trimester ENCOUNTER FOR SUPRVSN OF NORMAL , THIRD TRIMESTER Diagnosis 09/03/2020 10:11:00 AM [facility] Z3A.26 26 weeks gestation of 26 WEEKS GESTATI ON OF Diagnosis 08/06/2020 10:20:00 AM [facility] Z34.82 Encounter for supervision of other sabrina l , second trimester ENCOUNTER FOR SUPRVSN OF NORMAL , SECOND TRIMESTER Diagnosis 08/06/2020 10:20:00 AM [facility] Z3A.24 24 weeks gestation of 24 WEEKS GESTATI ON OF Diagnosis 07/21/2020 03:32:00 PM [facility] F17.200 Nicotine dependence, unspecified, uncomp licated NICOTINE DEPENDENCE, UNSPECIFIED, UNCOMPLICATED Diagnosis 06/23/2020 05:00:00 PM [facility] F14.20 Cocaine dependence, uncomplicated COCAINE DEPEND ENCE, UNCOMPLICATED Diagnosis 06/23/2020 05:00:00 PM [facility] F10.21 Alcohol dependence, in remission ALCOHOL DEPENDE NCE, IN REMISSION Diagnosis 06/23/2020 05:00:00 PM [facility] F11.21 Opioid dependence, in remission OPIOID DEPENDENC E, IN REMISSION Diagnosis 06/23/2020 05:00:00 PM [facility] Z3A.16 16 weeks gestation of 16 WEEKS GESTATI ON OF Diagnosis 06/16/2020 12:29:00 PM [facility]. F43.10 Post-traumatic stress disorder, unspecif ied POST-TRAUMATIC STRESS DISORDER, UNSPECIFIED Diagnosis 05/17/2020 04:16:00 PM [facility] G47.00 Insomnia, unspecified INSOMNIA, UNSPECIFIED Diagnosis 05/17/2020 04:16:00 PM [facility] F41.9 Anxiety disorder, unspecified ANXIETY DISORDER, UNSPEC IFIED Diagnosis 05/17/2020 04:16:00 PM [facility] O99.342 Other mental disorders complicating preg tan, second trimester OTH MENTAL DISORDERS COMP , SECOND TRIMESTER Diagnosis 04/27 04:16:00 PM [facility] Z3A.14 14 weeks gestation of 14 WEEKS GESTATI ON OF Diagnosis 05/17/2020 04:16:00 PM [facility] Z88.0 Allergy status to penicillin ALLERGY STATUS TO PENICIL KIMBER Diagnosis 05/17/2020 04:16:00 PM [facility] H52.13 Myopia, bilateral MYOPIA, BILATERAL Diagnosis 05/17/2020 04:16:00 PM [facility] B39.9 Histoplasmosis, unspecified HISTOPLASMOSIS, UNSPECIFIE D Diagnosis 05/17/2020 04:16:00 PM [facility] H16.223 Keratoconjunctivitis sicca, not specifie d as Sjogren's, bilateral KERATOCONJUNCT SICCA, NOT SPECIFIED SJOGREN'S, BILATERAL Diagnosis 05/17/2020 04:16:00 PM [facility] F17.290 Nicotine dependence, other tobacco produ ct, uncomplicated NICOTINE DEPENDENCE, OTHER TOBACCO PRODUCT, UNCOMPLICATED Diagnosis 05/17 04:16:00 PM [facility] O99.322 Drug use complicating , second trimester DRUG USE COMPLICATING , SECOND TRIMESTER Diagnosis 05/17/2020 04:16:00 PM [facility] B96.89 Other specified bacterial ag ents as the cause of diseases classified elsewhere OTH BACTERIAL AGENTS THE CAUSE OF DISEASES CLASSD ELSWHR Diagnosis 05/17/2020 04:16:00 PM [facility] L02.211 Cutaneous abscess of abdominal wall CUTANEOUS AB SCESS OF ABDOMINAL WALL Diagnosis 05/17/2020 04:16:00 PM [facility] B18.2 Chronic viral hepatitis C CHRONIC VIRAL HEPATITIS C Di agnosis 05/17/2020 04:16:00 PM [facility] Z3A.12 12 weeks gestation of 12 WEEKS GESTATI ON OF Diagnosis 05/12/2020 11:18:00 AM EST [facility]. [id number] Drug dependence Drug dependence Problem 02/02/2021 12:0 0:00 AM EST [facility] ([facility]on [facility]) [id number] Nicotine dependence Nicotine dependence Problem 1 04/04/2020 12:00:00 AM EST [facility] ([facility]) [id number] Insomnia Insomnia Problem 02/02/2021 12:00:00 AM ES T [facility] ([facility]) [id number] Anxiety state Anxiety state Problem 02/02/2021 12:00:00 AM EST [facility] ([facility]) Surgeries/Procedures Procedure Description Date Indications Data Source(s) OFFICE OUTPATIENT VISIT 25 MINUTES 02/03/2021 12:00:00 AM EST [facility] ([facility]) TOBACCO USE CESSATION INTERMEDIATE 3-10 MINUTES 2020 12:00:00 AM EST [facility] ([facility]) PERIODIC PREVENTIVE MED EST PATIENT 18-39 YRS PREV VISIT EST AGE 18-39 02/01/2021 12:00:00 AM [facility] 36425 HPV HIGH-RISK TYPES 02/01/2021 12:00:00 AM [facility] CYTP CERV/VAG AUTO THIN LAYER PREP MNL SCREEN CYTOPATH C/V T HIN LAYER 02/01/2021 12:00:00 AM [facility] RADEX FOOT COMPLETE MINIMUM 3 VIEWS 01/07/2021 12:00:0 0 AM EDT [facility] ([facility]) OFFICE OUTPATIENT NEW 45 MINUTES 01/07/2021 12:00:00 A M EDT [facility] ([facility]) OFFICE OUTPATIENT VISIT 10 MINUTES 12/28/2020 12:00:00 AM EDT [facility] ([facility]) OFFICE OUTPATIENT VISIT 15 MINUTES 12/07/2020 12:00:00 AM EDT [facility] ([facility]) OFFICE OUTPATIENT NEW 30 MINUTES 11/16/2020 12:00:00 A M EDT [facility] ([facility]) Extraction of Products of Conception, Low Cervical, Op en Approach EXTRACTION OF PRODUCTS OF CONCEPTION, LOW, OPEN APPROACH 10/11/2020 12:00:00 AM [facility] OFFICE OUTPATIENT VISIT 10 MINUTES OFFICE/OUTPATIENT VISIT E ST 09/15/2020 12:00:00 AM [facility] [address]251 DRUG SCREENING BUPRENORPHINE 09/15/2020 12:00:00 AM ED [facility] [address]755 DRUG TEST PRSMV CHEM ANLYZR 09/15/2020 12:00:00 AM [facility] BIOPHYSICAL PROFILE W/O NON-STRESS TESTING 07/29 12:00:00 AM [facility] ANTIBODY RUBELLA 07/29/2020 12:00:00 AM [facility] ANTIBODY VARICELLA-ZOSTER 07/29/2020 12:00:00 AM [facility] CUL PRSMPTV PTHGNC ORGANISM SCRN W/COLONY ESTIMJ 07/29 12:00:00 AM [facility] SUSCEPTIBLTY STDY ANTIMICRBIAL MICRO/AGAR DILUTJ 07/29 12:00:00 AM [facility] IAAD EIA HIV-1 AG W/HIV-1&HIV-2 ANTBDY SINGLE 07/30/19 12:00:00 AM [facility] URINALYSIS MICROSCOPIC ONLY 07/29/2020 12:00:00 AM [facility] THROMBOPLASTIN TIME PARTIAL PLASMA/WHOLE BLOOD 021 12:00:00 AM [facility] PROTHROMBIN TIME 07/29/2020 12:00:00 AM [facility] COMPREHENSIVE METABOLIC PANEL 07/29/2020 12:00:00 AM E [facility] FIBRINOGEN ACTIVITY 07/29/2020 12:00:00 AM [facility] Non-covered item or service 07/29/2020 12:00:00 AM [facility] NONSTRESS TEST 07/29/2020 12:00:00 AM [facility] Ultrasonography of Right and Left Heart ULTRASONOGRAPHY OF R IGHT AND LEFT HEART 06/01/2020 12:00:00 AM [facility] Individual Counseling for Substance Abuse Treatment, C ognitive-Behavioral INDIV TELETYPE INSTALLER FOR SUBSTANCE ABUSE, COGNITIVE BEHAVIORAL 05/18/2020 12:00:00 AM [facility] Group Counseling for Substance Abuse Treatment, Motiva tional Enhancement GROUP TELETYPE INSTALLER FOR SUBSTANCE ABUSE, MOTIVATIONAL ENHANCE 05/18/2020 12:00:00 AM [facility] Group Counseling for Substance Abuse Treatment, Spirit ual GROUP COUNSELING FOR SUBSTANCE ABUSE TREATMENT, SPIRITUAL 05/18/2020 12:00:00 AM [facility] Group Counseling for Substance Abuse Treatment, Cognit sergio-Behavioral GROUP TELETYPE INSTALLER FOR SUBSTANCE ABUSE, COGNITIVE BEHAVIORAL 05/18/2020 12:00:00 AM [facility] Results ID Date Data Source [id number] 02/08/2021 07:33:00 AM [facility] DEHYDROGENATION CONVERTER OPERATOR TEST TO BE ORDERED: PAP and HPV (HR )LAST MENSTRUAL PERIOD 01/13/21SOURCE OF SPECIMEN Endo/ExocxCLINICAL FINDINGS normal examCLINICAL DIAGNOSIS Screening, low risk (cx) Name Value Range Interpretation Code Description Data Mónica rce(s) Supporting Document(s) Cytology Order DEHYDROGENATION CONVERTER OPERATOR Pap result LAB SendOut No rmal (applies to non-numeric results) [facility] ID Date Data Source [id number] 02/04/2021 03:03:00 PM [facility] Name Value Range Interpretation Code Description Data Mónica rce(s) Supporting Document(s) HPV Detection,High Risk result Negative N ormal (applies to non-numeric results) [facility] Test Performed By: [facility] [address] [place] [address] Director: Tolu Bradley MD . No E6 or E7 mRNA is detected from HPV types 16,18,31,33,35,39,45,51,52,56,58,59,66, and 68 by nucleic acid amplification. ID Date Data Source [id number] 02/04/2021 02:35:00 PM [facility] Name Value Range Interpretation Code Description Data Mónica rce(s) Supporting Document(s) HPV Detection,High Risk Types Negative No rmal (applies to non-numeric results) [facility] Test Performed By: [facility] [address] [place] [address] Director: Tolu Bradley MD . No E6 or E7 mRNA is detected from HPV types 16,18,31,33,35,39,45,51,52,56,58,59,66, and 68 by nucleic acid amplification. ID Date Data Source [id number] 02/07/2021 06:46:00 PM [facility] Name Value Range Interpretation Code Description Data Mónica rce(s) Supporting Document(s) ID Date Data Source [id number] 11/17/2020 01:50:00 PM EDT [facility] ([facility]on [facility]) Name Value Range Interpretation Code Description Data Mónica rce(s) Supporting Document(s) Hepatitis C virus RNA [Units/volume] (vi ral load) in Serum or Plasma by Probe with amplification Laboratory test result Normal (applies t o non-numeric results) [facility] (Peterson Schneider MD) Negative: HCV RNA Not Detected Performed at: [address] [id number] Offset Machine Operator: Maureen San MD, Phone: [phone] ID Date Data Source [id number] 11/17/2020 01:50:00 PM EDT [facility] ([facility]) Name Value Range Interpretation Code Description Data Mónica rce(s) Supporting Document(s) Laboratory test finding (navigational concept) Laboratory test r esult Above high normal [facility] (Peterson Schneider MD) <content>This screening test for Hepatit is C Virus was above the 1.0</content>
<content>cutoff index value and will be sent to reference lab</content>
<content>Laboratory [facility], [address] [place], [place] [address]charissa Peguero,</content>
<content>[place] [address] for Hep C RNA ALEXIS testing to confirm or exclude</content>
<content>active Hepatitis C Virus infection. Screening test Positive</content>
<content>samples with high index values (>11.0) usually (95%) confirm</content>
<content>Positive, but <5 of every 100 samples with this result might</content>
<content>be a false positive and Hep C RNA ALEXIS testing will aid in</content>
<content>patient management.</content>
<content></content> Laboratory test finding (navigational concept) Laboratory test r esult Normal (applies to non-numeric results) MEDENT (Peterson Schneider MD) Laboratory test finding (navigational concept) Laboratory test r esult Normal (applies to non-numeric results) [facility] (Peterson Schneider MD) Laboratory test finding (navigational concept) Laboratory test r esult Normal (applies to non-numeric results) PHUONG (Peterson Schneider MD) ID Date Data Source [id number] 11/17/2020 01:50:00 PM EDT MEDPRASHANT (Peterson Schneider MD) Name Value Range Interpretation Code Description Data Mónica rce(s) Supporting Document(s) Laboratory test finding (navigational concept) 71 mg/dL 7 0-100 Normal (applies to non-numeric results) [facility] (Peterson Schneider MD) Laboratory test finding (navigational concept) 0.79 mg/dL 0 .55-1.30 Normal (applies to non-numeric results) MEDPRASHANT (Peterson Schneider MD) Laboratory test finding (navigational concept) 15 mg/dL 7 -18 Normal (applies to non-numeric results) [facility]PRASHANT (Peterson Schneider MD) Laboratory test finding (navigational concept) Laboratory test r esult Normal (applies to non-numeric results) [facility]PRASH[facility] (Peterson Schneider MD) <content>Units are mL/min/1.73 m2</content>
<content></content>
<content>Chronic Kidney Disease Staging per NKF:</content>
<content></content>
<content>Stage I & II GFR >=60 Normal to Mildly Decreased</content>
<content>Stage III GFR 30- 59 Moderately Decreased</content>
<content>Stage IV GFR 15-29 Severely Decreased</content>
<content>Stage V GFR <15 Very Little GFR Left</content>
<content>ESRD GFR <15 on LIFT SL[employer] OPERATOR</content>
<content></content> Laboratory test finding (navigational concept) 138 meq/L 1 36-145 Normal (applies to non-numeric results) MEDPRASHANT (Peterson Schneider MD) Laboratory test finding (navigational concept) 105 meq/L 9 8-107 Normal (applies to non-numeric results) PHUONG (Peterson Schneider MD) Laboratory test finding (navigational concept) 4.3 meq/L 3 .5-5.1 Normal (applies to non-numeric results) [facility]ENT (Peterson Schneider MD) Laboratory test finding (navigational concept) 29 meq/L 2 1-32 Normal (applies to non-numeric results) [facility] (Peterson Schneider MD) Laboratory test finding (navigational concept) 9.2 mg/dL 8 .5-10.1 Normal (applies to non-numeric results) [facility] (Peterson Schneider MD) Laboratory test finding (navigational concept) 4 meq/L 8-16 Below low normal [facility] (Peterson Schneider MD) Laboratory test finding (navigational concept) 29 U/L 1 2-78 Normal (applies to non-numeric results) [facility] (Peterson Schneider MD) Laboratory test finding (navigational concept) 25 U/L 7 -37 Normal (applies to non-numeric results) [facility] (Peterson Schneider MD) Laboratory test finding (navigational concept) 0.3 mg/dL 0 .2-1.0 Normal (applies to non-numeric results) [facility] (Peterson Schneider MD) Laboratory test finding (navigational concept) 46 U/L 4 5-117 Normal (applies to non-numeric results) RADHAENT (Peterson Schneider MD) Laboratory test finding (navigational concept) 8.0 GM/DL 6 .4-8.2 Normal (applies to non-numeric results) [facility] (Peterson Schneider MD) Laboratory test finding (navigational concept) 3.8 GM/DL 3 .2-5.2 Normal (applies to non-numeric results) [facility] (Peterson Schneider MD) Laboratory test finding (navigational concept) 0.9 1.2-2.2 Below low normal [facility] (Peterson Schneider MD) ID Date Data Source [id number] 11/17/2020 01:50:00 PM EDT [facility] (Peterson Schneider MD) Name Value Range Interpretation Code Description Data Mónica rce(s) Supporting Document(s) Laboratory test finding (navigational concept) Laboratory test r esult Above high normal [facility] (Peterson Schneider MD) Laboratory test finding (navigational concept) Laboratory test r esult Normal (applies to non-numeric results) [facility] (Peterson Schneider MD) Laboratory test finding (navigational concept) 5.0 units 5 .0-9.0 Normal (applies to non-numeric results) [facility] (Peterson Schneider MD) Laboratory test finding (navigational concept) Laboratory test r esult Normal (applies to non-numeric results) [facility] (Peterson Schneider MD) Laboratory test finding (navigational concept) 1.020 1 .002-1.035 Normal (applies to non-numeric results) [facility] (Peterson Schneider MD) Laboratory test finding (navigational concept) Laboratory test r esult Normal (applies to non-numeric results) [facility] (Peterson Schneider MD) Laboratory test finding (navigational concept) Laboratory test r esult Normal (applies to non-numeric results) [facility] (Peterson Schneider MD) Laboratory test finding (navigational concept) Laboratory test r esult Normal (applies to non-numeric results) [facility] (Peterson Schneider MD) Laboratory test finding (navigational concept) 0.2 mg/dL 0 .0-2.0 Normal (applies to non-numeric results) [facility] (Peterson Schneider MD) Laboratory test finding (navigational concept) Laboratory test r esult Normal (applies to non-numeric results) [facility] (Peterson Schneider MD) Laboratory test finding (navigational concept) Laboratory test r esult Above high normal [facility] (Peterson Schneider MD) Laboratory test finding (navigational concept) Laboratory test r esult Normal (applies to non-numeric results) [facility] (Peterson Schneider MD) Laboratory test finding (navigational concept) 31 /HPF 0-3 Above high normal [facility] (Peterson Schneider MD) Laboratory test finding (navigational concept) 3 /HPF 0 -3 Normal (applies to non-numeric results) [facility] (Peterson Schneider MD) Laboratory test finding (navigational concept) Laboratory test r esult Above high normal [facility] (Peterson Schneider MD) Laboratory test finding (navigational concept) Laboratory test r esult Normal (applies to non-numeric results) [facility] (Peterson Schneider MD) Laboratory test finding (navigational concept) 7 /HPF 0 -6 Normal (applies to non-numeric results) [facility] (Peterson Schneider MD) Laboratory test finding (navigational concept) 0 /LPF 0 -1 Normal (applies to non-numeric results) [facility] (Peterson Schneider MD) ID Date Data Source [id number] 11/17/2020 01:50:00 PM EDT [facility] (Peterson Schneider MD) Name Value Range Interpretation Code Description Data Mónica rce(s) Supporting Document(s) Laboratory test finding (navigational concept) 7.9 10 4 .0-10.0 Normal (applies to non-numeric results) [facility] (Peterson Schneider MD) Laboratory test finding (navigational concept) 4.98 10 4 .00-5.40 Normal (applies to non-numeric results) [facility] (Peterson Schneider MD) Laboratory test finding (navigational concept) 13.6 g/dL 1 2.0-15.5 Normal (applies to non-numeric results) [facility] (Peterson Schneider MD) Laboratory test finding (navigational concept) 43.8 % 3 6.0-47.0 Normal (applies to non-numeric results) [facility] (Peterson Schneider MD) Laboratory test finding (navigational concept) 88.0 fl 8 0.0-96.0 Normal (applies to non-numeric results) [facility] (Peterson Schneider MD) Laboratory test finding (navigational concept) 27.3 pg 2 7.0-33.0 Normal (applies to non-numeric results) [facility] (Peterson Schneider MD) Laboratory test finding (navigational concept) 31.1 g/dL 3 2.0-36.5 Below low normal [facility] (Peterson Schneider MD) Laboratory test finding (navigational concept) 16.8 % 1 1.5-14.5 Above high normal [facility] (Peterson Schneider MD) Laboratory test finding (navigational concept) 294 10 1 50-450 Normal (applies to non-numeric results) [facility] (Peterson Schneider MD) Laboratory test finding (navigational concept) 57.3 % 3 6.0-66.0 Normal (applies to non-numeric results) [facility] (Peterson Schneider MD) Laboratory test finding (navigational concept) 35.9 % 2 4.0-44.0 Normal (applies to non-numeric results) [facility] (Peterson Schneider MD) Laboratory test finding (navigational concept) 4.1 % 2 .0-8.0 Normal (applies to non-numeric results) [facility] (Peterson Schneider MD) Laboratory test finding (navigational concept) 0.5 % 0 .0-1.0 Normal (applies to non-numeric results) [facility] (Peterson Schneider MD) Laboratory test finding (navigational concept) 1.9 % 0 .0-3.0 Normal (applies to non-numeric results) [facility] (Peterson Schneider MD) Laboratory test finding (navigational concept) 0.3 % 0 -3.0 Normal (applies to non-numeric results) [facility] (Peterson Schneider MD) Laboratory test finding (navigational concept) 0.0 % 0 -0 Normal (applies to non- numeric results) [facility] (Peterson Schneider MD) Laboratory test finding (navigational concept) 4.5 10 1 .5-8.5 Normal (applies to non-numeric results) [facility] (Peterson Schneider MD) Laboratory test finding (navigational concept) 0.3 10 0 .0-0.8 Normal (applies to non-numeric results) [facility] (Peterson Schneider MD) Laboratory test finding (navigational concept) 2.8 10 1 .5-5.0 Normal (applies to non-numeric results) [facility] (Peterson Schneider MD) Laboratory test finding (navigational concept) 0.0 10 0 .0-0.2 Normal (applies to non-numeric results) [facility] (Peterson Schneider MD) Laboratory test finding (navigational concept) 0.2 10 0 .0-0.5 Normal (applies to non-numeric results) PHUONG (Peterson Schneider MD) ID Date Data Source [id number] 10/13/2020 07:21:00 AM EDT [facility] Name Value Range Interpretation Code Description Data Mónica rce(s) Supporting Document(s) White Blood Count 4.8-10.8 Normal (applies to non-numeri c results) [facility] Red Blood Count 3.68-5.22 Below low normal [facility] Hemoglobin 11.2-15.7 Below low normal [facility] Hematocrit 34.1-44.9 Below low normal [facility] Mean Corpuscular Volume 81-99 Normal (applies to non- numeric results) [facility] Mean Corpuscular Hemoglobin 27.0-33.0 Normal (appli es to non-numeric results) [facility] Mean Corpuscular HGB Conc 32.0-36.0 Normal (applies to no n-numeric results) [facility] Red Cell Distribution Width 11.5-14.5 Above high normal [facility] Platelet Count 319 X10 3/uL 130-450 Normal (applies to non-numeric results) [facility] Mean Platelet Volume 9.5-12.7 Normal (applies to non-num vicente results) [facility] Imm Grans% (AUTO) 1 % 0-2 Normal (applies to non-numeri c results) [facility] Neutrophils % (AUTO) 64 % 40-75 Normal (applies to non-num vicente results) [facility] Lymphocytes % (AUTO) 31 % 21-46 Normal (applies to non-num vicente results) [facility] Monocytes % (AUTO) 2 % 5-12 Below low normal [facility] Eosinophils % (AUTO) 2 % 1-5 Normal (applies to non-num vicente results) [facility] Basophils % (AUTO) 0 % 0-1 Normal (applies to non-numer ic results) [facility] Imm Grans# (AUTO) 0.0-0.5 Normal (applies to non-numeri c results) [facility] Neutrophils # (AUTO) 1.5-8.1 Normal (applies to non-num vicente results) [facility] Lymphocytes # (AUTO) 1.0-3.1 Normal (applies to non-num vicente results) [facility] Monocytes # (AUTO) 0.2-1.3 Normal (applies to non-numer ic results) [facility] Eosinophils# (AUTO) 0.0-0.5 Normal (applies to non-nume kolton results) [facility] Basophils # (AUTO) 0.0-0.1 Normal (applies to non-numer ic results) [facility] ID Date Data Source [id number] 10/12/2020 07:59:00 AM EDT [facility] Name Value Range Interpretation Code Description Data Mónica rce(s) Supporting Document(s) White Blood Count 4.8-10.8 Above high normal [facility] Red Blood Count 3.68-5.22 Below low normal [facility] Hemoglobin 11.2-15.7 Below low normal [facility] Hematocrit 34.1-44.9 Below low normal [facility] Mean Corpuscular Volume 81-99 Normal (applies to non- numeric results) [facility] Mean Corpuscular Hemoglobin 27.0-33.0 Normal (appli es to non-numeric results) [facility] Mean Corpuscular HGB Conc 32.0-36.0 Normal (applies to no n-numeric results) [facility] Red Cell Distribution Width 11.5-14.5 Above high normal [facility] Platelet Count 328 X10 3/uL 130-450 Normal (applies to non-numeric results) [facility] Mean Platelet Volume 9.5-12.7 Normal (applies to non-num vicente results) [facility] Imm Grans% (AUTO) 1 % 0-2 Normal (applies to non-numeri c results) [facility] Neutrophils % (AUTO) 77 % 40-75 Above high normal [facility] Lymphocytes % (AUTO) 20 % 21-46 Below low normal [facility] Monocytes % (AUTO) 2 % 5-12 Below low normal [facility] Eosinophils % (AUTO) 0 % 1-5 Below low normal [facility] Basophils % (AUTO) 0 % 0-1 Normal (applies to non-numer ic results) [facility] Imm Grans# (AUTO) 0.0-0.5 Normal (applies to non-numeri c results) [facility] Neutrophils # (AUTO) 1.5-8.1 Above high normal [facility] Lymphocytes # (AUTO) 1.0-3.1 Normal (applies to non-num vicente results) [facility] Monocytes # (AUTO) 0.2-1.3 Normal (applies to non-numer ic results) [facility] Eosinophils# (AUTO) 0.0-0.5 Normal (applies to non-nume kolton results) [facility] Basophils # (AUTO) 0.0-0.1 Normal (applies to non-numer ic results) [facility] ID Date Data Source [id number] 10/11/2020 07:27:00 PM EDT [facility] Collected By: Nurse Initials: EB Time Collected: 1510 Reference Range: MRSA target DNA not detected, presumed not MRSA colonizedNot detected Name Value Range Interpretation Code Description Data Mónica rce(s) Supporting Document(s) ID Date Data Source [id number] 10/13/2020 02:53:00 PM EDT [facility] Name Value Range Interpretation Code Description Data Mónica rce(s) Supporting Document(s) ID Date Data Source [id number] 10/15/2020 08:12:00 AM EDT [facility] Name Value Range Interpretation Code Description Data Mónica rce(s) Supporting Document(s) Buprenorphine+Nor QL,Urine . Very abnormal (appli es to non-numeric units [facility] Confirmation performed by Mass Spectrome try Buprenorphine QL,Ur Confirm . Very abnormal (appl ies to non-numeric units [facility] Buprenorphine Qnt,Ur Confirm 340 ng/mL Cutoff=10 Nor mal (applies to non-numeric results) [facility] Norbuprenorphine QL,Ur Cfm . Very abnormal (appli es to non-numeric units [facility] Norbuprenorphine Qnt,Ur Cfm Cutoff=10 Normal (appli es to non-numeric results) [facility] Performed at: [facility] Lab[address] [id number] Offset Machine Operator: Gavi Sanchez MD, Phone: [phone] ID Date Data Source [id number] 10/13/2020 09:52:00 AM EDT [place] [facility] Name Value Range Interpretation Code Description Data Mónica rce(s) Supporting Document(s) Group B culture [facility] ID Date Data Source [id number] 10/12/2020 04:37:00 PM EDT [place] [facility] Name Value Range Interpretation Code Description Data Mónica rce(s) Supporting Document(s) Lead,Blood (Venous) result <5.0 Normal (applies to n on-numeric results) [facility] ADDITIONAL INFORMATIO N Testing performed by Inductively Coupled Plasma-Mass Spectrometry (ICP-MS). This test was developed and its performance characteristics determined by [facility] in a manner consistent with CLIA requirements. This test has not been cleared or approved by the U.S. Food and Drug Administration. PB Patient Street Normal (applies to non-nume kolton results) [facility] Patient [facility] Normal (applies to non-numeri c results) [facility] Patient State Normal (applies to non-numer ic results) [facility] Patient Zip [address] Normal (applies to non-numeric results) [facility] Patient [facility] Normal (applies to non-nume kol[place] results) [facility] [phone] Normal (applies to non-nume kol[place] results) [facility] Race Normal (applies to non-numeri c results) [facility] Patient Ethnicity Normal (applies to non-n umeric results) [facility] Patient Occupation Normal (applies to non- numeric results) [facility] Patient Employer Normal (applies to non-nu meric results) [facility] Name,First Normal (applies to non -numeric results) [facility] Guardian Name,Last Normal (applies to non- numeric results) [facility] Name Normal (applies to non-numer ic results) [facility] Provider Street Normal (applies to non-num vicente results) [facility] PBDV Provider City Normal (applies to non-numer ic results) [facility] PBDV Provider State Normal (applies to non-nume [place] results) [facility] PBDV Provider Zip [address] Normal (applies to non-numeri c results) [facility] PBDV Provider Phone [phone] Normal (applies to non-num vicente results) [facility] Phone [phone] Normal (applies to non-numeric results) [facility] Test Performed by: [facility] [address] [place] [address] Offset Machine Operator: Pedro Burns M.D. Ph.D.; CLIA# [id number] ID Date Data Source [id number] 10/11/2020 02:07:00 PM EDT [facility] Name Value Range Interpretation Code Description Data Mónica rce(s) Supporting Document(s) Bupren Scrn,Ur wRfx LCI SO res Negative [facility] Therapeutic Drug Threshold for Buprenorp avis: 5 ng/mL All positive findings are presumptive and unconfirmed. Confirmation of positive Buprenorphine is automatically reflexed and sent to reference laboratory. Unconfirmed results must not be used for non-medical purposes (i.e. pre-employment and legal purposes) ID Date Data Source [id number] 10/11/2020 11:16:00 AM EDT [facility] Name Value Range Interpretation Code Description Data Mónica rce(s) Supporting Document(s) BLOOD TYPE PATIENT O Positive Normal (applies to non-numer ic results) [facility] ANTIBODY SCREEN NEGATIVE Normal (applies to non-numeric results) [facility] ID Date Data Source [id number] 10/11/2020 10:24:00 AM EDT [facility] Name Value Range Interpretation Code Description Data Mónica rce(s) Supporting Document(s) Opiate Screen,Urine Negative Normal (applies to non-nume kolton results) [facility] Barbiturate Screen,Urine Negative Normal (applies to non -numeric results) [facility] Benzodiazepines Scrn,Ur result Negative N ormal (applies to non-numeric results) [facility] Cocaine Screen,Urine Negative [facility] Cannabinoid Screen, Ur Negative Normal (applies to non-n umeric results) [facility] Therapeutic Drug Ranges for Emergency an d Rehabilitation Threshold Levels (ng/mL) Cocaine 300 Opiates 300 Cannabinoids 50 Barbiturates 200 Benzodiazepine 200 Methadone 300 Amphetamines 1000 All positive findings are presumptive and unconfirmed. Confirmation of positive results are performed only at request of provider. Unconfirmed results must not be used for non-medical purposes (i.e. pre-employment and legal purposes) ID Date Data Source [id number] 10/11/2020 10:19:00 AM EDT [facility] Name Value Range Interpretation Code Description Data Mónica rce(s) Supporting Document(s) Color,Urine Yellow [facility] pital Clarity,Urine Clear Normal (applies to non-numeric re sults) [facility] Specific [place],Urine 1.001-1.030 Normal (applies to non- numeric results) [facility] PH,Urine 5.0-8.0 Normal (applies to non-numeric resul ts) [facility] Protein,Urine Negative [facility] ospital Glucose,Urine (UA) Negative Normal (applies to non-numer ic results) [facility] Ketones,Urine Negative [facility] ospital Blood,Urine Negative Normal (applies to non-numeric resu lts) [facility] Bilirubin,Urine Negative [facility] Positive Bilirubin is no longer doublech ecked. Bilirubin may be elevated due to urine color interference. Urobilinogen,Urine Norm 0.2-1 Normal (applies to non-numer ic results) [facility] Leukocyte Esterase,Urine Negative [facility] Nitrite,Urine Negative Normal (applies to non-numeric re sults) [facility] ID Date Data Source [id number] 10/11/2020 10:19:00 AM EDT [facility] Name Value Range Interpretation Code Description Data Mónica rce(s) Supporting Document(s) WBC,URINE 0-10 Normal (applies to non-numeric resul ts) [facility] RBC,Urine 0-2 Normal (applies to non-numeric resul ts) [facility] Hyaline Casts,Ur None Seen Normal (applies to non-numeric results) [facility] Bacteria,Urine None Seen Normal (applies to non-numeric r esults) [facility] Epithelial Cell,Ur None-Few Normal (applies to non-numer ic results) [facility] Renal Tubular Cell, Ur None Seen [facility] ID Date Data Source [id number] 10/13/2020 07:54:00 PM EDT [facility] Name Value Range Interpretation Code Description Data Mónica rce(s) Supporting Document(s) Varicella-Zoster IgG,S result Normal (applies t o non-numeric results) [facility] Results suggest response to immunization or prior exposure to the virus. REFERENCE VALUE Vaccinated: Positive (>=1.1 AI) Unvaccinated: Negative (<=0.8 AI) Varicella-Zoster IgG,S Index Normal (applies to non-numeric results) [facility] Test Performed by: [place] [address] Offset Machine Operator: Pedro Burns M.D. Ph.D.; CLIA# [id number] Varicella-Zoster IgM,S result Negative No rmal (applies to non-numeric results) [facility] ID Date Data Source [id number] 10/11/2020 04:51:00 PM EDT [facility] Name Value Range Interpretation Code Description Data Mónica rce(s) Supporting Document(s) HIV 1/2 Ab p24 Ag Screen Nonreactive Normal (applies to non-numeric results) [facility] ID Date Data Source [id number] 10/11/2020 10:20:00 AM EDT [facility] Interpretation of Result s Less than 5.0 IU/mL - Negative for IgG antibodies to Rubella virus 5.0 - 9.9 IU/mL - Equivocal. Suggest repeat testing on new sample 10.0 IU/mL or greater - Positive for IgG antibodies to Rubella virus Name Value Range Interpretation Code Description Data Mónica rce(s) Supporting Document(s) Hep C Ab-T Test Nonreactive [facility] Specimen sent to Reference Lab for confi rmation of result. Separate report to follow. ID Date Data Source [id number] 10/11/2020 10:20:00 AM EDT [facility] Interpretation of Result s Less than 5.0 IU/mL - Negative for IgG antibodies to Rubella virus 5.0 - 9.9 IU/mL - Equivocal. Suggest repeat testing on new sample 10.0 IU/mL or greater - Positive for IgG antibodies to Rubella virus Name Value Range Interpretation Code Description Data Mónica rce(s) Supporting Document(s) ID Date Data Source [id number] 10/11/2020 10:20:00 AM EDT [facility] Interpretation of Result s Less than 5.0 IU/mL - Negative for IgG antibodies to Rubella virus 5.0 - 9.9 IU/mL - Equivocal. Suggest repeat testing on new sample 10.0 IU/mL or greater - Positive for IgG antibodies to Rubella virus Name Value Range Interpretation Code Description Data Mónica rce(s) Supporting Document(s) ID Date Data Source [id number] 10/11/2020 10:12:00 AM T [facility] Name Value Range Interpretation Code Description Data Mónica rce(s) Supporting Document(s) Syphilis Serology Nonreactive Normal (applies to non-numer ic results) [facility] ID Date Data Source [id number] 10/11/2020 09:14:00 AM EDT [facility] Name Value Range Interpretation Code Description Data Mónica rce(s) Supporting Document(s) Sodium 138 mmol/L 137-145 Normal (applies to non-numeric resul ts) [facility] Potassium 3.5-5.1 Normal (applies to non-numeric resul ts) [facility] Chloride 105 mmol/L 98-112 Normal (applies to non-numeric resul ts) [facility] Carbon Dioxide CO2 22.0-33.0 Normal (applies to non-numer ic results) [facility] Anion Gap 4.0-11.0 Normal (applies to non-numeric resul ts) [facility] BUN 5 mg/dL 7-17 Below low normal [facility] Creatinine 0.70-1.20 Below low normal [facility] GFR >60 Normal (applies to non-numeric results) [facility] Result based on MDRD formula. Glucose Level 74 mg/dL 74-99 Normal (applies to non-numeric re sults) [facility] The reference range is only applicable w hen fasting. Calcium-Uncorrected 8.4-10.2 Normal (applies to non-nume kolton results) [facility] Corrected Calcium 8.4-10.2 Normal (applies to non-numeri c results) [facility] Bilirubin,Total 0.2-1.3 Normal (applies to non-numeric results) [facility] SGOT(AST) 21 U/L 14-36 Normal (applies to non-numeric resul ts) [facility] SGPT(ALT) 11 U/L 9-52 Normal (applies to non-numeric resul ts) [facility] Alkaline Phosphatase 132 U/L 38-126 Above high normal [facility] can increase Alkaline Phosp le vels up to 2 times the normal adult value. Normal values for children and adolescents are 2 to 3 times the normal adult value. Total Protein 6.3-8.2 Below low normal [facility] Albumin 3.5-5.0 Below low normal [facility] ID Date Data Source [id number] 10/11/2020 09:14:00 AM EDT [facility] Name Value Range Interpretation Code Description Data Mónica rce(s) Supporting Document(s) Thyroid Stimulate Hormone TSH 0.358-3.740 No rmal (applies to non-numeric results) [facility] ID Date Data Source [id number] 10/11/2020 08:56:00 AM EDT [facility] Name Value Range Interpretation Code Description Data Mónica rce(s) Supporting Document(s) White Blood Count 4.8-10.8 Above high normal [facility] Red Blood Count 3.68-5.22 Below low normal [facility] Hemoglobin 11.2-15.7 Below low normal [facility] Hematocrit 34.1-44.9 Below low normal [facility] Mean Corpuscular Volume 81-99 Normal (applies to non- numeric results) [facility] Mean Corpuscular Hemoglobin 27.0-33.0 Normal (appli es to non-numeric results) [facility] Mean Corpuscular HGB Conc 32.0-36.0 Normal (applies to no n-numeric results) [facility] Red Cell Distribution Width 11.5-14.5 Above high normal [facility] Platelet Count 310 X10 3/uL 130-450 Normal (applies to non-numeric results) [facility] Mean Platelet Volume 9.5-12.7 Normal (applies to non-num vicente results) [facility] Imm Grans% (AUTO) 0 % 0-2 Normal (applies to non-numeri c results) [facility] Neutrophils % (AUTO) 90 % 40-75 Above high normal [facility] Lymphocytes % (AUTO) 8 % 21-46 Below low normal [facility] Monocytes % (AUTO) 2 % 5-12 Below low normal [facility] Eosinophils % (AUTO) 0 % 1-5 Below low normal [facility] Basophils % (AUTO) 0 % 0-1 Normal (applies to non-numer ic results) [facility] Imm Grans# (AUTO) 0.0-0.5 Normal (applies to non-numeri c results) [facility] Neutrophils # (AUTO) 1.5-8.1 Above high normal [facility] Lymphocytes # (AUTO) 1.0-3.1 Normal (applies to non-num vicente results) [facility] Monocytes # (AUTO) 0.2-1.3 Normal (applies to non-numer ic results) [facility] Eosinophils# (AUTO) 0.0-0.5 Normal (applies to non-nume kolton results) [facility] Basophils # (AUTO) 0.0-0.1 Normal (applies to non-numer ic results) [facility] ID Date Data Source [id number] 10/11/2020 07:10:00 AM EDT [facility] Name Value Range Interpretation Code Description Data Mónica rce(s) Supporting Document(s) Respiratory specimen severe acute respir atory syndrome coronavirus 2 (SARS-CoV-2) RNA Negative (qualifier value) [facility] This lab was ordered by [facility] kylah and reported by [facility]. ID Date Data Source [id number] 10/11/2020 09:10:00 AM EDT [facility] Negative results should be treated as pr esumptive and, if inconsistent with clinical signs and symptoms or necessary for patient management, should be tested with different authorized or cleared molecular tests. Negative results do not preclude SARS-CoV-2 infection and should not be used as the sole basis for patient management decisions. Negative results should be considered in the context of a patients recent exposures, history and the presence of clinical signs and symptoms consistent with COVID-19. This test has not been FDA cleared or approved; this test has been authorized by FDA under an Emergency Use Authorization for use by laboratories certified under the Clinical Laboratory Improvement Amendments of 1988 (CLIA), 42 U.S.C. 263a, to perform moderate complexity/high complexity tests and at the Point of Care (POC), i.e., in patient care settings operating under a CLIA Certificate of Waiver, Certificate of Compliance, or Certificate of Accreditation. Factsheets for healthcare providers: https://www.fda.gov/media/579296/download Factsheets for patients: https://www.fda.gov/media/425004/download The ID NOW Instrument is a rapid molecular in vitro diagnostic test utilizing an isothermal nucleic acid amplification technology intended for the qualitative detection of nucleic acid from the SARS-CoV-2 viral RNA. THIS IS A STATE REPORTABLE COMMUNICABLE DISEASE. Manual entry verified by Nahum Bowens 10/11/20 0910 Test Performed By: [facility] [address] [place] [address] Director: Tolu Bradley MD Name Value Range Interpretation Code Description Data Mónica rce(s) Supporting Document(s) ID Date Data Source [id number] 10/14/2020 09:31:00 AM EDT [facility] Name Value Range Interpretation Code Description Data Mónica rce(s) Supporting Document(s) HCV RNA Detect/Quant,S result Undetected No rmal (applies to non-numeric results) [facility] Result in log IU/mL is Undetected. ---- ADDITIONAL INFORMATION The quantification range of this assay is 15 to 100,000,000 IU/mL (1.18 log to 8.00 log IU/mL). Testing was performed using the missy HCV test ([employer] with the missy Playful Data0 System. Test Performed by: [facility] [address] [place] [address] Offset Machine Operator: Pedro Burns M.D. Ph.D.; CLIA# [id number] ID Date Data Source [id number] 09/22/2020 04:17:00 PM EDT [facility] Name Value Range Interpretation Code Description Data Mónica rce(s) Supporting Document(s) UDS10 Note . Normal (applies to non-numeric resul ts) [facility] This assay provides a preliminary unconf irmed analytical test result that may be suitable for clinical management of patients in certain situations. Drug- test results should be interpreted in the context of clinical information. Patient metabolic variables, specific drug chemistry, and specimen characteristics can affect test outcome. Technical consultation is available if a test result is inconsistent with an expected outcome. (email- [email or web address] or call toll-free [phone]) Performed at: [facility] [employer] [id number] Offset Machine Operator: Gavi Sanchez MD, Phone: [phone] Amphetamines,UDS10 Gxyipe=1980 Normal (applies to non-nume kolton results) [facility] Barbiturates,UDS10 Eyqazi=602 Normal (applies to non-numer ic results) [facility] Benzodiazepines,UDS10 Pnvlbv=668 Normal (applies to non-nu meric results) [facility] Cannabinoid,UDS10 Cutoff=20 Normal (applies to non-numeri c results) [facility] Cocaine,UDS10 Gfzbot=942 Very abnormal (applies to non-num vicente units [facility] Opiates,UDS10 Vrdald=135 Normal (applies to non-numeric re sults) [facility] Opiate test includes Codeine, Morphine, Hydromorphone, Hydrocodone. Oxyco/Oxymorphone,UDS10 Cobpmt=784 Normal (applies to non- numeric results) [facility] Test includes Oxycodone and Oxymorphone Phencyclidine,UDS10 Cutoff=25 Normal (applies to non-nume kolton results) [facility] Methadone,UDS10 Epvwik=559 Normal (applies to non-numeric results) [facility] Propoxyphene,UDS10 Kkfuej=076 Normal (applies to non-numer ic results) [facility] Buprenorphine,UDS10 Cutoff=10 Very abnormal (applies to n on-numeric units [facility] Creatinine,UDS10 20.0-300.0 Normal (applies to non-numeric results) [facility] pH,UDS10 4.5-8.9 Normal (applies to non-numeric resul ts) [facility] ID Date Data Source [id number] 09/22/2020 04:17:00 PM EDT [facility] Name Value Range Interpretation Code Description Data Mónica rce(s) Supporting Document(s) Buprenorphine+Nor QL,Urine . Very abnormal (appli es to non-numeric units [facility] Confirmation performed by Mass Spectrome try Buprenorphine QL,Ur Confirm . Very abnormal (appl ies to non-numeric units [facility] Buprenorphine Qnt,Ur Confirm 18 ng/mL Cutoff=10 Nor mal (applies to non-numeric results) [facility] Norbuprenorphine QL,Ur Cfm . Very abnormal (appli es to non-numeric units [facility] Norbuprenorphine Qnt,Ur Cfm 213 ng/mL Cutoff=10 Norm al (applies to non-numeric results) [facility] Performed at: [address] [id number] Offset Machine Operator: Gavi Sanchez MD, Phone: [phone] ID Date Data Source [id number] 09/15/2020 02:10:00 PM EDT [facility] Name Value Range Interpretation Code Description Data Mónica rce(s) Supporting Document(s) Bupren Scrn,Ur wRfx LCI SO res Negative [facility] Therapeutic Drug Threshold for Buprenorp avis: 5 ng/mL All positive findings are presumptive and unconfirmed. Confirmation of positive Buprenorphine is automatically reflexed and sent to reference laboratory. Unconfirmed results must not be used for non-medical purposes (i.e. pre-employment and legal purposes) ID Date Data Source [id number] 09/09/2020 11:41:00 PM EDT [facility] Name Value Range Interpretation Code Description Data Mónica rce(s) Supporting Document(s) Amphetamines,UDS9 Kfmcjx=5568 Normal (applies to non-numer ic results) [facility] Amphetamine test includes Amphetamine an d Methamphetamine. Barbiturates,UDS9 Opmdvm=652 Normal (applies to non-numeri c results) [facility] Benzodiazepines,UDS9 Ofddbx=108 Normal (applies to non-num vicente results) [facility] Cannabinoid,UDS9 Cutoff=50 Normal (applies to non-numeric results) [facility] Cocaine,UDS9 Jvhsai=377 Very abnormal (applies to non-nume kolton units [facility] Benzoylecgonine GC/MS Con >3000 ng/mL Rxxhxz=345 01 Opiates,UDS9 Sdsvac=070 Normal (applies to non-numeric res ults) [facility] Opiate test includes Codeine and Morphin e only. Phencyclidine,UDS9 Cutoff=25 Normal (applies to non-numer ic results) [facility] Methadone,UDS9 Cxgdvl=174 Normal (applies to non-numeric r esults) [facility] Propoxyphene,UDS9 Pneisw=008 Normal (applies to non-numeri c results) [facility] Performed at: RN - [facility] [address] [id number] Offset Machine Operator: Gavi Sanchez MD, Phone: [phone] ID Date Data Source [id number] 07/31/2020 12:38:00 PM EDT [facility] Name: AUGUSTO RIVERA Salome : Age/Sex: 29F Ordering Provider: Manny Hines MD Med Rec #: [id number] Reg Status: DIS IN Room #: 360-2 Date of Service: 07/30/20 Report Number: [id number] cc:Manny Hines MD; Rachelle Dunlap MD Send Report To: [id number] US/US Bio-Physical Profile Reason for exam: bleeding, h/o placental abruption last FINDINGS: EARLIEST ULT: 25w 4d = EDC 11/07/2020 EGA = 25 wks 5 days GESTATION: Single PRESENTATION: Breech CERVICAL LENGTH: Closed 40 mm. FHR: 149 bpm PLACENTAL LOCATION: Anterior, grade 2. ANAND: 18 cm. MVP: 6.8 cm. BIOPHYSICAL PROFILE: movements: 2 out of 2 breathin out of 2 tone: 2 out of 2 Amniotic fluid: 2 out of 2 TOTAL 6 out of 8 IMPRESSION: Viable IUP in breech presentation. Expected age 25 weeks 5 days. EDC 11/07/2020. Biophysical profile score 6/8. 0 for breathing. FHR 149 bpm. Cervix closed. ANAND 18 cm. REPORT SIGNATURE ON FILE Reported By: Nahum Murrell DO <Electronically signed by Nahum Murrell DO> 08/05/20 1109 Dictation Date/Time: 07/30/20 1514 Transcribed Date/Time: 07/31/20 1238 Bulldogger: EDUARD Name Value Range Interpretation Code Description Data Mónica rce(s) Supporting Document(s) ID Date Data Source [id number] 08/02/2020 12:23:00 PM EDT [facility] Name Value Range Interpretation Code Description Data Mónica rce(s) Supporting Document(s) Varicella-Zoster IgG Ab,S res See Note No rmal (applies to non-numeric results) [facility] Presence of detectable Varicella Zoster virus IgG antibodies. Test performed or referred by [facility] [address] [place] [address] ID Date Data Source [id number] 08/02/2020 12:23:00 PM EDT [facility] Name Value Range Interpretation Code Description Data Mónica rce(s) Supporting Document(s) Rubella Antibody,IgM result 0.0-19.9 Normal (appli es to non-numeric results) [facility] Negative <20.0 Equivocal 20.0 - 24.9 Positive >24.9 Performed at: RN - [facility] [address] [id number] Offset Machine Operator: Gavi Sanchez MD, Phone: [phone] ID Date Data Source [id number] 07/29/2020 07:50:00 PM EDT [facility] Name Value Range Interpretation Code Description Data Mónica rce(s) Supporting Document(s) HIV 1/2 Ab p24 Ag Screen Nonreactive Normal (applies to non-numeric results) [facility] ID Date Data Source [id number] 07/29/2020 07:04:00 PM EDT [facility] Name Value Range Interpretation Code Description Data Mónica rce(s) Supporting Document(s) Sodium 139 mmol/L 137-145 Normal (applies to non-numeric resul ts) [facility] Potassium 3.5-5.1 Normal (applies to non-numeric resul ts) [facility] Chloride 106 mmol/L 98-112 Normal (applies to non-numeric resul ts) [facility] Carbon Dioxide CO2 22.0-33.0 Normal (applies to non-numer ic results) [facility] Anion Gap 4.0-11.0 Normal (applies to non-numeric resul ts) [facility] BUN 6 mg/dL 7-17 Below low normal [facility] Creatinine 0.70-1.20 Below low normal [facility] GFR >60 Normal (applies to non-numeric results) [facility] Result based on MDRD formula. Glucose Level 71 mg/dL 74-99 Below low normal [facility] The reference range is only applicable w hen fasting. Calcium-Uncorrected 8.4-10.2 Below low normal [facility] Corrected Calcium 8.4-10.2 Normal (applies to non-numeri c results) [facility] Bilirubin,Total 0.2-1.3 Below low normal [facility] SGOT(AST) 13 U/L 14-36 Below low normal [facility] SGPT(ALT) 14 U/L 9-52 Normal (applies to non-numeric resul ts) [facility] Alkaline Phosphatase 51 U/L 38-126 Normal (applies to non-num vicente results) [facility] can increase Alkaline Phosp le vels up to 2 times the normal adult value. Normal values for children and adolescents are 2 to 3 times the normal adult value. Total Protein 6.3-8.2 Normal (applies to non-numeric re sults) [facility] Albumin 3.5-5.0 Below low normal [facility] ID Date Data Source [id number] 07/29/2020 06:58:00 PM EDT [facility] Name Value Range Interpretation Code Description Data Mónica rce(s) Supporting Document(s) PT 9.4-12.5 Normal (applies to non-numeric results) [facility] INR Normal (applies to non-numeric results) [facility] The use of the INR is restricted to manfred ents on stable oral anticoagulant. Therapeutic Range: 2.0-3.0 High Risk Values: 2.5-3.5 ID Date Data Source [id number] 07/29/2020 06:58:00 PM EDT [facility] Name Value Range Interpretation Code Description Data Mónica rce(s) Supporting Document(s) PTT 25.1-36.5 Normal (applies to non-numeric resul ts) [facility] ID Date Data Source [id number] 07/29/2020 06:58:00 PM EDT [facility] Name Value Range Interpretation Code Description Data Mónica rce(s) Supporting Document(s) Fibrinogen 366 mg/dL 173-454 Normal (applies to non-numeric resul ts) [facility] ID Date Data Source [id number] 07/29/2020 05:58:00 PM EDT [facility] Name Value Range Interpretation Code Description Data Mónica rce(s) Supporting Document(s) Color,Urine Yellow Normal (applies to non-numeric resu lts) [facility] Clarity,Urine Clear Normal (applies to non-numeric re sults) [facility] Specific [place],Urine 1.001-1.030 Normal (applies to non- numeric results) [facility] PH,Urine 5.0-8.0 Normal (applies to non-numeric resul ts) [facility] Protein,Urine Negative Normal (applies to non-numeric re sults) [facility] Glucose,Urine (UA) Negative Normal (applies to non-numer ic results) [facility] Ketones,Urine Negative Normal (applies to non-numeric re sults) [facility] Blood,Urine Negative Normal (applies to non-numeric resu lts) [facility] Bilirubin,Urine Negative Normal (applies to non-numeric results) [facility] Urobilinogen,Urine Norm 0.2-1 Normal (applies to non-numer ic results) [facility] Leukocyte Esterase,Urine Negative Normal (applies to non -numeric results) [facility] Nitrite,Urine Negative [facility] ID Date Data Source [id number] 07/29/2020 05:58:00 PM EDT [facility] Name Value Range Interpretation Code Description Data Mónica rce(s) Supporting Document(s) RBC,Auto Urine 0-2 Normal (applies to non-numeric r esults) [facility] WBC Urine Auto 0-10 Normal (applies to non-numeric r esults) [facility] Casts,Hyaline,Urine Auto 0-2 Normal (applies to non -numeric results) [facility] Bacteria Urine Auto None Seen [facility] Epithelial Cell Ur Auto None-Few Normal (applies to non- numeric results) [facility] ID Date Data Source [id number] 07/29/2020 05:05:00 PM EDT [facility] Name Value Range Interpretation Code Description Data Mónica rce(s) Supporting Document(s) Color,Urine Yellow Normal (applies to non-numeric resu lts) [facility] Clarity,Urine Clear Normal (applies to non-numeric re sults) [facility] Specific [place],Urine 1.001-1.030 Normal (applies to non- numeric results) [facility] PH,Urine 5.0-8.0 Normal (applies to non-numeric resul ts) [facility] Protein,Urine Negative Normal (applies to non-numeric re sults) [facility] Glucose,Urine (UA) Negative Normal (applies to non-numer ic results) [facility] Ketones,Urine Negative Normal (applies to non-numeric re sults) [facility] Blood,Urine Negative [facility] pital Bilirubin,Urine Negative Normal (applies to non-numeric results) [facility] Urobilinogen,Urine Norm 0.2-1 Normal (applies to non-numer ic results) [facility] Leukocyte Esterase,Urine Negative [facility] Nitrite,Urine Negative Normal (applies to non-numeric re sults) [facility] ID Date Data Source [id number] 07/29/2020 05:05:00 PM EDT [facility] Name Value Range Interpretation Code Description Data [facility] rce(s) Supporting Document(s) RBC,Auto Urine 0-2 [facility] WBC Urine Auto 0-10 Normal (applies to non-numeric r esults) [facility] Casts,Hyaline,Urine Auto 0-2 Normal (applies to non -numeric results) [facility] Bacteria Urine Auto None Seen [facility] Epithelial Cell Ur Auto None-Few Normal (applies to non- numeric results) [facility] ID Date Data Source [id number] 07/29/2020 04:57:00 PM EDT [facility] Name Value Range Interpretation Code Description Data Mónica rce(s) Supporting Document(s) Opiate Screen,Urine Negative Normal (applies to non-nume kolton results) [facility] Barbiturate Screen,Urine Negative Normal (applies to non -numeric results) [facility] Benzodiazepines Scrn,Ur result Negative N ormal (applies to non-numeric results) [facility] Cocaine Screen,Urine Negative Normal (applies to non-num vicente results) [facility] Cannabinoid Screen, Ur Negative Normal (applies to non-n umeric results) [facility] Therapeutic Drug Ranges for Emergency an d Rehabilitation Threshold Levels (ng/mL) Cocaine 300 Opiates 300 Cannabinoids 50 Barbiturates 200 Benzodiazepine 200 Methadone 300 Amphetamines 1000 All positive findings are presumptive and unconfirmed. Confirmation of positive results are performed only at request of provider. Unconfirmed results must not be used for non-medical purposes (i.e. pre-employment and legal purposes) ID Date Data Source [id number] 07/30/2020 05:38:00 AM EDT [facility] Name: AUGUSTO RIVERA : Age/Sex: 29F Ordering Provider: Bran Montes MD Med Rec #: [id number] Reg Status: DIS IN Room #: 360-2 Date of Service: 07/29/20 Report Number: [id number] cc:Rachelle Dunlap MD; Bran Montes MD Send Report To: ADDENDUM The placenta is anterior grade 2. There are placental lakes identified on the aspect of the placenta. No previa or abruption. ADDENDUM SIGNATURE ON FILE Reported By: Nahum Murrell DO <Electronically signed by Nahum Murrell DO> 08/02/20 1141 Dictation Date/Time: 07/30/20 2373 Transcribed Date/Time: 07/31/20 1246 Bulldogger: ADRIAN [id number] US/US Bio-Physical Profile Reason for exam: wellbeing FINDINGS: EARLIEST ULT: Today, prior [facility] = EDC 8/15/21 EGA = 25 wks 4 days GESTATION: Single. PRESENTATION: Breech. CERVICAL LENGTH: 30.1 mm FHR: 149 bpm PLACENTAL LOCATION: Anterior, no previa. INSERTION: Central. ANAND: 18.46 cm, MVP 6.32 cm BIOPHYSICAL PROFILE: movements: 2 out of 2 breathin out of 2 tone: 2 out of 2 Amniotic fluid: 2 out of 2 TOTAL 6 out of 8 IMPRESSION: Biophysical profile score 6/8. Anterior placenta without evidence of previa. REPORT SIGNATURE ON FILE Reported By: Eagle De La Torre MD <Electronically signed by Eagle De La Torre MD> 07/30/20 1403 Dictation Date/Time: 07/29/20 1705 Transcribed Date/Time: 07/30/20 0514 Bulldogger: CARMELITA Name Value Range Interpretation Code Description Data Mónica rce(s) Supporting Document(s) ID Date Data Source [id number] 07/29/2020 01:04:00 PM EDT [facility] Name Value Range Interpretation Code Description Data Mónica rce(s) Supporting Document(s) SARS-CoV-2 (COVID-19) RNA [Presence] in Respiratory specimen by ALEXIS with probe detection Negative; No COVID-2 RNA detected by PCR. [facility] This lab was ordered by [facility] and reported by . ID Date Data Source [id number] 06/17/2020 04:20:00 AM EDT [facility]. OB ULTRASOUNDComparison is made to .The patient's last menstrual period was 02/01/20 which corresponds to anEGA of 19 weeks 3 days with an EDC of 11/07/20.A single fetus is identified in the breech position. The placenta isanterior without evidence of previa. No areas of hemorrhage areidentified. The cervical length is about 4.2 cm. heart motion isdetected at a rate of 144 bpm. The amniotic fluid index is 22 cm. Thecerebellum measures 1.7 cm; cisterna magna 0.4 cm; nuchal folds 0.2 cm;lateral ventricle 0.7 cm.For the anatomical survey, images provided of the intracranial contents,midline face with the nose/lips, orbits, palette, stomach, kidneys, spine, diaphragm, mandible, left/right ventricular outflow tracts, urinarybladder, three-vessel cord, cord insertion, four-chamber heart, septum,profile appear unremarkable. The left forearm is not clearly seen andcan be followed up. The remainder of the extremities appearunremarkable. The sex of the fetus appears to be female. biometrics are as follows: BPD 4.4 cm, 19 weeks 3 days; HC 16.7 cm, 19 weeks 3 days; AC 13.7 cm, 19 weeks 1 day; FL 2.9 cm, 18 weeks 6 days; HC/AC ratio 1.22 (1.09-1.26); CI 78 (70-86); EFW 271 grams +/- 40 gramswhich is at the 25th percentile. The overall sonographic EGA for thecurrent exam is 19 weeks 2 days with an EDC of 11/08/20.For the bio physical profile, a score was given for breathing,movement, tone and amniotic fluid for a total score of 8 out of 8.IMPRESSION: LIVE, SINGLE INTRAUTERINE GESTATION IN THE BREECH POSITION.SONOGRAPHIC EGA OF 19 WEEKS 2 DAYS. ESTIMATED WEIGHT 271 GRAMS ATTHE 25TH PERCENTILE. AMNIOTIC FLUID INDEX 22 CM. THE LEFT FOREARM ISNOT CLEARLY SEEN AND CAN BE FOLLOWED-UP. THE REMAINDER OF THE FETALANATOMY IS UNREMARKABLE.Dictated on 06/17/20 0420 by Henrry Borrego M.D.Transcribed on 06/18/20 0845 by Balwinder Pelayo by Henrry Borrego M.D. on 06/18/20 0942Sign by: Henrry Borrego M.D. Name Value Range Interpretation Code Description Data Mónica rce(s) Supporting Document(s) ID Date Data Source [id number] 06/12/2020 12:03:00 PM EDT [facility] Name Value Range Interpretation Code Description Data Mónica rce(s) Supporting Document(s) Opiate Screen,Urine Negative Normal (applies to non-nume kolton results) [facility] Amphetamine Screen,Urine Negative Normal (applies to non -numeric results) [facility] Benzodiazepines Scrn,Ur result Negative N ormal (applies to non-numeric results) [facility] Cocaine Screen,Urine Negative Normal (applies to non-num vicente results) [facility] Methadone Screen,Urine Negative Normal (applies to non-n umeric results) [facility] Cannabinoid Screen, Ur Negative Normal (applies to non-n umeric results) [facility] Therapeutic Drug Ranges for Emergency an d Rehabilitation Threshold Levels (ng/mL) Cocaine 300 Opiates 300 Cannabinoids 50 Barbiturates 200 Benzodiazepine 200 Methadone 300 Amphetamines 1000 All positive findings are presumptive and unconfirmed. Confirmation of positive results are performed only at request of provider. Unconfirmed results must not be used for non-medical purposes (i.e. pre-employment and legal purposes) ID Date Data Source [id number] 06/01/2020 06:00:00 AM EST [facility] Name: AUGUSTO RIVERA : Age/Sex: 29F Ordering Provider: NADINE Cherry Med Rec #: [id number] Reg Status:ADM IN Room #: 153-2 Date of Service: 06/01/20 Report Number: [id number] cc: NADINE Cherry Send Report To: Echocardiogram Complete Ordering Phys: Misael BAR, Accession Number: [id number] Exam Date: 06/01/2020 10:27 Indications: EDEMA BP / Rhythm: Sinus Technical Quality: Fair Contrast: Total Dose (mL): MEASUREMENTS (Male / Female) Normal Values 2D ECHO Measurement LV Diastolic Diameter PLAX 5.5 cm 4.2 - 6.0 / 3.9 - 5.4 cm LV Systolic Diameter PLAX 3.2 cm 2.1 - 4.0 cm IVS Diastolic Thickness 0.61 cm 0.6 - 1.1 / 0.6 - 1.0 cm LVPW Diastolic Thickness 0.99 cm 0.6 - 1.1 / 0.6 - 1.0 LV Relative Wall Thickness 0.29 LVOT Diameter 2.1 cm Aortic Root Diameter 2.7 cm Aortic Root Diameter Index 1.6 cm/m2 LA Systolic Diameter LX 3.6 cm 3.0 - 4.1 / 2.7 - 3.9 cm LA Volume Index 24.5 cm3/m2 16 - 28 cm3/m2 DOPPLER Measurement AV Peak Velocity 125 cm/s AV Peak Gradient 6.3 mmHg LVOT Peak Velocity 92.7 cm/s LVOT Peak Gradient 3.4 mmHg AV Area Cont Eq vti 2.5 cm2 AV Area Cont Eq pk 2.6 cm2 MV Peak Velocity 96.1 cm/s MV Mean Velocity 63.3 cm/s MV Mean Gradient 2 mmHg Mitral E Point Velocity 115 cm/s Mitral A Point Velocity 42 cm/s Mitral E to A Ratio 2.7 MV Area PHT 3.1 cm2 MV Deceleration Time 243 ms PV Peak Velocity 110 cm/s PV Peak Gradient 4.8 mmHg Mitral E to LV E' Lateral Ratio 8.2 LV E' Septal Velocity 12.9 cm/s Mitral E to LV E' Septal Ratio 8.9 FINDINGS Left Ventricle: Normal left ventricular size and systolic function. LVEF 60%. No regional wall motion abnormalities. Right Ventricle: Normal right ventricular size and function. Right Atrium: Normal right atrial size.Normal collapse of IVC Left Atrium: Left atrial size at the upper limits of normal (SANTA 26). Intravenous Agitated Saline: Mitral Valve: Mild mitral regurgitation. Aortic Valve: No aortic stenosis. No aortic regurgitation. Structurally normal trileaflet aortic valve. Tricuspid Valve: Trace tricuspid regurgitation. Suboptimal tricuspid regurgitation jet to estimate pulmonary artery pressure. Pulmonic Valve: Mild pulmonary regurgitation (normal variant). Pericardium: Normal pericardium. No thickening/calcification of the pericardium. Aorta: Normal size aortic root. CONCLUSIONS Normal left ventricular size and systolic function. LVEF 60%. No regional wall motion abnormalities. Mild mitral regurgitation. Left atrial size at the upper limits of normal (SANTA 26). Normal right ventricular size and function. Normal pericardium. No thickening/calcification of the pericardium. REPORT SIGNATURE ON FILE 06/01/20 1521 Reported By: Mehdi Bell MD <Electronically signed by Mehdi Bell MD in OV> Exam Date/Time: 06/01/20 0600 Order #: [id number] Dictation Date/Time: 06/01/20 1027 Transcribed Date/Time: Bulldogger: Name Value Range Interpretation Code Description Data Mónica rce(s) Supporting Document(s) ID Date Data Source [id number] 05/30/2020 09:59:00 AM EST [facility] Name Value Range Interpretation Code Description Data Mónica rce(s) Supporting Document(s) Respiratory specimen severe acute respir atory syndrome coronavirus 2 (SARS-CoV-2) RNA Negative (qualifier value) [facility] This lab was ordered by [facility] kylah and reported by [facility]. ID Date Data Source [id number] 05/30/2020 11:36:00 AM EST [facility] Name Value Range Interpretation Code Description Data Mónica rce(s) Supporting Document(s) SARS-CoV-2 RNA Negative Normal (applies to non-numeric r esults) [facility] Negative results should be treated as pr esumptive and, if inconsistent with clinical signs and symptoms or necessary for patient management, should be tested with different authorized or cleared molecular tests. Negative results do not preclude SARS-CoV-2 infection and should not be used as the sole basis for patient management decisions. Negative results should be considered in the context of a patients recent exposures, history and the presence of clinical signs and symptoms consistent with COVID-19. This test has not been FDA cleared or approved; this test has been authorized by FDA under an Emergency Use Authorization for use by laboratories certified under the Clinical Laboratory Improvement Amendments of 1988 (CLIA), 42 U.S.C. 263a, to perform moderate complexity/high complexity tests and at the Point of Care (POC), i.e., in patient care settings operating under a CLIA Certificate of Waiver, Certificate of Compliance, or Certificate of Accreditation. Factsheets for healthcare providers: https://www.fda.gov/media/140056/download Factsheets for patients: https://www.fda.gov/media/652096/download The ID NOW Instrument is a rapid molecular in vitro diagnostic test utilizing an isothermal nucleic acid amplification technology intended for the qualitative detection of nucleic acid from the SARS-CoV-2 viral RNA. THIS IS A STATE REPORTABLE COMMUNICABLE DISEASE. Manual entry verified by Nahum Bowens 05/30/20 1135 ID Date Data Source [id number] 05/31/2020 08:17:00 AM [facility] Name: AUGUSTO RIVERA : Age/Sex: 29F Ordering Provider: Brionna KAUR [facility] Rec #: [id number] Reg Status: ADM IN Room #: 153-2 Date of Service: 05/30/20 Report Number: [id number] cc:Brionna KAUR Send Report To: [id number] XRP/XR 2nd Toe Lt Reason for exam: pain FINDINGS: No fracture or dislocation. No significant degenerative change. Nonspecific soft tissue swelling. IMPRESSION: Swelling left second toe. No fracture or dislocation. Fluoroscopy time in seconds: 0 Number of Exposures: Time Portable Image Performed: Contrast Agent in ml: Method of Administration: REPORT SIGNATURE ON FILE Reported By: Nahum Murrell DO <Electronically signed by Nahum Murrell DO> 05/31/20 1206 Dictation Date/Time: 05/30/20 1109 Transcribed Date/Time: 05/31/20 0817 Bulldogger: CARMELITA Name Value Range Interpretation Code Description Data Mónica rce(s) Supporting Document(s) ID Date Data Source [id number] 05/26/2020 05:49:00 PM [facility] Name Value Range Interpretation Code Description Data Mónica rce(s) Supporting Document(s) Opiate Screen,Urine Negative Normal (applies to non-nume kolton results) [facility] Amphetamine Screen,Urine Negative Normal (applies to non -numeric results) [facility] Benzodiazepines Scrn,Ur result Negative N ormal (applies to non-numeric results) [facility] Cocaine Screen,Urine Negative Normal (applies to non-num vicente results) [facility] Methadone Screen,Urine Negative Normal (applies to non-n umeric results) [facility] Cannabinoid Screen, Ur Negative Normal (applies to non-n umeric results) [facility] Therapeutic Drug Ranges for Emergency an d Rehabilitation Threshold Levels (ng/mL) Cocaine 300 Opiates 300 Cannabinoids 50 Barbiturates 200 Benzodiazepine 200 Methadone 300 Amphetamines 1000 All positive findings are presumptive and unconfirmed. Confirmation of positive results are performed only at request of provider. Unconfirmed results must not be used for non-medical purposes (i.e. pre-employment and legal purposes) ID Date Data Source [id number] 05/24/2020 10:35:00 AM EST [facility] Name: AUGUSTO RIVERA : Age/Sex: 29F Ordering Provider: NADINE Cherry Med Rec #: [id number] Reg Status: ADM IN Room #: 153-2 Date of Service: 05/24/20 Report Number: [id number] cc:NADINE Cherry Send Report To: [id number] XRP/XR Foot Lt Min. 3 Views Reason for exam: r/o osteomyelitis nonhealing wounds, edema FINDINGS: Normal alignment and position of the bones. No definitive signs of osteomyelitis or any acute abnormalities identified. IMPRESSION: No acute abnormalities. Fluoroscopy time in seconds: 0 Number of Exposures: Time Portable Image Performed: Contrast Agent in ml: Method of Administration: REPORT SIGNATURE ON FILE Reported By: Angel Cote MD <Electronically signed by Liam Cote MD> 05/25/20 1005 Dictation Date/Time: 05/24/20 0933 Transcribed Date/Time: 05/24/20 1035 Bulldogger: CARMELITA Name Value Range Interpretation Code Description Data Mónica rce(s) Supporting Document(s) ID Date Data Source [id number] 07/08/2020 06:13:00 PM EDT [facility] Value Range Interpretation Code Description Data Mónica rce(s) Supporting Document(s) Hepatitis C Antibody Screen Negative Normal (appli es to non-numeric results) [facility] Supplemental testing for HCV RNA is orde red to rule out active HCV infection. Cmkbqt-pg-szhcnq ratio is >=1.00 and <8.00. Test Performed by: [place] [address] Offset Machine Operator: Pedro Burns M.D. Ph.D.; CLIA# [id number] Hep C Virus Qnt (Rfx'd) Undetected Normal (applies to non- numeric results) [facility] Result in log IU/mL is Undetected. ---- ADDITIONAL INFORMATION The quantification range of this assay is 15 to 100,000,000 IU/mL (1.18 log to 8.00 log IU/mL). Testing was performed using the missy HCV test ([employer] with the missy Playful Data[employer] System. Test Performed by: [place] [address] Offset Machine Operator: Pedro Burns M.D. Ph.D.; CLIA# [id number] ID Date Data Source [id number] 07/08/2020 06:13:00 PM EDT [facility] Value Range Interpretation Code Description Data Mónica rce(s) Supporting Document(s) HCV RNA Detect/Quant,S result Normal (applies t o non-numeric results) [facility] ID Date Data Source [id number] 05/19/2020 04:00:00 AM EST [facility] Value Range Interpretation Code Description Data Mónica rce(s) Supporting Document(s) Hep Bs Ag Result T-Test Nonreactive Normal (applies to non -numeric results) [facility] ID Date Data Source [id number] 05/19/2020 04:00:00 AM [facility] Name Value Range Interpretation Code Description Data Mónica rce(s) Supporting Document(s) HAVM Nonreactive Normal (applies to non-numeric resu lts) [facility] ID Date Data Source [id number] 05/19/2020 04:00:00 AM [facility] Value Range Interpretation Code Description Data Mónica rce(s) Supporting Document(s) Vitamin D,Total (25OH) 30.0-100.0 Below low normal [facility] Reference Range: <10 ng/mL: Deficien t 10-30 ng/mL: Insufficient 30-100 ng/mL: Sufficient >100 ng/mL: Toxicity possible ID Date Data Source [id number] 05/19/2020 04:00:00 AM [facility] Value Range Interpretation Code Description Data Mónica rce(s) Supporting Document(s) Syphilis Serology Nonreactive Normal (applies to non-numer ic results) [facility] ID Date Data Source [id number] 05/19/2020 12:52:00 AM [facility] Name Value Range Interpretation Code Description Data Mónica rce(s) Supporting Document(s) Magnesium 1.80-2.40 Normal (applies to non-numeric resul ts) [facility] ID Date Data Source [id number] 05/19/2020 12:52:00 AM [facility] Value Range Interpretation Code Description Data Mónica rce(s) Supporting Document(s) C-Reactive Protein,Wide Range <3.00 Above high normal [facility] ID Date Data Source [id number] 05/19/2020 12:52:00 AM [facility] Name Value Range Interpretation Code Description Data Mónica rce(s) Supporting Document(s) Sodium 139 mmol/L 137-145 Normal (applies to non-numeric resul ts) [facility] Potassium 3.5-5.1 Normal (applies to non-numeric resul ts) [facility] Chloride 104 mmol/L 98-112 Normal (applies to non-numeric resul ts) [facility] Carbon Dioxide CO2 22.0-33.0 Normal (applies to non-numer ic results) [facility] Anion Gap 4.0-11.0 Normal (applies to non-numeric resul ts) [facility] BUN 13 mg/dL 7-17 Normal (applies to non-numeric resul ts) [facility] Creatinine 0.70-1.20 Below low normal [facility] GFR >60 Normal (applies to non-numeric results) [facility] Result based on MDRD formula. Glucose Level 93 mg/dL 74-99 Normal (applies to non-numeric re sults) [facility] The reference range is only applicable w hen fasting. Calcium-Uncorrected 8.4-10.2 Normal (applies to non-nume kolton results) [facility] Corrected Calcium 8.4-10.2 Normal (applies to non-numeri c results) [facility] Bilirubin,Total 0.2-1.3 Below low normal [facility] Bilirubin,Direct 0.0-0.3 Normal (applies to non-numeric results) [facility] SGOT(AST) 10 U/L 14-36 Below low normal [facility] SGPT(ALT) 12 U/L 9-52 Normal (applies to non-numeric resul ts) [facility] Alkaline Phosphatase 44 U/L 38-126 Normal (applies to non-num vicente results) [facility] can increase Alkaline Phosp le vels up to 2 times the normal adult value. Normal values for children and adolescents are 2 to 3 times the normal adult value. CPK 36 U/L 26-192 Normal (applies to non-numeric resul ts) [facility] Total Protein 6.3-8.2 Normal (applies to non-numeric re sults) [facility] Albumin 3.5-5.0 Below low normal [facility] Thyroid Stimulate Hormone TSH 0.358-3.740 No rmal (applies to non-numeric results) [facility] ID Date Data Source [id number] 05/19/2020 12:49:00 AM EST [facility] Name Value Range Interpretation Code Description Data Mónica rce(s) Supporting Document(s) White Blood Count 4.8-10.8 Normal (applies to non-numeri c results) [facility] Red Blood Count 3.68-5.22 Normal (applies to non-numeric results) [facility] Hemoglobin 11.2-15.7 Normal (applies to non-numeric resul ts) [facility] Hematocrit 34.1-44.9 Normal (applies to non-numeric resul ts) [facility] Mean Corpuscular Volume 81-99 Normal (applies to non- numeric results) [facility] Mean Corpuscular Hemoglobin 27.0-33.0 Normal (appli es to non-numeric results) [facility] Mean Corpuscular HGB Conc 32.0-36.0 Normal (applies to no n-numeric results) [facility] Red Cell Distribution Width 11.5-14.5 Normal (appli es to non-numeric results) [facility] Platelet Count 320 X10 3/uL 130-450 Normal (applies to non-numeric results) [facility] Mean Platelet Volume 9.5-12.7 Normal (applies to non-num vicente results) [facility] Imm Grans% (AUTO) 0 % 0-2 Normal (applies to non-numeri c results) [facility] Neutrophils % (AUTO) 61 % 40-75 Normal (applies to non-num vicente results) [facility] Lymphocytes % (AUTO) 33 % 21-46 Normal (applies to non-num vicente results) [facility] Monocytes % (AUTO) 4 % 5-12 Below low normal [facility] Eosinophils % (AUTO) 1 % 1-5 Normal (applies to non-num vicente results) [facility] Basophils % (AUTO) 0 % 0-1 Normal (applies to non-numer ic results) [facility] Imm Grans# (AUTO) 0.0-0.5 Normal (applies to non-numeri c results) [facility] Neutrophils # (AUTO) 1.5-8.1 Normal (applies to non-num vicente results) [facility] Lymphocytes # (AUTO) 1.0-3.1 Above high normal [facility] Monocytes # (AUTO) 0.2-1.3 Normal (applies to non-numer ic results) [facility] Eosinophils# (AUTO) 0.0-0.5 Normal (applies to non-nume kolton results) [facility] Basophils # (AUTO) 0.0-0.1 Normal (applies to non-numer ic results) [facility] ID Date Data Source [id number] 05/20/2020 10:24:00 AM EST [facility] Collected By: Nurse Practitioner Piter ls: ar Time Collected: 2114 Name Value Range Interpretation Code Description Data Mónica rce(s) Supporting Document(s) Abscess Culture [facility] ID Date Data Source [id number] 05/20/2020 10:24:00 AM EST [facility] Collected By: Nurse Practitioner Piter ls: ar Time Collected: 2114 Name Value Range Interpretation Code Description Data Mónica rce(s) Supporting Document(s) Amoxicillin/Clavulanic Acid 16 Results entered -- not verified [facility] Cefazolin Results entered -- not verified [facility] Cefepime Susceptible. Indicates for microbiol ogy susceptibilities only. [facility] Ceftriaxone Susceptible. Indicates for m icrobiology susceptibilities only. [facility] Ciprofloxacin Susceptible. Ind icates for microbiology susceptibilities only. [facility] Ertapenem Susceptible. Indicates for microbiol ogy susceptibilities only. [facility] Gentamicin Susceptible. Indicates for microbiol ogy susceptibilities only. [facility] Meropenem Susceptible. Indicates for microbiol ogy susceptibilities only. [facility] Levofloxacin Susceptible. Indicates for m icrobiology susceptibilities only. [facility] Trimeth/Sulfamethoxazole Suscept ible. Indicates for microbiology susceptibilities only. [facility] ID Date Data Source [id number] 05/18/2020 01:25:00 AM EST [facility] Name Value Range Interpretation Code Description Data Mónica rce(s) Supporting Document(s) Opiate Screen,Urine Negative Normal (applies to non-nume kolton results) [facility] Amphetamine Screen,Urine Negative Normal (applies to non -numeric results) [facility] Benzodiazepines Scrn,Ur result Negative N ormal (applies to non-numeric results) [facility] Cocaine Screen,Urine Negative Normal (applies to non-num vicente results) [facility] Methadone Screen,Urine Negative Normal (applies to non-n umeric results) [facility] Cannabinoid Screen, Ur Negative Normal (applies to non-n umeric results) [facility] Therapeutic Drug Ranges for Emergency an d Rehabilitation Threshold Levels (ng/mL) Cocaine 300 Opiates 300 Cannabinoids 50 Barbiturates 200 Benzodiazepine 200 Methadone 300 Amphetamines 1000 All positive findings are presumptive and unconfirmed. Confirmation of positive results are performed only at request of provider. Unconfirmed results must not be used for non-medical purposes (i.e. pre-employment and legal purposes) ID Date Data Source [id number] 05/18/2020 12:53:00 AM EST [facility] Name Value Range Interpretation Code Description Data Mónica rce(s) Supporting Document(s) Color,Urine Yellow Normal (applies to non-numeric resu lts) [facility] Clarity,Urine Clear Normal (applies to non-numeric re sults) [facility] Specific [place],Urine 1.001-1.030 Normal (applies to non- numeric results) [facility] PH,Urine 5.0-8.0 Normal (applies to non-numeric resul ts) [facility] Protein,Urine Negative Normal (applies to non-numeric re sults) [facility] Glucose,Urine (UA) Negative Normal (applies to non-numer ic results) [facility] Ketones,Urine Negative Normal (applies to non-numeric re sults) [facility] Blood,Urine Negative Normal (applies to non-numeric resu lts) [facility] Bilirubin,Urine Negative Normal (applies to non-numeric results) [facility] Urobilinogen,Urine Norm 0.2-1 Normal (applies to non-numer ic results) [facility] Leukocyte Esterase,Urine Negative Normal (applies to non -numeric results) [facility] Nitrite,Urine Negative Normal (applies to non-numeric re sults) [facility] ID Date Data Source [id number] 05/18/2020 12:53:00 AM EST [facility] Name Value Range Interpretation Code Description Data Mónica rce(s) Supporting Document(s) Urine HCG Negative [facility] ID Date Data Source [id number] 05/17/2020 04:25:00 PM EST [facility] Name Value Range Interpretation Code Description Data Mónica rce(s) Supporting Document(s) Respiratory specimen severe acute respir atory syndrome coronavirus 2 (SARS-CoV-2) RNA Negative (qualifier value) [facility] This lab was ordered by [facility] kylah and reported by [facility]. ID Date Data Source [id number] 05/17/2020 05:22:00 PM EST [facility] Name Value Range Interpretation Code Description Data Mónica rce(s) Supporting Document(s) SARS-CoV-2 RNA Negative Normal (applies to non-numeric r esults) [facility] Negative results should be treated as pr esumptive and, if inconsistent with clinical signs and symptoms or necessary for patient management, should be tested with different authorized or cleared molecular tests. Negative results do not preclude SARS-CoV-2 infection and should not be used as the sole basis for patient management decisions. Negative results should be considered in the context of a patients recent exposures, history and the presence of clinical signs and symptoms consistent with COVID-19. This test has not been FDA cleared or approved; this test has been authorized by FDA under an Emergency Use Authorization for use by laboratories certified under the Clinical Laboratory Improvement Amendments of 1988 (CLIA), 42 U.S.C. 263a, to perform moderate complexity/high complexity tests and at the Point of Care (POC), i.e., in patient care settings operating under a CLIA Certificate of Waiver, Certificate of Compliance, or Certificate of Accreditation. Factsheets for healthcare providers: https://www.fda.gov/media/242597/download Factsheets for patients: https://www.fda.gov/media/941930/download The ID NOW Instrument is a rapid molecular in vitro diagnostic test utilizing an isothermal nucleic acid amplification technology intended for the qualitative detection of nucleic acid from the SARS-CoV-2 viral RNA. THIS IS A STATE REPORTABLE COMMUNICABLE DISEASE. Manual entry verified by Jacqueline Arrington 05/17/20 1721 ID Date Data Source [id number] 05/12/2020 01:53:00 PM EST [facility] OB ULTRASOUND, LIMITEDThe patient's LMP is not provided/unknown.Transabdominal imaging was performed.Within the endometrial cavity, there is a gestational sac with a singlefetus. heart motion is detected at a rate of 144 beats per minute.The cervical length is 3.3 cm. The BPD is 2.1 cm corresponding to an EGAof 14 weeks and 3 days with an EDC of 11/07/20. The fetus is in thevertex position. The placenta is anterior without evidence of previa.No areas of hemorrhage are seen.IMPRESSION: LIVE, SINGLE INTRAUTERINE GESTATION. SONOGRAPHIC EGA OF 14WEEKS 3 DAYS. NO AREAS OF HEMORRHAGE.Dictated on 05/12/20 1353 by Henrry Borrego M.D.Transcribed on 05/12/20 1846 by Prince [place] by Henrry Borrego M.D. on 05/13/20 0940Sign by: Henrry Borrego M.D. Name Value Range Interpretation Code Description Data Móniac rce(s) Supporting Document(s) Procedure Social History No Information Vital Signs ID Date Data Source UNK Name Value Range Interpretation Code Description Data Source(s) Body height 65 [in_i] 65 [in_i] MEDENT (Peterson Schneider MD) 5'5" Body weight 146.25 [lb_av] 146.25 [lb_av] MEDEN T (Peterson Schneider MD) Body mass index (BMI) [Ratio] 24.3 kg/m2 24.3 k g/m2 MEDENT (Peterson Schneider MD) Body temperature 98.2 [degF] 98.2 [degF] RADHAENT (Peterson Schneider MD) Systolic blood pressure 107 mm[Hg] 107 mm[Hg] M EDENT (Peterson Schneider MD) Diastolic blood pressure 68 mm[Hg] 68 mm[Hg] PHUONG (Peterson Schneider MD) Heart rate 76 /min 76 /min PHUONG (Peterson Schneider MD) Oxygen saturation in Arterial blood by Pulse oximetry 95 % 95 % PHUONG (Peterson Schneider MD) Respiratory rate 16 /min 16 /min PHUONG ( Peterson Schneider MD) Body height 65 [in_i] 65 [in_i] MEDENT ([facility]) 5'5" Body weight 145.00 [lb_av] 145.00 [lb_av] MEDEN T ([facility]) Body mass index (BMI) [Ratio] 24.1 kg/m2 24.1 k g/m2 MEDENT ([facility]) Body height 65 [in_i] 65 [in_i] MEDENT (Peterson Schneider MD) 5'5" Body weight 145.12 [lb_av] 145.12 [lb_av] MEDEN T (Peterson Schneider MD) Body mass index (BMI) [Ratio] 24.1 kg/m2 24.1 k g/m2 MEDENT (Peterson Schneider MD) Body temperature 97.7 [degF] 97.7 [degF] MEDENT (Peterson Schneider MD) Systolic blood pressure 108 mm[Hg] 108 mm[Hg] M EDENT (Peterson Schneider MD) Diastolic blood pressure 68 mm[Hg] 68 mm[Hg] MEDENT (Peterson Schneider MD) Heart rate 82 /min 82 /min MEDENT (Peterson Schneider MD) Oxygen saturation in Arterial blood by Pulse oximetry 98 % 98 % MEDENT (Peterson Schneider MD) Respiratory rate 16 /min 16 /min MEDENT ( Peterson Schneider MD) ID Date Data Source [id number] 02/07/2021 06:46:00 PM [facility] Name Value Range Interpretation Code Description Data Source(s) Weight (Calculated Kilograms) 62.14 62.14 [facility] Height (Calculated Centimeters) 162.56 162. 56 [facility] Body Mass Index (BMI) 23.5 23.5 [facility] Weight (Calculated Kilograms) 62.14 62.14 [facility] Height (Calculated Centimeters) 162.56 162. 56 [facility] Body Mass Index (BMI) 23.5 23.5 [facility] ID Date Data Source [id number] 02/02/2021 12:20:00 AM [facility] Name Value Range Interpretation Code Description Data Source(s) Weight (Calculated Kilograms) 62.14 62.14 [facility] Height (Calculated Centimeters) 162.56 162. 56 [facility] Body Mass Index (BMI) 23.5 23.5 [facility] ID Date Data Source [id number] 10/29/2020 07:10:00 AM EDT [facility] Name Value Range Interpretation Code Description Data Source(s) Weight Measurement Method 1 1 [facility] Weight (Calculated Kilograms) 62.14 62.14 [facility] Weight 2608 2608 [facility] Temperature Source 1 1 [facility] Temperature 97.7 97.7 [facility] Respiratory Effort 1 1 [facility] Respiratory Rate 20 20 [facility] Pulse Assessment Method 4 4 [facility] Pulse Rate 81 81 [facility] Height (Calculated Centimeters) 162.56 162. 56 [facility] Height 65 65 [facility] Blood Pressure 116/70 116/70 [facility] Body Mass Index (BMI) 23.5 23.5 [facility] Weight Measurement Method 1 1 [facility] Weight (Calculated Kilograms) 62.14 62.14 [facility] Weight 2608 2608 [facility] Temperature Source 1 1 [facility] Temperature 97.7 97.7 [facility] Respiratory Effort 1 1 [facility] Respiratory Rate 20 20 [facility] Pulse Assessment Method 4 4 [facility] Pulse Rate 81 81 [facility] Height (Calculated Centimeters) 162.56 162. 56 [facility] Height 65 65 [facility] Blood Pressure 116/70 116/70 [facility] Body Mass Index (BMI) 23.5 23.5 [facility] Weight Measurement Method 1 1 [facility] Weight (Calculated Kilograms) 62.14 62.14 [facility] Weight 2608 2608 [facility] Temperature Source 1 1 [facility] Temperature 97.7 97.7 [facility] Respiratory Effort 1 1 [facility] Respiratory Rate 20 20 [facility] Pulse Assessment Method 4 4 [facility] Pulse Rate 81 81 [facility] Height (Calculated Centimeters) 162.56 162. 56 [facility] Height 65 65 [facility] Blood Pressure 116/70 116/70 [facility] Body Mass Index (BMI) 23.5 23.5 [facility] Weight Measurement Method 1 1 [facility] Weight (Calculated Kilograms) 62.14 62.14 [facility] Weight 2608 2608 [facility] Temperature Source 7 7 [facility] Temperature 97.3 97.3 [facility] Respiratory Effort 1 1 [facility] Respiratory Rate 18 18 [facility] Pulse Assessment Method 4 4 [facility] Pulse Rate 66 66 [facility] Height (Calculated Centimeters) 162.56 162. 56 [facility] Height 65 65 [facility] Blood Pressure 113/75 113/75 [facility] Body Mass Index (BMI) 23.5 23.5 [facility] Weight (Calculated Kilograms) 62.14 62.14 [facility] Height (Calculated Centimeters) 162.56 162. 56 [facility] Body Mass Index (BMI) 23.5 23.5 [facility] Weight (Calculated Kilograms) 62.14 62.14 [facility] Height (Calculated Centimeters) 162.56 162. 56 [facility] Body Mass Index (BMI) 23.5 23.5 [facility] ID Date Data Source [id number] 10/05/2020 09:55:00 AM EDT [facility] Name Value Range Interpretation Code Description Data Source(s) Weight (Calculated Kilograms) 62.14 62.14 [facility] Height (Calculated Centimeters) 162.56 162. 56 [facility] Body Mass Index (BMI) 23.5 23.5 [facility] ID Date Data Source [id number] 09/09/2020 11:41:00 PM EDT [facility] Name Value Range Interpretation Code Description Data Source(s) Weight (Calculated Kilograms) 62.14 62.14 [facility] Height (Calculated Centimeters) 162.56 162. 56 [facility] Body Mass Index (BMI) 23.5 23.5 [facility] ID Date Data Source [id number] 08/20/2020 06:30:00 AM EDT [facility] Name Value Range Interpretation Code Description Data Source(s) Weight (Calculated Kilograms) 62.14 62.14 [facility] Height (Calculated Centimeters) 162.56 162. 56 [facility] Body Mass Index (BMI) 23.5 23.5 [facility] Hospital ID Date Data Source [id number] 08/05/2020 11:09:00 AM EDT [facility] Name Value Range Interpretation Code Description Data Source(s) Weight (Calculated Kilograms) 62.14 62.14 [facility] Height (Calculated Centimeters) 162.56 162. 56 [facility] Body Mass Index (BMI) 23.5 23.5 [facility] Weight (Calculated Kilograms) 62.14 62.14 [facility] Height (Calculated Centimeters) 162.56 162. 56 [facility] Body Mass Index (BMI) 23.5 23.5 [facility] Weight (Calculated Kilograms) 62.14 62.14 [facility] Height (Calculated Centimeters) 162.56 162. 56 [facility] Body Mass Index (BMI) 23.5 23.5 [facility] Weight (Calculated Kilograms) 62.14 62.14 [facility] Height (Calculated Centimeters) 162.56 162. 56 [facility] Body Mass Index (BMI) 23.5 23.5 [facility] Hospital ID Date Data Source [id number] 07/27/2020 03:58:00 PM EDT [facility] Name Value Range Interpretation Code Description Data Source(s) Weight (Calculated Kilograms) 62.14 62.14 [facility] Height (Calculated Centimeters) 162.56 162. 56 [facility] Body Mass Index (BMI) 23.5 23.5 [facility] Hospital ID Date Data Source [id number] 07/22/2020 06:18:00 PM T [facility] Name Value Range Interpretation Code Description Data Source(s) Weight (Calculated Kilograms) 62.14 62.14 [facility] Height (Calculated Centimeters) 162.56 162. 56 [facility] Body Mass Index (BMI) 23.5 23.5 [facility] ID Date Data Source [id number] 07/29/2020 11:55:00 AM EDT [facility] Name Value Range Interpretation Code Description Data Source(s) Weight (Calculated Kilograms) 62.14 62.14 [facility] Height (Calculated Centimeters) 162.56 162. 56 [facility] Body Mass Index (BMI) 23.5 23.5 [facility] Hospital ID Date Data Source [id number] 07/07/2020 12:38:00 AM EDT [facility] Name Value Range Interpretation Code Description Data Source(s) Weight (Calculated Kilograms) 62.14 62.14 [facility] Height (Calculated Centimeters) 162.56 162. 56 [facility] Body Mass Index (BMI) 23.5 23.5 [facility] ID Date Data Source [id number] 06/29/2020 02:06:00 PM EDT [facility] Name Value Range Interpretation Code Description Data Source(s) Weight (Calculated Kilograms) 62.14 62.14 [facility] Height (Calculated Centimeters) 162.56 162. 56 [facility] Body Mass Index (BMI) 23.5 23.5 [facility] ID Date Data Source [id number] 06/25/2020 02:41:00 PM T [facility] Name Value Range Interpretation Code Description Data Source(s) Weight (Calculated Kilograms) 62.14 62.14 [facility] Height (Calculated Centimeters) 162.56 162. 56 [facility] Body Mass Index (BMI) 23.5 23.5 [facility] Weight (Calculated Kilograms) 62.14 62.14 [facility] Height (Calculated Centimeters) 162.56 162. 56 [facility] Body Mass Index (BMI) 23.5 23.5 [facility] Weight (Calculated Kilograms) 62.14 62.14 [facility] Height (Calculated Centimeters) 162.56 162. 56 [facility] Body Mass Index (BMI) 23.5 23.5 [facility] Weight (Calculated Kilograms) 62.14 62.14 [facility] Height (Calculated Centimeters) 162.56 162. 56 [facility] Body Mass Index (BMI) 23.5 23.5 [facility] Hospital ID Date Data Source [id number] 06/12/2020 12:21:00 AM [facility] Name Value Range Interpretation Code Description Data Source(s) Weight (Calculated Kilograms) 62.14 62.14 [facility] Height (Calculated Centimeters) 162.56 162. 56 [facility] Body Mass Index (BMI) 23.5 23.5 [facility] ID Date Data Source [id number] 06/11/2020 12:08:00 AM [facility] Name Value Range Interpretation Code Description Data Source(s) Weight (Calculated Kilograms) 62.14 62.14 [facility] Height (Calculated Centimeters) 162.56 162. 56 [facility] Body Mass Index (BMI) 23.5 23.5 [facility] ID Date Data Source [id number] 06/05/2020 12:23:00 AM [facility] Name Value Range Interpretation Code Description Data Source(s) Weight (Calculated Kilograms) 62.14 62.14 [facility] Height (Calculated Centimeters) 162.56 162. 56 [facility] Body Mass Index (BMI) 23.5 23.5 [facility] ID Date Data Source [id number] 05/27/2020 01:25:00 AM [facility] Name Value Range Interpretation Code Description Data Source(s) Weight (Calculated Kilograms) 62.14 62.14 [facility] Height (Calculated Centimeters) 162.56 162. 56 [facility] Body Mass Index (BMI) 23.5 23.5 [facility] ID Date Data Source [id number] 05/20/2020 02:44:00 AM [facility] Name Value Range Interpretation Code Description Data Source(s) Weight (Calculated Kilograms) 62.14 62.14 [facility] Height (Calculated Centimeters) 162.56 162. 56 [facility] Body Mass Index (BMI) 23.5 23.5 [facility] ID Date Data Source [id number] 07/08/2020 06:13:00 PM [facility] Name Value Range Interpretation Code Description Data Source(s) Weight Measurement Method 1 1 [facility] Weight (Calculated Kilograms) 62.14 62.14 [facility] Weight 2288 2288 [facility] Temperature Source 7 7 [facility] Temperature 97.5 97.5 [facility] Respiratory Effort 1 1 [facility] Respiratory Rate 16 16 [facility] Pulse Assessment Method 4 4 [facility] Pulse Rate 76 76 [facility] Height (Calculated Centimeters) 162.56 162. 56 [facility] Height 64 64 [facility] Blood Pressure 108/65 108/65 [facility] Body Mass Index (BMI) 23.5 23.5 [facility] Weight Measurement Method 1 1 [facility] Weight (Calculated Kilograms) 62.14 62.14 [facility] Weight 2288 2288 [facility] Temperature Source 7 7 [facility] Temperature 97.5 97.5 [facility] Respiratory Effort 1 1 [facility] Respiratory Rate 16 16 [facility] Pulse Assessment Method 4 4 [facility] Pulse Rate 76 76 [facility] Height (Calculated Centimeters) 162.56 162. 56 [facility] Height 64 64 [facility] Blood Pressure 108/65 108/65 [facility] Body Mass Index (BMI) 23.5 23.5 [facility] Weight Measurement Method 1 1 [facility] Weight (Calculated Kilograms) 62.14 62.14 [facility] Weight 2288 2288 [facility] Temperature Source 7 7 [facility] Temperature 97.5 97.5 [facility] Respiratory Effort 1 1 [facility] Respiratory Rate 16 16 [facility] Pulse Assessment Method 4 4 [facility] Pulse Rate 76 76 [facility] Height (Calculated Centimeters) 162.56 162. 56 [facility] Height 64 64 [facility] Blood Pressure 108/65 108/65 [facility] Body Mass Index (BMI) 23.5 23.5 [facility] Weight Measurement Method 1 1 [facility] Weight (Calculated Kilograms) 62.14 62.14 [facility] Weight 2192 2192 [facility] Temperature Source 7 7 [facility] Temperature 97.3 97.3 [facility] Respiratory Effort 1 1 [facility] Respiratory Rate 16 16 [facility] Pulse Assessment Method 4 4 [facility] Pulse Rate 65 65 [facility] Height (Calculated Centimeters) 162.56 162. 56 [facility] Height 64 64 [facility] Blood Pressure 97/60 97/60 [facility] Body Mass Index (BMI) 23.5 23.5 [facility] Weight Measurement Method 1 1 [facility] Weight (Calculated Kilograms) 62.14 62.14 [facility] Weight 2192 2192 [facility] Temperature Source 7 7 [facility] Temperature 96.9 96.9 [facility] Respiratory Effort 1 1 [facility] Respiratory Rate 16 16 [facility] Pulse Assessment Method 4 4 [facility] Pulse Rate 80 80 [facility] Height (Calculated Centimeters) 162.56 162. 56 [facility] Height 64 64 [facility] Blood Pressure 111/65 111/65 [facility] Body Mass Index (BMI) 23.5 23.5 [facility]
[2021-02-10] MEDS ORDERED: SERO1TAB3 PO (12:36)
[2021-02-10] MEDS ORDERED: PROZ40CA PO (12:36)
[2021-02-10] MEDS ORDERED: SUBO12MI (12:36)
[2021-02-10] MEDS ORDERED: FLUORESCEIN OPHTH 1 MG STRIP OD ONE (17:20)
[2021-02-10] MEDS ORDERED: TETRACAINE 0.5% OPHTH SOLN 4ML OD ONE (17:20)
[2021-02-10] MEDS ORDERED: NS 1,000 ML IV ONE (17:35)
[2021-02-10] MEDS ORDERED: ACETAMINOPHEN 500 MG TAB PO ONE (17:35)
--- OUTSIDE RECORDS SUMMARY | 2021-02-10 17:43 | CCD ---
Author Author [facility] Organization [facility] Address Unknown Phone Unavailable Care Team Providers Care Kaiawhina Kura [place] Name Role Phone VANWAGNER, YANI DO Unavailable [...] Unavailable Unavailable Herson Pang M.D. Unavailable Unavailable CAROL YOST MD Unavailable Unavailable CAROL YOST MD Unavailable Unavailable CAROL YOST MD Unavailable Unavailable CAROL YOST MD Unavailable Unavailable CAROL YOST MD Unavailable Unavailable CAROL YOST MD Unavailable Unavailable CAROL YOST MD Unavailable Unavailable Tuyet J Raymonda, OUTBOUND SALES AGENT Unavailable Unavailable Idania Lawson, F OUTBOUND SALES AGENT OUTBOUND SALES AGENT Unavailable Unavailable Idania Lawson, F OUTBOUND SALES AGENT OUTBOUND SALES AGENT Unavailable Unavailable RACHELLE DUNLAP MD Unavailable Unavailable RACHELLE DUNLAP MD Unavailable Unavailable RACHELLE DUNLAP MD Unavailable Unavailable RACHELLE DUNLAP MD Unavailable Unavailable RACHELLE DUNLAP MD Unavailable Unavailable RACHELLE DUNLAP MD Unavailable Unavailable RACHELLE DUNLAP MD Unavailable Unavailable RACHELLE DUNLAP MD Unavailable Unavailable RACHELLE DUNLAP MD Unavailable Unavailable RACHELLE DUNLPA MD Unavailable Unavailable RACHELLE DUNLAP MD Unavailable [...] M.D. Unavailable Herson Montes M.D. Unavailable [phone] Herson Montes M.D. Unavailable DEFAULT, PROVIDER Unavailable [...] Unavailable Rodgers, Jane PA Unavailable Unavailable Rodgers, Ajne PA Unavailable Unavailable Rodgers, Jane PA Unavailable [...] G CATY PA Unavailable Unavailable TONTARSLATOSHA, G CAYT PA Unavailable Unavailable TONTARSLATOSHA, G CATY PA [...] FABI PA Unavailable Unavailable BROWN, DALIA IDANIA METAL CUT OFF SAW OPERATOR Unavailable Unavailable BROWN, DALIA IDANIA METAL CUT OFF SAW OPERATOR Unavailable Unavailable BROWN, DALIA IDANIA METAL CUT OFF SAW OPERATOR Unavailable Unavailable BROWN, DALIA IDANIA METAL CUT OFF SAW OPERATOR Unavailable Unavailable BROWN, DALIA IDANIA METAL CUT OFF SAW OPERATOR Unavailable Unavailable BROWN, DALIA IDANIA METAL CUT OFF SAW OPERATOR Unavailable Unavailable BROWN, DALIA IDANIA METAL CUT OFF SAW OPERATOR Unavailable Unavailable BROWN, DALIA IDANIA METAL CUT OFF SAW OPERATOR Unavailable Unavailable BROWN, DALIA IDANIA METAL CUT OFF SAW OPERATOR Unavailable Unavailable BROWN, DALIA IDANIA METAL CUT OFF SAW OPERATOR Unavailable Unavailable BROWN, DALIA IDANIA METAL CUT OFF SAW OPERATOR Unavailable Unavailable BROWN, DALIA IDANIA METAL CUT OFF SAW OPERATOR Unavailable Unavailable BROWN, DALIA IDANIA METAL CUT OFF SAW OPERATOR Unavailable Unavailable BROWN, DALIA IDANIA METAL CUT OFF SAW OPERATOR Unavailable Unavailable BROWN, DALIA IDANIA METAL CUT OFF SAW OPERATOR Unavailable Unavailable BROWN, DALIA IDANIA METAL CUT OFF SAW OPERATOR Unavailable Unavailable BROWN, DALIA IDANIA METAL CUT OFF SAW OPERATOR Unavailable Unavailable BROWN, DALIA IDANIA METAL CUT OFF SAW OPERATOR Unavailable Unavailable BROWN, DALIA IDANIA METAL CUT OFF SAW OPERATOR Unavailable Unavailable BROWN, DALIA IDANIA METAL CUT OFF SAW OPERATOR Unavailable Unavailable BROWN, DALIA IDANIA METAL CUT OFF SAW OPERATOR Unavailable Unavailable BROWN, DALIA IDANIA METAL CUT OFF SAW OPERATOR Unavailable Unavailable BROWN, DALIA IDANIA METAL CUT OFF SAW OPERATOR Unavailable Unavailable BROWN, DALIA IDANIA METAL CUT OFF SAW OPERATOR Unavailable Unavailable BROWN, DALIA IDANIA METAL CUT OFF SAW OPERATOR Unavailable Unavailable BROWN, DALIA IDANIA METAL CUT OFF SAW OPERATOR Unavailable Unavailable BROWN, DALIA IDANIA METAL CUT OFF SAW OPERATOR Unavailable Unavailable BROWN, DALIA IDANIA METAL CUT OFF SAW OPERATOR Unavailable Unavailable BROWN, DALIA IDANIA METAL CUT OFF SAW OPERATOR Unavailable Unavailable BROWN, DALIA IDANIA METAL CUT OFF SAW OPERATOR Unavailable Unavailable BROWN, DALIA IDANIA METAL CUT OFF SAW OPERATOR Unavailable Unavailable BROWN, DALIA IDANIA METAL CUT OFF SAW OPERATOR Unavailable Unavailable BROWN, DALIA IDANIA METAL CUT OFF SAW OPERATOR Unavailable Unavailable BROWN, DALIA IDANIA METAL CUT OFF SAW OPERATOR Unavailable Unavailable BROWN, DALIA IDANIA METAL CUT OFF SAW OPERATOR Unavailable Unavailable BROWN, DALIA IDANIA METAL CUT OFF SAW OPERATOR Unavailable Unavailable BROWN, DALIA IDANIA METAL CUT OFF SAW OPERATOR Unavailable Unavailable BROWN, DALIA IDANIA METAL CUT OFF SAW OPERATOR Unavailable Unavailable BROWN, DALIA IDANIA METAL CUT OFF SAW OPERATOR Unavailable Unavailable BROWN, DALIA IDANIA METAL CUT OFF SAW OPERATOR Unavailable Unavailable Herson Montes M.D. Unavailable [phone] Herson Montes M.D. Unavailable [phone] Herson Montes M.D. Unavailable [phone] Herson Montes M.D. Unavailable Herson Montes M.D. Unavailable [phone] Herson Montes M.D. Unavailable [phone] Herson Montes M.D. Unavailable Matt De Souza [...] is protected by Article 27-F of the [facility] Public Health law. If you continue you may have access to information: Regarding HIV / AIDS; Provided by facilities licensed or operated by the [facility] Office of Mental Health; or Provided by the [facility] Office for People With Developmental Disabilities. If such information is present, then the following [facility] mandated warning applies: This information has been [...] law may result in a fine or fci sentence or both. A general authorization for the release of medical or other information is NOT sufficient authorization for further disc losure. Allergies and Adverse Reactions Type Description Substance Reaction Status Data Source(s ) Drug allergy Drug allergy almond Hives [facility] Drug allergy Drug allergy lavender (Lavandula angustifolia) Hives [facility] Drug allergy Drug allergy amoxicillin Hives I [facility] Drug allergy Drug allergy chamomile flower Other M [facility] on [facility] Drug allergy Drug allergy Penicillins Hives I [facility] Encounters Encounter Providers Location Date Indications Data Source(s ) Outpatient Attender: PROVIDER DEFAULT 02/06/2021 02:03:09 AM EST [facility] Outpatient Attender: Shandra Roca [facility] 11:00:00 AM EST [facility] ([facility]on Schneider MD) Outpatient Attender: NADINE Lawson FNPAttender: IDANIA LAWSON NP ED-LABPNP 02/01/2021 02:34:00 PM EST - 02/01/2021 02:35:00 PM EST Z124 [facility] Z124 Patient discharged. Outpatient Attender: NADINE Lawson FNPAttender : IDANIA LAWSON NP CPSCAORT-LABEJN 02/01/2021 10:15:00 AM EST Z12.4 [facility] Z12.4 Outpatient Attender: IDANIA LAWSON NP CPSCAORT-CPSGNOBG 11/2020 09:56:00 AM EST - 02/01/2021 09:57:00 AM EST [facility] Patient discharged. Outpatient Attender: Jane KAUR Physical Therapy 12/24 01:00:00 PM EDT [facility] ([facility] Outpatient Attender: CATY [...] 08:30:00 PM EDT REPEAT ; ACTIVE LABOR [facility] REPEAT ; ACTIVE LABOR Patient discharged. Outpatient Attender: Bran Montes M.D. SURG-NPLAB 10/05/2020 12:42:00 PM EDT [facility] Outpatient Attender: Bran Montes M.D. SURG-IMMIGRATION ATTORNEY. MAS 10/05/2020 08:32:00 AM EDT [facility] Outpatient Attender: Bran Montes M.D. LKKC-IMMIGRATION ATTORNEY. LSS 10/05/2020 08:31:00 AM EDT [facility] Outpatient Attender: Gilmar IVYCAPASCUAL-CPSCNOBG 09/15 10:48:00 AM EDT - 09/15/2020 10:49:00 AM EDT O99.323 [facility] O99.323 Patient discharged. Outpatient Attender: RACHELLE ACHARYA-CPSCNOBG 08/24 10:11:00 AM EDT - 09/03/2020 10:12:[address] [facility]30 Patient discharged. Outpatient Attender: RACHELLE IVYCAPASCUAL-CPSCNOBG 07/24 10:20:00 AM EDT - 08/06/2020 10:21:[address] [facility] Patient [facility] Inpatient Attender: Bran ortiz M.D.Admitter: Bran Montes M.D. CPSCAORT-OB 07/29/2020 10:13:00 PM EDT - 07/30/2020 04:00:00 PM EDT [facility] Patient discharged. Emergency Attender: Gil Pang M.D. SURG-ER 07/29/2020 11:50:0 0 AM EDT [facility] Patient discharged. Preadmit CPSCAORT-CHEPDREH 07/28/2020 12:00:00 PM EDT PS [facility] PSD Preadmit CPSCAORT-CHEPDREH 07/23/2020 01:00:00 PM EDT PS D [facility] PSD Outpatient Attender: RACHELLE DUNLAP MD CPSCAORT-CPSCNOBG 06/25 03:32:00 PM EDT - 07/21/2020 03:33:00 PM EDT [facility] Patient discharged. Outpatient Attender: RACHELLE DUNLAP MD CPSCAORT-CPSCNOBG 06/24 03:14:00 PM EDT - 07/06/2020 03:15:00 PM EDT [facility] Patient discharged. Preadmit CPSCAORT-CHEPDREH 06/30/2020 05:00:00 PM EDT PS D [facility] PSD Outpatient Attender: Lakia De Souza LCSWAttender: Contreras DEBURRING MACHINE OPERATOR CPSCAORT-CHEPDREH 06/23/2020 05:00:00 PM EDT - 06/23/2020 05:01:00 PM EDT PSD [facility] PSD Patient discharged. Outpatient Attender: RACHELLE DUNLAP MD SURG-ULTRA 06/16/2020 12:29:00 P M EDT [facility]. Outpatient Attender: RACHELLE DUNLAP MD CPSCAORT-CPSCNOBG 05/24 12:15:00 PM EDT - 06/11/2020 12:16:00 PM EDT [facility] Patient discharged. Outpatient Attender: YANI RAJPUT DO CPSCAORT-CPSLAOPT 08:33:00 AM EDT - 06/10/2020 08:34:00 AM EDT [facility] Patient discharged. Outpatient Attender: RACHELLE DUNLAP MD CPSCAORT-CPSCNOBG 05/24 11:27:00 AM EST - 06/04/2020 11:28:00 AM EST [facility] Patient discharged. Outpatient Attender: RACHELLE DUNALP MD CPSCAORT-CPSCNOBG 05/2020 01:39:00 PM EST - 05/26/2020 01:40:00 PM EST [facility] Patient discharged. Outpatient Attender: Nataly Ledezma MD CPSCAORT-JPNG4GJR 05/19 09:33:00 AM EST - 05/19/2020 09:34:00 AM [facility] Patient discharged. Inpatient Attender: CAROL QUIROZSalome Altman nder: Carol Yost MDAdmitter: Carol Yost MDReferrer: NADINE Tuyet Spears CPSCAORT-CHEPPDREH 05/17/2020 04:16:00 P M EST - 06/14/2020 04:25:00 PM EDT PSYCHOACTIVE SUBSTANCE DEPENDENCE [facility] PSYCHOACTIVE SUBSTANCE DEPENDENCE Patient discharged. Outpatient Attender: RACHELLE DUNLAP MD CPSCAORT-CPSCNOBG 04/26 01:50:00 PM EST - 05/12/2020 01:51:00 PM [facility] Patient discharged. Outpatient Attender: RACHELLE DUNLAP MD SURG-ULTRA 05/12/2020 11:18:00 A [facility] Medications Medication Brand Name Start Date Product [...] BY MOUTH TWICE A DAY SOLD: 07/01/2020 [facility] 8-2 mg 06/21/2020 12:00:00 AM EDT [...] SP [id number] SRMHS [id number] SP [id number] SRMHS [id number] SP [id number] SRM[facility] [id number] SP [id number] [facility] [id number] SP [id number] [facility] [id number] Unemployed [id number] MEDICAID [id number] Unemployed [id number] [facility] [id number] S [id number] [facility] [id number] S [id number] [facility] [id number] S [id number] MEDICAID [id number] S [id number] [facility] [id number] S [id number] [facility] MEDICAID [id number] SP [id number] SP [id number] SRMHS [id number] SP [id number] S [id number] SELF-PAY [id number] S [id number] [facility] PHYSICIAN [id number] S [id number] MEDICAID PROF FEES [id number] S E [id number] [facility] [id number] SP [id number] MEDICAID [id number] [facility] [id number] Unemployed [id number] [facility] [id number] S [id number] [facility] [id number] SP [id number] [facility] MEDICAID [id number] SP [id number] Problems, Conditions, and Diagnoses Code Display Name Description Problem Type Effective Dates Data Source(s) Z11.51 Encounter for screening for human papill omavirus (HPV) ENCOUNTER FOR SCREENING FOR HUMAN PAPILLOMAVIRUS (HPV) Diagnosis 02/01/2021 02:34:00 PM [facility] Z12.4 Encounter for screening for malignant ne oplasm of cervix ENCOUNTER FOR SCREENING FOR MALIGNANT NEOPLASM OF CERVIX Diagnosis 02/01/2021 02:34: 00 PM [facility] Z12.4 Encounter for screening for malignant ne oplasm of cervix ENCOUNTER FOR SCREENING FOR MALIGNANT NEOPLASM OF CERVIX Diagnosis 02/01/2021 09:56: 00 AM [facility] Z12.39 Encounter for other screening for malign ant neoplasm of breast ENCOUNTER FOR OTH SCREENING FOR MALIGNANT NEOPLASM OF BREAST Diagnosis 11/2020 09:56:00 AM [facility] Z01.419 Encounter for gynecological examination (general) (routine) without abnormal findings ENCNTR FOR SALESPERSON BURIAL NEEDS EXAM (GENERAL) (ROUTINE) W/O ABN FINDIN GS Diagnosis 02/01/2021 09:56:00 AM [facility] Z37.0 Single live SINGLE LIVE Diagnosis 10/11/2020 07:34:00 AM [facility] Z3A.35 35 weeks gestation of 35 WEEKS GESTATI ON OF Diagnosis 10/11/2020 07:34:00 AM [facility] O32.1XX0 Maternal care for breech presentation, n ot applicable or unspecified MATERNAL CARE FOR BREECH PRESENTATION, UNSP Diagnosis 10/11/2020 07:34:00 AM [facility] L02.415 Cutaneous abscess of right lower limb CU TANEOUS ABSCESS OF RIGHT LOWER LIMB Diagnosis 10/11/2020 07:34:00 AM [facility] L02.416 Cutaneous abscess of left lower limb CUT ANEOUS ABSCESS OF LEFT LOWER LIMB Diagnosis 10/11/2020 07:34:00 AM [facility] O60.13X0 labor second trimest er with delivery third trimester, not applicable or unspecified LABOR SECOND TRI W DELIV ANAHY THIRD TRI, UNSP Diagnosis 10/11/2020 07:34:00 AM [facility] F17.210 Nicotine dependence, cigarettes, uncompl icated NICOTINE DEPENDENCE, CIGARETTES, UNCOMPLICATED Diagnosis 10/11/2020 07:34:00 AM [facility] O99.334 Smoking (tobacco) complicating childbirt h SMOKING (TOBACCO) COMPLICATING CHILDBIRTH Diagnosis 10/11/2020 07:34:00 AM [facility] Z91.19 Patient's noncompliance with other medic al treatment and regimen PATIENT'S NONCOMPLIANCE W OTH MEDICAL TREATMENT AND REGIMEN Diagnosis 10/11/2020 07:34:00 AM [facility] F32.9 Major depressive disorder, single episod e, unspecified MAJOR DEPRESSIVE DISORDER, SINGLE EPISODE, UNSPECIFIED Diagnosis 10/11/2020 07:34:00 AM EDT [facility] O99.344 Other mental disorders complicating chil dbirth OTHER MENTAL DISORDERS COMPLICATING CHILDBIRTH Diagnosis 10/11/2020 07:34:[address] [facility] B19.20 Unspecified viral hepatitis C without he patic coma UNSPECIFIED VIRAL HEPATITIS C WITHOUT HEPATIC COMA Diagnosis 10/11/2020 07:34:00 AM EDT [facility] O98.42 Viral hepatitis complicating childbirth VIRAL HEPATITIS COMPLICATING CHILDBIRTH Diagnosis 10/11/2020 07:34:00 AM EDT [facility] F19.10 Other psychoactive substance abuse, unco mplicated OTHER PSYCHOACTIVE SUBSTANCE ABUSE, UNCOMPLICATED Diagnosis 10/11/2020 07:34:00 AM EDT [facility] O99.324 Drug use complicating childbirth DRUG USE COMPLI CATING CHILDBIRTH Diagnosis 10/11/2020 07:34:00 AM EDT [facility] O34.211 Maternal care for low transverse scar fr om previous delivery MATERN CARE FOR LOW TRANSVERSE SCAR FROM PREV DEL Diagnosis 10/11/2020 07:34:00 AM [facility] Z34.83 Encounter for supervision of other sabrina l , third trimester ENCOUNTER FOR SUPRVSN OF NORMAL , THIRD TRIMESTER Diagnosis 10/05/2020 12:42:00 PM EDT [facility] O99.323 Drug use complicating , third t rimester DRUG USE COMPLICATING , THIRD TRIMESTER Diagnosis 09/15/2020 10:48:00 AM EDT [facility] O09.33 Supervision of wit h insufficient care, third trimester SUPRVSN OF PREG W INSUFFICIENT ANTENAT CARE, THIRD TRI MESTER Diagnosis 09/15/2020 10:48:00 AM [facility] Z3A.32 32 weeks gestation of 32 WEEKS GESTATI ON OF Diagnosis 09/15/2020 10:48:00 AM [facility] F11.20 Opioid dependence, uncomplicated OPIOID DEPENDEN CE, UNCOMPLICATED Diagnosis 09/03/2020 10:11:00 AM [facility] Z34.83 Encounter for supervision of other sabrina l , third trimester ENCOUNTER FOR SUPRVSN OF NORMAL , THIRD TRIMESTER Diagnosis 09/03/2020 10:11:00 AM [facility] Z3A.26 26 weeks gestation of 26 WEEKS GESTATI ON OF Diagnosis 08/06/2020 10:20:00 AM [facility] Z34.82 Encounter for supervision of other sabrina l , second trimester ENCOUNTER FOR SUPRVSN OF NORMAL , SECOND TRIMESTER Diagnosis 08/06/2020 10:20:00 AM [facility] Z3A.24 24 weeks gestation of 24 WEEKS GESTATI ON OF Diagnosis 07/21/2020 03:32:00 PM [facility] F17.200 Nicotine dependence, unspecified, uncomp licated NICOTINE DEPENDENCE, UNSPECIFIED, UNCOMPLICATED Diagnosis 06/23/2020 05:00:00 PM [facility] F14.20 Cocaine dependence, uncomplicated COCAINE DEPEND ENCE, UNCOMPLICATED Diagnosis 06/23/2020 05:00:00 PM [facility] F10.21 Alcohol dependence, in remission ALCOHOL DEPENDE NCE, IN REMISSION Diagnosis 06/23/2020 05:00:00 PM [facility] F11.21 Opioid dependence, in remission OPIOID DEPENDENC E, IN REMISSION Diagnosis 06/23/2020 05:00:00 PM [facility] Z3A.16 16 weeks gestation of 16 WEEKS GESTATI ON OF Diagnosis 06/16/2020 12:29:00 PM [facility]. F43.10 Post-traumatic stress disorder, unspecif ied POST-TRAUMATIC STRESS DISORDER, UNSPECIFIED Diagnosis 05/17/2020 04:16:00 PM [facility] G47.00 Insomnia, unspecified INSOMNIA, UNSPECIFIED Diagnosis 05/17/2020 04:16:00 PM [facility] F41.9 Anxiety disorder, unspecified ANXIETY DISORDER, UNSPEC IFIED Diagnosis 05/17/2020 04:16:00 PM [facility] O99.342 Other mental disorders complicating preg tan, second trimester OTH MENTAL DISORDERS COMP , SECOND TRIMESTER Diagnosis 04/27 04:16:00 PM [facility] Z3A.14 14 weeks gestation of 14 WEEKS GESTATI ON OF Diagnosis 05/17/2020 04:16:00 PM [facility] Z88.0 Allergy status to penicillin ALLERGY STATUS TO PENICIL KIMBER Diagnosis 05/17/2020 04:16:00 PM [facility] H52.13 Myopia, bilateral MYOPIA, BILATERAL Diagnosis 05/17/2020 04:16:00 PM [facility] B39.9 Histoplasmosis, unspecified HISTOPLASMOSIS, UNSPECIFIE D Diagnosis 05/17/2020 04:16:00 PM [facility] H16.223 Keratoconjunctivitis sicca, not specifie d as Sjogren's, bilateral KERATOCONJUNCT SICCA, NOT SPECIFIED SJOGREN'S, BILATERAL Diagnosis 05/17/2020 04:16:00 PM [facility] F17.290 Nicotine dependence, other tobacco produ ct, uncomplicated NICOTINE DEPENDENCE, OTHER TOBACCO PRODUCT, UNCOMPLICATED Diagnosis 05/17 04:16:00 PM [facility] O99.322 Drug use complicating , second trimester DRUG USE COMPLICATING , SECOND TRIMESTER Diagnosis 05/17/2020 04:16:00 PM [facility] B96.89 Other specified bacterial ag ents as the cause of diseases classified elsewhere OTH BACTERIAL AGENTS THE CAUSE OF DISEASES CLASSD ELSWHR Diagnosis 05/17/2020 04:16:00 PM [facility] L02.211 Cutaneous abscess of abdominal wall CUTANEOUS AB SCESS OF ABDOMINAL WALL Diagnosis 05/17/2020 04:16:00 PM [facility] B18.2 Chronic viral hepatitis C CHRONIC VIRAL HEPATITIS C Di agnosis 05/17/2020 04:16:00 PM [facility] Z3A.12 12 weeks gestation of 12 WEEKS GESTATI ON OF Diagnosis 05/12/2020 11:18:00 AM EST [facility]. [id number] Drug dependence Drug dependence Problem 02/02/2021 12:0 0:00 AM EST [facility] (Peterson Schneider MD) [id number] Nicotine dependence Nicotine dependence Problem 1 04/04/2020 12:00:00 AM EST [facility] ([facility]on Schneider MD) [id number] Insomnia Insomnia Problem 02/02/2021 12:00:00 AM ES T [facility] (Peterson Schneider MD) [id number] Anxiety state Anxiety state Problem 02/02/2021 12:00:00 AM EST [facility] ([facility]on Schneider MD) Surgeries/Procedures Procedure Description Date Indications Data Source(s) OFFICE OUTPATIENT VISIT 25 MINUTES 02/03/2021 12:00:00 AM EST [facility] ([facility]on Schneider MD) TOBACCO USE CESSATION INTERMEDIATE 3-10 MINUTES 2020 12:00:00 AM EST [facility] (Peterson Schneider MD) PERIODIC PREVENTIVE MED EST PATIENT 18-39 YRS PREV VISIT EST AGE 18-39 02/01/2021 12:00:00 AM [facility] 86220 HPV HIGH-RISK TYPES 02/01/2021 12:00:00 AM [facility] CYTP CERV/VAG AUTO THIN LAYER PREP MNL SCREEN CYTOPATH C/V T HIN LAYER 02/01/2021 12:00:00 AM [facility] RADEX FOOT COMPLETE MINIMUM 3 VIEWS 01/07/2021 12:00:0 0 AM EDT [facility] ([facility]) OFFICE OUTPATIENT NEW 45 MINUTES 01/07/2021 12:00:00 A M EDT [facility] ([facility]) OFFICE OUTPATIENT VISIT 10 [...] CONCEPTION, LOW, OPEN APPROACH 10/11/2020 12:00:00 AM [facility] OFFICE OUTPATIENT VISIT 10 MINUTES OFFICE/OUTPATIENT VISIT E ST 09/15/2020 12:00:00 AM [facility] [address]104 DRUG SCREENING BUPRENORPHINE 09/15/2020 12:00:00 AM ED [facility] 45237 DRUG TEST PRSMV CHEM ANLYZR 09/15/2020 12:00:00 AM [facility] BIOPHYSICAL PROFILE W/O NON-STRESS TESTING 07/29 12:00:00 AM [facility] ANTIBODY RUBELLA 07/29/2020 12:00:00 AM [facility] ANTIBODY VARICELLA-ZOSTER 07/29/2020 12:00:00 AM [facility] CUL PRSMPTV PTHGNC ORGANISM SCRN W/COLONY ESTIMJ 07/29 12:00:00 AM [facility] SUSCEPTIBLTY STDY ANTIMICRBIAL MICRO/AGAR DILUTJ 07/29 12:00:00 AM [facility] IAAD EIA HIV-1 AG W/HIV-1&HIV-2 ANTBDY SINGLE 07/30/19 12:00:00 AM [facility] URINALYSIS MICROSCOPIC ONLY 07/29/2020 12:00:00 AM [facility] THROMBOPLASTIN TIME PARTIAL PLASMA/WHOLE BLOOD 021 12:00:00 AM [facility] PROTHROMBIN TIME 07/29/2020 12:00:00 AM [facility] COMPREHENSIVE METABOLIC PANEL 07/29/2020 12:00:[address] [facility] FIBRINOGEN ACTIVITY 07/29/2020 12:00:00 AM [facility] Non-covered item or service 07/29/2020 12:00:00 AM [facility] NONSTRESS TEST 07/29/2020 12:00:00 AM [facility] Ultrasonography of Right and Left Heart ULTRASONOGRAPHY OF R IGHT AND LEFT HEART 06/01/2020 12:00:00 AM [facility] Individual Counseling for Substance Abuse Treatment, C ognitive-Behavioral INDIV SECOND CRUSHER FOR SUBSTANCE ABUSE, COGNITIVE BEHAVIORAL 05/18/2020 12:00:00 AM [facility] Group Counseling for Substance Abuse Treatment, Motiva tional Enhancement GROUP SECOND CRUSHER FOR SUBSTANCE ABUSE, MOTIVATIONAL ENHANCE 05/18/2020 12:00:00 AM [facility] Group Counseling for Substance Abuse Treatment, Spirit ual GROUP COUNSELING FOR SUBSTANCE ABUSE TREATMENT, SPIRITUAL 05/18/2020 12:00:00 AM [facility] Group Counseling for Substance Abuse Treatment, Cognit sergio-Behavioral GROUP SECOND CRUSHER FOR SUBSTANCE ABUSE, COGNITIVE BEHAVIORAL 05/18/2020 12:00:00 AM [facility] Results ID Date Data Source [id number] 02/08/2021 07:33:00 AM [facility] SALESPERSON BURIAL NEEDS TEST TO BE ORDERED: PAP and HPV (HR )LAST MENSTRUAL PERIOD 01/13/21SOURCE OF SPECIMEN Endo/ExocxCLINICAL FINDINGS normal examCLINICAL DIAGNOSIS Screening, low risk (cx) Name Value Range Interpretation Code Description Data Mónica rce(s) Supporting Document(s) Cytology Order SALESPERSON BURIAL NEEDS Pap result LAB SendOut No rmal (applies to non-numeric results) [facility] ID Date Data Source [id number] 02/04/2021 03:03:00 PM [facility] Name Value Range Interpretation Code Description Data Mónica rce(s) Supporting Document(s) HPV Detection,High Risk result Negative N ormal (applies to non-numeric results) [facility] Test Performed By: [facility] [address] [place] [address] Director: Tolu Bradley MD . No E6 or E7 mRNA is detected from HPV types 16,18,31,33,35,39,45,51,52,56,58,59,66, and 68 by nucleic acid amplification. ID Date Data Source [id number] 02/04/2021 02:35:00 PM [facility] Name Value Range Interpretation Code Description Data Mónica rce(s) Supporting Document(s) HPV Detection,High Risk Types Negative No rmal (applies to non-numeric results) [facility] Test Performed By: [facility] [address] [place] [address] Director: Tolu Bradley MD . No E6 or E7 mRNA is detected from HPV types 16,18,31,33,35,39,45,51,52,56,58,59,66, and 68 by nucleic acid amplification. ID Date Data Source [id number] 02/07/2021 06:46:00 PM [facility] Name Value Range Interpretation Code Description Data Mónica rce(s) Supporting Document(s) ID Date Data Source [id number] 11/17/2020 01:50:00 PM EDT [facility] (Peterson Schneider MD) Name Value Range Interpretation Code Description Data Mónica rce(s) Supporting Document(s) Hepatitis C virus RNA [Units/volume] (vi ral load) in Serum or Plasma by Probe with amplification Laboratory test result Normal (applies t o non-numeric results) [facility] (Peterson Schneider MD) Negative: HCV RNA Not Detected Performed at: [address] [id number] [employer] Laborer: Maureen San MD, Phone: [phone] ID Date Data Source [id number] 11/17/2020 01:50:00 PM EDT [facility] (Peterson Schneider MD) Name Value Range Interpretation Code Description Data Mónica rce(s) Supporting Document(s) Laboratory test finding (navigational concept) Laboratory test r esult Above high normal [facility] (Peterson Schneider MD) <content>This screening test for Hepatit is C Virus was above the 1.0</content>
<content>cutoff index value and will be sent to reference lab</content>
<content>Laboratory [facility], [address] [place], [place] [address]charissa Peguero,</content>
<content>[place] [address] for Hep C RNA ALEXIS testing to [...] (Peterson Schneider MD) ID Date Data Source [id number] 11/17/2020 01:50:00 PM EDT [facility] (Peterson Schneider [...] -18 Normal (applies to non-numeric results) [facility] (Petersno Schneider MD) Laboratory test finding (navigational concept) [...] Little GFR Left</content>
<content>ESRD GFR <15 on BURRER HAND</content>
<content></content> Laboratory test finding (navigational concept) 138 meq/L 1 36-145 Normal (applies to non-numeric results) [facility] (Peterson Schneider MD) Laboratory test finding (navigational concept) 105 meq/L 9 8-107 Normal (applies to non-numeric results) [facility] (Peterson Schneider MD) Laboratory test finding (navigational [...] (Peterson Schneider MD) ID Date Data Source [id number] 11/17/2020 01:50:00 PM EDT [facility] (Peterson Schneider [...] (Peterson Schneider MD) ID Date Data Source [id number] 11/17/2020 01:50:00 PM EDT [facility] (Peterson Schneider [...] (Peterson Schneider MD) ID Date Data Source [id number] 10/13/2020 07:21:00 AM EDT [facility] Name Value Range Interpretation Code Description Data Mónica rce(s) Supporting Document(s) White Blood Count 4.8-10.8 Normal (applies to non-numeri c results) [facility] Red Blood Count 3.68-5.22 Below low normal [facility] Hemoglobin 11.2-15.7 Below low normal [facility] Hematocrit 34.1-44.9 Below low normal [facility] Mean Corpuscular Volume 81-99 Normal (applies to non- numeric results) [facility] Mean Corpuscular Hemoglobin 27.0-33.0 Normal (appli es to non-numeric results) [facility] Mean Corpuscular HGB Conc 32.0-36.0 Normal (applies to no n-numeric results) [facility] Red Cell Distribution Width 11.5-14.5 Above high normal [facility] Platelet Count 319 X10 3/uL 130-450 Normal (applies to non-numeric results) [facility] Mean Platelet Volume 9.5-12.7 Normal (applies to non-num vicente results) [facility] Imm Grans% (AUTO) 1 % 0-2 Normal (applies to non-numeri c results) [facility] Neutrophils % (AUTO) 64 % 40-75 Normal (applies to non-num vicente results) [facility] Lymphocytes % (AUTO) 31 % 21-46 Normal (applies to non-num vicente results) [facility] Monocytes % (AUTO) 2 % 5-12 Below low normal [facility] Eosinophils % (AUTO) 2 % 1-5 Normal (applies to non-num vicente results) [facility] Basophils % (AUTO) 0 % 0-1 Normal (applies to non-numer ic results) [facility] Imm Grans# (AUTO) 0.0-0.5 Normal (applies to non-numeri c results) [facility] Neutrophils # (AUTO) 1.5-8.1 Normal (applies to non-num vicente results) [facility] Lymphocytes # (AUTO) 1.0-3.1 Normal (applies to non-num vicente results) [facility] Monocytes # (AUTO) 0.2-1.3 Normal (applies to non-numer ic results) [facility] Eosinophils# (AUTO) 0.0-0.5 Normal (applies to non-nume kolton results) [facility] Basophils # (AUTO) 0.0-0.1 Normal (applies to non-numer ic results) [facility] ID Date Data Source [id number] 10/12/2020 07:59:[address] [facility] Name Value Range Interpretation Code Description Data Mónica rce(s) Supporting Document(s) White Blood Count 4.8-10.8 Above high normal [facility] Red Blood Count 3.68-5.22 Below low normal [facility] Hemoglobin 11.2-15.7 Below low normal [facility] Hematocrit 34.1-44.9 Below low normal [facility] Mean Corpuscular Volume 81-99 Normal (applies to non- numeric results) [facility] Mean Corpuscular Hemoglobin 27.0-33.0 Normal (appli es to non-numeric results) [facility] Mean Corpuscular HGB Conc 32.0-36.0 Normal (applies to no n-numeric results) [facility] Red Cell Distribution Width 11.5-14.5 Above high normal [facility] Platelet Count 328 X10 3/uL 130-450 Normal (applies to non-numeric results) [facility] Mean Platelet Volume 9.5-12.7 Normal (applies to non-num vicente results) [facility] Imm Grans% (AUTO) 1 % 0-2 Normal (applies to non-numeri c results) [facility] Neutrophils % (AUTO) 77 % 40-75 Above high normal [facility] Lymphocytes % (AUTO) 20 % 21-46 Below low normal [facility] Monocytes % (AUTO) 2 % 5-12 Below low normal [facility] Eosinophils % (AUTO) 0 % 1-5 Below low normal [facility] Basophils % (AUTO) 0 % 0-1 Normal (applies to non-numer ic results) [facility] Imm Grans# (AUTO) 0.0-0.5 Normal (applies to non-numeri c results) [facility] Neutrophils # (AUTO) 1.5-8.1 Above high normal [facility] Lymphocytes # (AUTO) 1.0-3.1 Normal (applies to non-num vicente results) [facility] Monocytes # (AUTO) 0.2-1.3 Normal (applies to non-numer ic results) [facility] Eosinophils# (AUTO) 0.0-0.5 Normal (applies to non-nume kolton results) [facility] Basophils # (AUTO) 0.0-0.1 Normal (applies to non-numer ic results) [facility] ID Date Data Source [id number] 10/11/2020 07:27:00 PM EDT [facility] Collected By: Nurse Initials: EB Time Collected: 1510 Reference Range: MRSA target DNA not detected, presumed not MRSA colonizedNot detected Name Value Range Interpretation Code Description Data Mónica rce(s) Supporting Document(s) ID Date Data Source [id number] 10/13/2020 02:53:00 PM EDT [facility] Name Value Range Interpretation Code Description Data Mónica rce(s) Supporting Document(s) ID Date Data Source [id number] 10/15/2020 08:12:00 AM EDT [facility] Name Value Range Interpretation Code Description Data Mónica rce(s) Supporting Document(s) Buprenorphine+Nor QL,Urine . Very abnormal (appli es to non-numeric units [facility] Confirmation performed by Mass Spectrome try Buprenorphine QL,Ur Confirm . Very abnormal (appl ies to non-numeric units [facility] Buprenorphine Qnt,Ur Confirm 340 ng/mL Cutoff=10 Nor mal (applies to non-numeric results) [facility] Norbuprenorphine QL,Ur Cfm . Very abnormal (appli es to non-numeric units [facility] Norbuprenorphine Qnt,Ur Cfm Cutoff=10 Normal (appli es to non-numeric results) [facility] Performed at: [facility] Lab[address] [id number] [employer] Laborer: Gavi Sanchez MD, Phone: [phone] ID Date Data Source [id number] 10/13/2020 09:52:00 AM EDT [facility] Name Value Range Interpretation Code Description Data Mónica rce(s) Supporting Document(s) Group B culture [facility] ID Date Data Source [id number] 10/12/2020 04:37:00 PM EDT [facility] Name Value Range Interpretation Code Description Data Mónica rce(s) Supporting Document(s) Lead,Blood (Venous) result <5.0 Normal (applies to n on-numeric results) [facility] ADDITIONAL INFORMATIO N Testing performed by Inductively Coupled Plasma-Mass Spectrometry (ICP-MS). This test was developed and its performance characteristics determined by [facility] in a manner consistent with CLIA requirements. This test has not been cleared or approved by the U.S. Food and Drug Administration. PB Patient Street Normal (applies to non-nume kolton results) [facility] Patient [facility] Normal (applies to non-numeri c results) [facility] Patient State Normal (applies to non-numer ic results) [facility] Patient Zip [address] Normal (applies to non-numeric results) [facility] Patient [facility] Normal (applies to non-nume kolton results) [facility] Phone [phone] Normal (applies to non-nume kolton results) [facility] Race Normal (applies to non-numeri c results) [facility] Patient Ethnicity Normal (applies to non-n umeric results) [facility] Patient Occupation Normal (applies to non- numeric results) [facility] Patient Employer Normal (applies to non-nu meric results) [facility] Guardian Name,First Normal (applies to non -numeric results) [facility] Guardian Name,Last Normal (applies to non- numeric results) [facility] Provider Name Normal (applies to non-numer ic results) [facility] Provider Street Normal (applies to non-num vicente results) [facility] PBDV Provider City Normal (applies to non-numer ic results) [facility] PBDV Provider State Normal (applies to non-nume kolton results) [facility] Provider Zip [address] Normal (applies to non-numeri c results) [facility] Provider Phone [phone] Normal (applies to non-num vicente results) [facility] Sub[facility] Phone [phone] Normal (applies to non-numeric results) [facility] Test Performed by: [facility] [address] [place] [address] [employer] Laborer: Pedro Burns M.D. Ph.D.; CLIA# [id number] ID Date Data Source [id number] 10/11/2020 02:07:00 PM EDT [facility] Name Value Range Interpretation Code Description Data Mónica rce(s) Supporting Document(s) Bupren Scrn,Ur wRfx LCI SO res Negative [facility] Therapeutic Drug Threshold for Buprenorp avis: 5 ng/mL All positive findings are presumptive and unconfirmed. Confirmation of positive Buprenorphine is automatically reflexed and sent to reference laboratory. Unconfirmed results must not be used for non-medical purposes (i.e. pre-employment and legal purposes) ID Date Data Source [id number] 10/11/2020 11:16:00 AM EDT [facility] Name Value Range Interpretation Code Description Data Mónica rce(s) Supporting Document(s) BLOOD TYPE PATIENT O Positive Normal (applies to non-numer ic results) [facility] ANTIBODY SCREEN NEGATIVE Normal (applies to non-numeric results) [facility] ID Date Data Source [id number] 10/11/2020 10:24:[address] [facility] Name Value Range Interpretation Code Description Data Mónica rce(s) Supporting Document(s) Opiate Screen,Urine Negative Normal (applies to non-nume kolton results) [facility] Barbiturate Screen,Urine Negative Normal (applies to non -numeric results) [facility] Benzodiazepines Scrn,Ur result Negative N ormal (applies to non-numeric results) [facility] Cocaine Screen,Urine Negative [facility] Cannabinoid Screen, Ur Negative Normal (applies to non-n umeric results) [facility] Therapeutic Drug Ranges for Emergency an d Rehabilitation Threshold Levels (ng/mL) Cocaine 300 Opiates 300 Cannabinoids 50 Barbiturates 200 Benzodiazepine 200 Methadone 300 Amphetamines 1000 All positive findings are presumptive and unconfirmed. Confirmation of positive results are performed only at request of provider. Unconfirmed results must not be used for non-medical purposes (i.e. pre-employment and legal purposes) ID Date Data Source [id number] 10/11/2020 10:19:00 AM EDT [facility] Name Value Range Interpretation Code Description Data Mónica rce(s) Supporting Document(s) Color,Urine Yellow [facility] pital Clarity,Urine Clear Normal (applies to non-numeric re sults) [facility] Specific [place],Urine 1.001-1.030 Normal (applies to non- numeric results) [facility] PH,Urine 5.0-8.0 Normal (applies to non-numeric resul ts) [facility] Protein,Urine Negative [facility] ospital Glucose,Urine (UA) Negative Normal (applies to non-numer ic results) [facility] Ketones,Urine Negative [facility] ospital Blood,Urine Negative Normal (applies to non-numeric resu lts) [facility] Bilirubin,Urine Negative [facility] Positive Bilirubin is no longer doublech ecked. Bilirubin may be elevated due to urine color interference. Urobilinogen,Urine Norm 0.2-1 Normal (applies to non-numer ic results) [facility] Leukocyte Esterase,Urine Negative [facility] Nitrite,Urine Negative Normal (applies to non-numeric re sults) [facility] ID Date Data Source [id number] 10/11/2020 10:19:00 AM EDT [facility] Name Value Range Interpretation Code Description Data Mónica rce(s) Supporting Document(s) WBC,URINE 0-10 Normal (applies to non-numeric resul ts) [facility] RBC,Urine 0-2 Normal (applies to non-numeric resul ts) [facility] Hyaline Casts,Ur None Seen Normal (applies to non-numeric results) [facility] Bacteria,Urine None Seen Normal (applies to non-numeric r esults) [facility] Epithelial Cell,Ur None-Few Normal (applies to non-numer ic results) [facility] Renal Tubular Cell, Ur None Seen [facility] ID Date Data Source [id number] 10/13/2020 07:54:00 PM EDT [facility] Name Value Range Interpretation Code Description Data Mónica rce(s) Supporting Document(s) Varicella-Zoster IgG,S result Normal (applies t o non-numeric results) [facility] Results suggest response to immunization or prior exposure to the virus. REFERENCE VALUE Vaccinated: Positive (>=1.1 AI) Unvaccinated: Negative (<=0.8 AI) Varicella-Zoster IgG,S Index Normal (applies to non-numeric results) [facility] Test Performed by: [place] [address] [employer] Laborer: Pedro Burns M.D. Ph.D.; CLIA# [id number] Varicella-Zoster IgM,S result Negative No rmal (applies to non-numeric results) [facility] ID Date Data Source [id number] 10/11/2020 04:51:00 PM EDT [facility] Name Value Range Interpretation Code Description Data Mónica rce(s) Supporting Document(s) HIV 1/2 Ab p24 Ag Screen Nonreactive Normal (applies to non-numeric results) [facility] ID Date Data Source [id number] 10/11/2020 10:20:[address] [facility] Interpretation of Result s Less than 5.0 IU/mL - Negative for IgG antibodies to Rubella virus 5.0 - 9.9 IU/mL - Equivocal. Suggest repeat testing on new sample 10.0 IU/mL or greater - Positive for IgG antibodies to Rubella virus Name Value Range Interpretation Code Description Data Mónica rce(s) Supporting Document(s) Hep C Ab-T Test Nonreactive [facility] Specimen sent to Reference Lab for confi rmation of result. Separate report to follow. ID Date Data Source [id number] 10/11/2020 10:20:[address] [facility] Interpretation of Result s Less than 5.0 IU/mL - Negative for IgG antibodies to Rubella virus 5.0 - 9.9 IU/mL - Equivocal. Suggest repeat testing on new sample 10.0 IU/mL or greater - Positive for IgG antibodies to Rubella virus Name Value Range Interpretation Code Description Data Mónica rce(s) Supporting Document(s) ID Date Data Source [id number] 10/11/2020 10:20:[address] [facility] Interpretation of Result s Less than 5.0 IU/mL - Negative for IgG antibodies to Rubella virus 5.0 - 9.9 IU/mL - Equivocal. Suggest repeat testing on new sample 10.0 IU/mL or greater - Positive for IgG antibodies to Rubella virus Name Value Range Interpretation Code Description Data Mónica rce(s) Supporting Document(s) ID Date Data Source [id number] 10/11/2020 10:12:[address] [facility] Name Value Range Interpretation Code Description Data Mónica rce(s) Supporting Document(s) Syphilis Serology Nonreactive Normal (applies to non-numer ic results) [facility] ID Date Data Source [id number] 10/11/2020 09:14:00 AM EDT [facility] Name Value Range Interpretation Code Description Data Mónica rce(s) Supporting Document(s) Sodium 138 mmol/L 137-145 Normal (applies to non-numeric resul ts) [facility] Potassium 3.5-5.1 Normal (applies to non-numeric resul ts) [facility] Chloride 105 mmol/L 98-112 Normal (applies to non-numeric resul ts) [facility] Carbon Dioxide CO2 22.0-33.0 Normal (applies to non-numer ic results) [facility] Anion Gap 4.0-11.0 Normal (applies to non-numeric resul ts) [facility] BUN 5 mg/dL 7-17 Below low normal [facility] Creatinine 0.70-1.20 Below low normal [facility] GFR >60 Normal (applies to non-numeric results) [facility] Result based on MDRD formula. Glucose Level 74 mg/dL 74-99 Normal (applies to non-numeric re sults) [facility] The reference range is only applicable w hen fasting. Calcium-Uncorrected 8.4-10.2 Normal (applies to non-nume kolton results) [facility] Corrected Calcium 8.4-10.2 Normal (applies to non-numeri c results) [facility] Bilirubin,Total 0.2-1.3 Normal (applies to non-numeric results) [facility] SGOT(AST) 21 U/L 14-36 Normal (applies to non-numeric resul ts) [facility] SGPT(ALT) 11 U/L 9-52 Normal (applies to non-numeric resul ts) [facility] Alkaline Phosphatase 132 U/L 38-126 Above high normal [facility] can increase Alkaline Phosp le vels up to 2 times the normal adult value. Normal values for children and adolescents are 2 to 3 times the normal adult value. Total Protein 6.3-8.[address] [facility] Albumin 3.5-5.0 Below low normal [facility] ID Date Data Source [id number] 10/11/2020 09:14:00 AM EDT [facility] Name Value Range Interpretation Code Description Data Mónica rce(s) Supporting Document(s) Thyroid Stimulate Hormone TSH 0.358-3.740 No rmal (applies to non-numeric results) [facility] ID Date Data Source [id number] 10/11/2020 08:56:[address] [facility] Name Value Range Interpretation Code Description Data Mónica rce(s) Supporting Document(s) White Blood Count 4.8-10.8 Above high normal [facility] Red Blood Count 3.68-5.22 Below low normal [facility] Hemoglobin 11.2-15.7 Below low normal [facility] Hematocrit 34.1-44.9 Below low normal [facility] Mean Corpuscular Volume 81-99 Normal (applies to non- numeric results) [facility] Mean Corpuscular Hemoglobin 27.0-33.0 Normal (appli es to non-numeric results) [facility] Mean Corpuscular HGB Conc 32.0-36.0 Normal (applies to no n-numeric results) [facility] Red Cell Distribution Width 11.5-14.5 Above high normal [facility] Platelet Count 310 X10 3/uL 130-450 Normal (applies to non-numeric results) [facility] Mean Platelet Volume 9.5-12.7 Normal (applies to non-num vicente results) [facility] Imm Grans% (AUTO) 0 % 0-2 Normal (applies to non-numeri c results) [facility] Neutrophils % (AUTO) 90 % 40-75 Above high normal [facility] Lymphocytes % (AUTO) 8 % 21-46 Below low normal [facility] Monocytes % (AUTO) 2 % 5-12 Below low normal [facility] Eosinophils % (AUTO) 0 % 1-5 Below low normal [facility] Basophils % (AUTO) 0 % 0-1 Normal (applies to non-numer ic results) [facility] Imm Grans# (AUTO) 0.0-0.5 Normal (applies to non-numeri c results) [facility] Neutrophils # (AUTO) 1.5-8.1 Above high normal [facility] Lymphocytes # (AUTO) 1.0-3.1 Normal (applies to non-num vicente results) [facility] Monocytes # (AUTO) 0.2-1.3 Normal (applies to non-numer ic results) [facility] Eosinophils# (AUTO) 0.0-0.5 Normal (applies to non-nume kolton results) [facility] Basophils # (AUTO) 0.0-0.1 Normal (applies to non-numer ic results) [facility] ID Date Data Source [id number] 10/11/2020 07:10:00 AM EDT [facility] Name Value Range Interpretation Code Description Data Mónica rce(s) Supporting Document(s) Respiratory specimen severe acute respir atory syndrome coronavirus 2 (SARS-CoV-2) RNA Negative (qualifier value) [facility] This lab was ordered by [facility] kylah and reported by [facility]. ID Date Data Source [id number] 10/11/2020 09:10:00 AM EDT [facility] Negative results should be treated as pr [...] Certificate of Accreditation. Factsheets for healthcare providers: https://www.fda.gov/media/954822/download Factsheets for patients: https://www.fda.gov/media/950798/download The ID NOW Instrument is a rapid molecular in vitro diagnostic test utilizing an isothermal nucleic acid amplification technology intended for the qualitative detection of nucleic acid from the SARS-CoV-2 viral RNA. THIS IS A STATE REPORTABLE COMMUNICABLE DISEASE. Manual entry verified by Nahum Bowens 10/11/20 0910 Test Performed By: [facility] [address] [place] [address] Director: Tolu Bradley MD Name Value Range Interpretation Code Description Data Mónica rce(s) Supporting Document(s) ID Date Data Source [id number] 10/14/2020 09:31:00 AM EDT [facility] Name Value Range Interpretation Code Description Data Mónica rce(s) Supporting Document(s) HCV RNA Detect/Quant,S result Undetected No rmal (applies to non-numeric results) [facility] Result in log IU/mL is Undetected. ---- ADDITIONAL INFORMATION The quantification range of this assay is 15 to 100,000,000 IU/mL (1.18 log to 8.00 log IU/mL). Testing was performed using the missy HCV test ([employer] with the missy [employer] System. Test Performed by: [facility] [address] [place] [address] [employer] T[employer] Laborer: Pdero Burns M.D. Ph.D.; CLIA# [id number] ID Date Data Source [id number] 09/22/2020 04:17:00 PM EDT [facility] Name Value Range Interpretation Code Description Data Mónica rce(s) Supporting Document(s) UDS10 Note . Normal (applies to non-numeric resul ts) [facility] This assay provides a preliminary unconf irmed analytical test result that may be suitable for clinical management of patients in certain situations. Drug- test results should be interpreted in the context of clinical information. Patient metabolic variables, specific drug chemistry, and specimen characteristics can affect test outcome. Technical consultation is available if a test result is inconsistent with an expected outcome. (email- [email or web address] or call toll-free [phone]) Performed at: [facility] [employer] [id number] [employer] T[employer] Laborer: Gavi Sanchez MD, Phone: [phone] Amphetamines,UDS10 Avwlbo=7931 Normal (applies to non-nume kolton results) [facility] Barbiturates,UDS10 Ttyswi=951 Normal (applies to non-numer ic results) [facility] Benzodiazepines,UDS10 Tumcdr=652 Normal (applies to non-nu meric results) [facility] Cannabinoid,UDS10 Cutoff=20 Normal (applies to non-numeri c results) [facility] Cocaine,UDS10 Varwcj=049 Very abnormal (applies to non-num vicente units [facility] Opiates,UDS10 Dyfwsg=668 Normal (applies to non-numeric re sults) [facility] Opiate test includes Codeine, Morphine, Hydromorphone, Hydrocodone. Oxyco/Oxymorphone,UDS10 Tmddbp=053 Normal (applies to non- numeric results) [facility] Test includes Oxycodone and Oxymorphone Phencyclidine,UDS10 Cutoff=25 Normal (applies to non-nume kolton results) [facility] Methadone,UDS10 Blpmyg=096 Normal (applies to non-numeric results) [facility] Propoxyphene,UDS10 Wmdrki=880 Normal (applies to non-numer ic results) [facility] Buprenorphine,UDS10 Cutoff=10 Very abnormal (applies to n on-numeric units [facility] Creatinine,UDS10 20.0-300.0 Normal (applies to non-numeric results) [facility] pH,UDS10 4.5-8.9 Normal (applies to non-numeric resul ts) [facility] ID Date Data Source [id number] 09/22/2020 04:17:00 PM EDT [facility] Name Value Range Interpretation Code Description Data Mónica rce(s) Supporting Document(s) Buprenorphine+Nor QL,Urine . Very abnormal (appli es to non-numeric units [facility] Confirmation performed by Mass Spectrome try Buprenorphine QL,Ur Confirm . Very abnormal (appl ies to non-numeric units [facility] Buprenorphine Qnt,Ur Confirm 18 ng/mL Cutoff=10 Nor mal (applies to non-numeric results) [facility] Norbuprenorphine QL,Ur Cfm . Very abnormal (appli es to non-numeric units [facility] Norbuprenorphine Qnt,Ur Cfm 213 ng/mL Cutoff=10 Norm al (applies to non-numeric results) [facility] Performed at: [address] [id number] [employer] Laborer: Gavi Sanchez MD, Phone: [phone] ID Date Data Source [id number] 09/15/2020 02:10:00 PM EDT [facility] Name Value Range Interpretation Code Description Data Mónica rce(s) Supporting Document(s) Bupren Scrn,Ur wRfx LCI SO res Negative [facility] Therapeutic Drug Threshold for Buprenorp avis: 5 ng/mL All positive findings are presumptive and unconfirmed. Confirmation of positive Buprenorphine is automatically reflexed and sent to reference laboratory. Unconfirmed results must not be used for non-medical purposes (i.e. pre-employment and legal purposes) ID Date Data Source [id number] 09/09/2020 11:41:00 PM EDT [facility] Name Value Range Interpretation Code Description Data Mónica rce(s) Supporting Document(s) Amphetamines,UDS9 Jfoail=2763 Normal (applies to non-numer ic results) [facility] Amphetamine test includes Amphetamine an d Methamphetamine. Barbiturates,UDS9 Xldtch=694 Normal (applies to non-numeri c results) [facility] Benzodiazepines,UDS9 Oumoya=702 Normal (applies to non-num vicente results) [facility] Cannabinoid,UDS9 Cutoff=50 Normal (applies to non-numeric results) [facility] Cocaine,UDS9 Rgyozy=995 Very abnormal (applies to non-nume kolton units [facility] Benzoylecgonine GC/MS Con >3000 ng/mL Rxwnqv=363 01 Opiates,UDS9 Tjhlrv=953 Normal (applies to non-numeric res ults) [facility] Opiate test includes Codeine and Morphin e only. Phencyclidine,UDS9 Cutoff=25 Normal (applies to non-numer ic results) [facility] Methadone,UDS9 Crxzhc=847 Normal (applies to non-numeric r esults) [facility] Propoxyphene,UDS9 Cpruam=860 Normal (applies to non-numeri c results) [facility] Performed at: RN - [facility] [address] [id number] [employer] Laborer: Gavi Sanchez MD, Phone: [phone] ID Date Data Source [id number] 07/31/2020 12:38:00 PM EDT [facility] Name: AUGUSTO RIVERA Salome : Age/Sex: 29F Ordering Provider: Manny Hines MD Med Rec #: [id number] Reg Status: DIS IN Room #: 360-2 Date of Service: 07/30/20 Report Number: [id number] cc:Manny Hines MD; Rachelle Dunlap MD Send Report To: [id number] US/US Bio-Physical Profile Reason for exam: bleeding, [...] Date/Time: 07/30/20 1514 Transcribed Date/Time: 07/31/20 1238 Order To Delivery Supervisor: EDUARD Name Value Range Interpretation Code Description Data Mónica rce(s) Supporting Document(s) ID Date Data Source [id number] 08/02/2020 12:23:00 PM EDT [facility] Name Value Range Interpretation Code Description Data Mónica rce(s) Supporting Document(s) Varicella-Zoster IgG Ab,S res See Note No rmal (applies to non-numeric results) [facility] Presence of detectable Varicella Zoster virus IgG antibodies. Test performed or referred by [facility] [address] [place] [address] ID Date Data Source [id number] 08/02/2020 12:23:00 PM EDT [facility] Name Value Range Interpretation Code Description Data Mónica rce(s) Supporting Document(s) Rubella Antibody,IgM result 0.0-19.9 Normal (appli es to non-numeric results) [facility] Negative <20.0 Equivocal 20.0 - 24.9 Positive >24.9 Performed at: RN - [facility] [address] [id number] [employer] T[employer] Laborer: Gavi Sanchez MD, Phone: [phone] ID Date Data Source [id number] 07/29/2020 07:50:00 PM EDT [facility] Name Value Range Interpretation Code Description Data Mónica rce(s) Supporting Document(s) HIV 1/2 Ab p24 Ag Screen Nonreactive Normal (applies to non-numeric results) [facility] ID Date Data Source [id number] 07/29/2020 07:04:[address] [facility] Name Value Range Interpretation Code Description Data Mónica rce(s) Supporting Document(s) Sodium 139 mmol/L 137-145 Normal (applies to non-numeric resul ts) [facility] Potassium 3.5-5.1 Normal (applies to non-numeric resul ts) [facility] Chloride 106 mmol/L 98-112 Normal (applies to non-numeric resul ts) [facility] Carbon Dioxide CO2 22.0-33.0 Normal (applies to non-numer ic results) [facility] Anion Gap 4.0-11.0 Normal (applies to non-numeric resul ts) [facility] BUN 6 mg/dL 7-17 Below low normal [facility] Creatinine 0.70-1.20 Below low normal [facility] GFR >60 Normal (applies to non-numeric results) [facility] Result based on MDRD formula. Glucose Level 71 mg/dL 74-[address] [facility] The reference range is only applicable w hen fasting. Calcium-Uncorrected 8.4-10.2 Below low normal [facility] Corrected Calcium 8.4-10.2 Normal (applies to non-numeri c results) [facility] Bilirubin,Total 0.2-1.3 Below low normal [facility] SGOT(AST) 13 U/L 14-36 Below low normal [facility] SGPT(ALT) 14 U/L 9-52 Normal (applies to non-numeric resul ts) [facility] Alkaline Phosphatase 51 U/L 38-126 Normal (applies to non-num vicente results) [facility] can increase Alkaline Phosp le vels up to 2 times the normal adult value. Normal values for children and adolescents are 2 to 3 times the normal adult value. Total Protein 6.3-8.2 Normal (applies to non-numeric re sults) [facility] Albumin 3.5-5.0 Below low normal [facility] ID Date Data Source [id number] 07/29/2020 06:58:[address] [facility] Name Value Range Interpretation Code Description Data Mónica rce(s) Supporting Document(s) PT 9.4-12.5 Normal (applies to non-numeric results) [facility] INR Normal (applies to non-numeric results) [facility] The use of the INR is restricted to manfred ents on stable oral anticoagulant. Therapeutic Range: 2.0-3.0 High Risk Values: 2.5-3.5 ID Date Data Source [id number] 07/29/2020 06:58:[address] [facility] Name Value Range Interpretation Code Description Data Mónica rce(s) Supporting Document(s) PTT 25.1-36.5 Normal (applies to non-numeric resul ts) [facility] ID Date Data Source [id number] 07/29/2020 06:58:[address] [facility] Name Value Range Interpretation Code Description Data Mónica rce(s) Supporting Document(s) Fibrinogen 366 mg/dL 173-454 Normal (applies to non-numeric resul ts) [facility] ID Date Data Source [id number] 07/29/2020 05:58:00 PM EDT [facility] Name Value Range Interpretation Code Description Data Mónica rce(s) Supporting Document(s) Color,Urine Yellow Normal (applies to non-numeric resu lts) [facility] Clarity,Urine Clear Normal (applies to non-numeric re sults) [facility] Specific [place],Urine 1.001-1.030 Normal (applies to non- numeric results) [facility] PH,Urine 5.0-8.0 Normal (applies to non-numeric resul ts) [facility] Protein,Urine Negative Normal (applies to non-numeric re sults) [facility] Glucose,Urine (UA) Negative Normal (applies to non-numer ic results) [facility] Ketones,Urine Negative Normal (applies to non-numeric re sults) [facility] Blood,Urine Negative Normal (applies to non-numeric resu lts) [facility] Bilirubin,Urine Negative Normal (applies to non-numeric results) [facility] Urobilinogen,Urine Norm 0.2-1 Normal (applies to non-numer ic results) [facility] Leukocyte Esterase,Urine Negative Normal (applies to non -numeric results) [facility] Nitrite,Urine Negative [facility] ID Date Data Source [id number] 07/29/2020 05:58:00 PM EDT [facility] Name Value Range Interpretation Code Description Data Mónica rce(s) Supporting Document(s) RBC,Auto Urine 0-2 Normal (applies to non-numeric r esults) [facility] WBC Urine Auto 0-10 Normal (applies to non-numeric r esults) [facility] Casts,Hyaline,Urine Auto 0-2 Normal (applies to non -numeric results) [facility] Bacteria Urine Auto None Seen [facility] Epithelial Cell Ur Auto None-Few Normal (applies to non- numeric results) [facility] ID Date Data Source [id number] 07/29/2020 05:05:00 PM EDT [facility] Name Value Range Interpretation Code Description Data Mónica rce(s) Supporting Document(s) Color,Urine Yellow Normal (applies to non-numeric resu lts) [facility] Clarity,Urine Clear Normal (applies to non-numeric re sults) [facility] Specific [place],Urine 1.001-1.030 Normal (applies to non- numeric results) [facility] PH,Urine 5.0-8.0 Normal (applies to non-numeric resul ts) [facility] Protein,Urine Negative Normal (applies to non-numeric re sults) [facility] Glucose,Urine (UA) Negative Normal (applies to non-numer ic results) [facility] Ketones,Urine Negative Normal (applies to non-numeric re sults) [facility] Blood,Urine Negative [facility] pital Bilirubin,Urine Negative Normal (applies to non-numeric results) [facility] Urobilinogen,Urine Norm 0.2-1 Normal (applies to non-numer ic results) [facility] Leukocyte Esterase,Urine Negative [facility] Nitrite,Urine Negative Normal (applies to non-numeric re sults) [facility] ID Date Data Source [id number] 07/29/2020 05:05:00 PM EDT [facility] Name Value Range Interpretation Code Description Data [facility] rce(s) Supporting Document(s) RBC,Auto Urine 0-2 [facility] WBC Urine Auto 0-10 Normal (applies to non-numeric r esults) [facility] Casts,Hyaline,Urine Auto 0-2 Normal (applies to non -numeric results) [facility] Bacteria Urine Auto None Seen [facility] Epithelial Cell Ur Auto None-Few Normal (applies to non- numeric results) [facility] ID Date Data Source [id number] 07/29/2020 04:57:[address] [facility] Name Value Range Interpretation Code Description Data Mónica rce(s) Supporting Document(s) Opiate Screen,Urine Negative Normal (applies to non-nume kolton results) [facility] Barbiturate Screen,Urine Negative Normal (applies to non -numeric results) [facility] Benzodiazepines Scrn,Ur result Negative N ormal (applies to non-numeric results) [facility] Cocaine Screen,Urine Negative Normal (applies to non-num vicente results) [facility] Cannabinoid Screen, Ur Negative Normal (applies to non-n umeric results) [facility] Therapeutic Drug Ranges for Emergency an d Rehabilitation Threshold Levels (ng/mL) Cocaine 300 Opiates 300 Cannabinoids 50 Barbiturates 200 Benzodiazepine 200 Methadone 300 Amphetamines 1000 All positive findings are presumptive and unconfirmed. Confirmation of positive results are performed only at request of provider. Unconfirmed results must not be used for non-medical purposes (i.e. pre-employment and legal purposes) ID Date Data Source [id number] 07/30/2020 05:38:00 AM EDT [facility] Name: AUGUSTO RIVERA : Age/Sex: 29F Ordering Provider: Bran Montes MD Med Rec #: [id number] Reg Status: DIS IN Room #: 360-2 Date of Service: 07/29/20 Report Number: [id number] cc:Rachelle Dunlap MD; Bran Montes MD Send Report To: ADDENDUM The placenta is anterior grade 2. There are placental lakes identified on the aspect of the placenta. No previa or abruption. ADDENDUM SIGNATURE ON FILE Reported By: Nahum Murrell DO <Electronically signed by Nahum Murrell DO> 08/02/20 1141 Dictation Date/Time: 07/30/20 4193 Transcribed Date/Time: 07/31/20 1246 Order To Delivery Supervisor: ADRIAN [id number] US/US Bio-Physical Profile Reason for exam: wellbeing [...] Dictation Date/Time: 07/29/20 1705 Transcribed Date/Time: 07/30/20 0505 Order To Delivery Supervisor: CARMELITA Name Value Range Interpretation Code Description Data Mónica rce(s) Supporting Document(s) ID Date Data Source [id number] 07/29/2020 01:04:00 PM EDT [facility] Name Value Range Interpretation Code Description Data Mónica rce(s) Supporting Document(s) SARS-CoV-2 (COVID-19) RNA [Presence] in Respiratory specimen by ALEXIS with probe detection Negative; No COVID-2 RNA detected by PCR. [facility] This lab was ordered by [facility] and reported by . ID Date Data Source [id number] 06/17/2020 04:20:00 AM EDT [facility]. OB ULTRASOUNDComparison is made to [...] rce(s) Supporting Document(s) ID Date Data Source [id number] 06/12/2020 12:03:00 PM EDT [facility] Name Value Range Interpretation Code Description Data Mónica rce(s) Supporting Document(s) Opiate Screen,Urine Negative Normal (applies to non-nume kolton results) [facility] Amphetamine Screen,Urine Negative Normal (applies to non -numeric results) [facility] Benzodiazepines Scrn,Ur result Negative N ormal (applies to non-numeric results) [facility] Cocaine Screen,Urine Negative Normal (applies to non-num vicente results) [facility] Methadone Screen,Urine Negative Normal (applies to non-n umeric results) [facility] Cannabinoid Screen, Ur Negative Normal (applies to non-n umeric results) [facility] Therapeutic Drug Ranges for Emergency an d Rehabilitation Threshold Levels (ng/mL) Cocaine 300 Opiates 300 Cannabinoids 50 Barbiturates 200 Benzodiazepine 200 Methadone 300 Amphetamines 1000 All positive findings are presumptive and unconfirmed. Confirmation of positive results are performed only at request of provider. Unconfirmed results must not be used for non-medical purposes (i.e. pre-employment and legal purposes) ID Date Data Source [id number] 06/01/2020 06:00:00 AM EST [facility] Name: AUGUSTO RIVERA : Age/Sex: 29F Ordering Provider: NADINE Cherry Med Rec #: [id number] Reg Status:ADM IN Room #: 153-2 Date of Service: 06/01/20 Report Number: [id number] cc: NADINE Cherry Send Report To: Echocardiogram Complete Ordering Phys: Misael BAR, Accession Number: [id number] Exam Date: 06/01/2020 10:27 Indications: EDEMA BP [...] OV> Exam Date/Time: 06/01/20 0600 Order #: [id number] Dictation Date/Time: 06/01/20 1027 Transcribed Date/Time: Order To Delivery Supervisor: Name Value Range Interpretation Code Description Data Mónica rce(s) Supporting Document(s) ID Date Data Source [id number] 05/30/2020 09:59:00 AM EST [facility] Name Value Range Interpretation Code Description Data Mónica rce(s) Supporting Document(s) Respiratory specimen severe acute respir atory syndrome coronavirus 2 (SARS-CoV-2) RNA Negative (qualifier value) [facility] This lab was ordered by [facility] kylah and reported by [facility]. ID Date Data Source [id number] 05/30/2020 11:36:00 AM EST [facility] Name Value Range Interpretation Code Description Data Mónica rce(s) Supporting Document(s) SARS-CoV-2 RNA Negative Normal (applies to non-numeric r esults) [facility] Negative results should be treated as [...] Certificate of Accreditation. Factsheets for healthcare providers: https://www.fda.gov/media/145028/download Factsheets for patients: https://www.fda.gov/media/055067/download The ID NOW Instrument is a rapid molecular in vitro diagnostic test utilizing an isothermal nucleic acid amplification technology intended for the qualitative detection of nucleic acid from the SARS-CoV-2 viral RNA. THIS IS A STATE REPORTABLE COMMUNICABLE DISEASE. Manual entry verified by Nahum Bowens 05/30/20 1135 ID Date Data Source [id number] 05/31/2020 08:17:00 AM [facility] Name: AUGUSTO RIVERA : Age/Sex: 29F Ordering Provider: Brionna KAUR [facility] Rec #: [id number] Reg Status: ADM IN Room #: 153-2 Date of Service: 05/30/20 Report Number: [id number] cc:Brionna KAUR Send Report To: [id number] XRP/XR 2nd Toe Lt Reason for exam: [...] Date/Time: 05/30/20 1109 Transcribed Date/Time: 05/31/20 0817 Order To Delivery Supervisor: CARMELITA Name Value Range Interpretation Code Description Data Mónica rce(s) Supporting Document(s) ID Date Data Source [id number] 05/26/2020 05:49:00 PM [facility] Name Value Range Interpretation Code Description Data Mónica rce(s) Supporting Document(s) Opiate Screen,Urine Negative Normal (applies to non-nume kolton results) [facility] Amphetamine Screen,Urine Negative Normal (applies to non -numeric results) [facility] Benzodiazepines Scrn,Ur result Negative N ormal (applies to non-numeric results) [facility] Cocaine Screen,Urine Negative Normal (applies to non-num vicente results) [facility] Methadone Screen,Urine Negative Normal (applies to non-n umeric results) [facility] Cannabinoid Screen, Ur Negative Normal (applies to non-n umeric results) [facility] Therapeutic Drug Ranges for Emergency an d Rehabilitation Threshold Levels (ng/mL) Cocaine 300 Opiates 300 Cannabinoids 50 Barbiturates 200 Benzodiazepine 200 Methadone 300 Amphetamines 1000 All positive findings are presumptive and unconfirmed. Confirmation of positive results are performed only at request of provider. Unconfirmed results must not be used for non-medical purposes (i.e. pre-employment and legal purposes) ID Date Data Source [id number] 05/24/2020 10:35:00 AM EST [facility] Name: AUGUSTO RIVERA : Age/Sex: 29F Ordering Provider: NADINE Cherry Med Rec #: [id number] Reg Status: ADM IN Room #: 153-2 Date of Service: 05/24/20 Report Number: [id number] cc:NADINE Cherry Send Report To: [id number] XRP/XR Foot Lt Min. 3 Views Reason [...] Date/Time: 05/24/20 0933 Transcribed Date/Time: 05/24/20 1035 Order To Delivery Supervisor: CARMELITA Name Value Range Interpretation Code Description Data Mónica rce(s) Supporting Document(s) ID Date Data Source [id number] 07/08/2020 06:13:[address] [facility] Value Range Interpretation Code Description Data Mónica rce(s) Supporting Document(s) Hepatitis C Antibody Screen Negative Normal (appli es to non-numeric results) [facility] Supplemental testing for HCV RNA is orde red to rule out active HCV infection. Cutepu-yj-pvxjxq ratio is >=1.00 and <8.00. Test Performed by: [place] [address] [employer] Laborer: Pedro Burns M.D. Ph.D.; CLIA# [id number] Hep C Virus Qnt (Rfx'd) Undetected Normal (applies to non- numeric results) [facility] Result in log IU/mL is Undetected. ---- ADDITIONAL INFORMATION The quantification range of this assay is 15 to 100,000,000 IU/mL (1.18 log to 8.00 log IU/mL). Testing was performed using the missy HCV test ([employer] with the missy [employer] System. Test Performed by: [place] [address] [employer] T[employer] Laborer: Pedro Burns M.D. Ph.D.; CLIA# [id number] ID Date Data Source [id number] 07/08/2020 06:13:[address] [facility] Value Range Interpretation Code Description Data Mónica rce(s) Supporting Document(s) HCV RNA Detect/Quant,S result Normal (applies t o non-numeric results) [facility] ID Date Data Source [id number] 05/19/2020 04:00:[address] [facility] Value Range Interpretation Code Description Data Mónica rce(s) Supporting Document(s) Hep Bs Ag Result T-Test Nonreactive Normal (applies to non -numeric results) [facility] ID Date Data Source [id number] 05/19/2020 04:00:00 AM [facility] Name Value Range Interpretation Code Description Data Mónica rce(s) Supporting Document(s) HAVM Nonreactive Normal (applies to non-numeric resu lts) [facility] ID Date Data Source [id number] 05/19/2020 04:00:00 AM [facility] Value Range Interpretation Code Description Data Mónica rce(s) Supporting Document(s) Vitamin D,Total (25OH) 30.0-100.0 Below low normal [facility] Reference Range: <10 ng/mL: Deficien t 10-30 ng/mL: Insufficient 30-100 ng/mL: Sufficient >100 ng/mL: Toxicity possible ID Date Data Source [id number] 05/19/2020 04:00:00 AM [facility] Value Range Interpretation Code Description Data Mónica rce(s) Supporting Document(s) Syphilis Serology Nonreactive Normal (applies to non-numer ic results) [facility] ID Date Data Source [id number] 05/19/2020 12:52:00 AM [facility] Name Value Range Interpretation Code Description Data Mónica rce(s) Supporting Document(s) Magnesium 1.80-2.40 Normal (applies to non-numeric resul ts) [facility] ID Date Data Source [id number] 05/19/2020 12:52:00 AM [facility] Value Range Interpretation Code Description Data Mónica rce(s) Supporting Document(s) C-Reactive Protein,Wide Range <3.00 Above high normal [facility] ID Date Data Source [id number] 05/19/2020 12:52:00 AM [facility] Name Value Range Interpretation Code Description Data Mónica rce(s) Supporting Document(s) Sodium 139 mmol/L 137-145 Normal (applies to non-numeric resul ts) [facility] Potassium 3.5-5.1 Normal (applies to non-numeric resul ts) [facility] Chloride 104 mmol/L 98-112 Normal (applies to non-numeric resul ts) [facility] Carbon Dioxide CO2 22.0-33.0 Normal (applies to non-numer ic results) [facility] Anion Gap 4.0-11.0 Normal (applies to non-numeric resul ts) [facility] BUN 13 mg/dL 7-17 Normal (applies to non-numeric resul ts) [facility] Creatinine 0.70-1.20 Below low normal [facility] GFR >60 Normal (applies to non-numeric results) [facility] Result based on MDRD formula. Glucose Level 93 mg/dL 74-99 Normal (applies to non-numeric re sults) [facility] The reference range is only applicable w hen fasting. Calcium-Uncorrected 8.4-10.2 Normal (applies to non-nume kolton results) [facility] Corrected Calcium 8.4-10.2 Normal (applies to non-numeri c results) [facility] Bilirubin,Total 0.2-1.3 Below low normal [facility] Bilirubin,Direct 0.0-0.3 Normal (applies to non-numeric results) [facility] SGOT(AST) 10 U/L 14-36 Below low normal [facility] SGPT(ALT) 12 U/L 9-52 Normal (applies to non-numeric resul ts) [facility] Alkaline Phosphatase 44 U/L 38-126 Normal (applies to non-num vicente results) [facility] can increase Alkaline Phosp le vels up to 2 times the normal adult value. Normal values for children and adolescents are 2 to 3 times the normal adult value. CPK 36 U/L 26-192 Normal (applies to non-numeric resul ts) [facility] Total Protein 6.3-8.2 Normal (applies to non-numeric re sults) [facility] Albumin 3.5-5.0 Below low normal [facility] Thyroid Stimulate Hormone TSH 0.358-3.740 No rmal (applies to non-numeric results) [facility] ID Date Data Source [id number] 05/19/2020 12:49:[address] [facility] Name Value Range Interpretation Code Description Data Mónica rce(s) Supporting Document(s) White Blood Count 4.8-10.8 Normal (applies to non-numeri c results) [facility] Red Blood Count 3.68-5.22 Normal (applies to non-numeric results) [facility] Hemoglobin 11.2-15.7 Normal (applies to non-numeric resul ts) [facility] Hematocrit 34.1-44.9 Normal (applies to non-numeric resul ts) [facility] Mean Corpuscular Volume 81-99 Normal (applies to non- numeric results) [facility] Mean Corpuscular Hemoglobin 27.0-33.0 Normal (appli es to non-numeric results) [facility] Mean Corpuscular HGB Conc 32.0-36.0 Normal (applies to no n-numeric results) [facility] Red Cell Distribution Width 11.5-14.5 Normal (appli es to non-numeric results) [facility] Platelet Count 320 X10 3/uL 130-450 Normal (applies to non-numeric results) [facility] Mean Platelet Volume 9.5-12.7 Normal (applies to non-num vicente results) [facility] Imm Grans% (AUTO) 0 % 0-2 Normal (applies to non-numeri c results) [facility] Neutrophils % (AUTO) 61 % 40-75 Normal (applies to non-num vicente results) [facility] Lymphocytes % (AUTO) 33 % 21-46 Normal (applies to non-num vicente results) [facility] Monocytes % (AUTO) 4 % 5-12 Below low normal [facility] Eosinophils % (AUTO) 1 % 1-5 Normal (applies to non-num vicente results) [facility] Basophils % (AUTO) 0 % 0-1 Normal (applies to non-numer ic results) [facility] Imm Grans# (AUTO) 0.0-0.5 Normal (applies to non-numeri c results) [facility] Neutrophils # (AUTO) 1.5-8.1 Normal (applies to non-num vicente results) [facility] Lymphocytes # (AUTO) 1.0-3.1 Above high normal [facility] Monocytes # (AUTO) 0.2-1.3 Normal (applies to non-numer ic results) [facility] Eosinophils# (AUTO) 0.0-0.5 Normal (applies to non-nume kolton results) [facility] Basophils # (AUTO) 0.0-0.1 Normal (applies to non-numer ic results) [facility] ID Date Data Source [id number] 05/20/2020 10:24:00 AM EST [facility] Collected By: Nurse Practitioner Piter ls: ar Time Collected: 2114 Name Value Range Interpretation Code Description Data Mónica rce(s) Supporting Document(s) Abscess Culture [facility] ID Date Data Source [id number] 05/20/2020 10:24:00 AM EST [facility] Collected By: Nurse Practitioner Piter ls: ar Time Collected: 2114 Name Value Range Interpretation Code Description Data Mónica rce(s) Supporting Document(s) Amoxicillin/Clavulanic Acid 16 Results entered -- not verified [facility] Cefazolin Results entered -- not verified [facility] Cefepime Susceptible. Indicates for microbiol ogy susceptibilities only. [facility] Ceftriaxone Susceptible. Indicates for m icrobiology susceptibilities only. [facility] Ciprofloxacin Susceptible. Ind icates for microbiology susceptibilities only. [facility] Ertapenem Susceptible. Indicates for microbiol ogy susceptibilities only. [facility] Gentamicin Susceptible. Indicates for microbiol ogy susceptibilities only. [facility] Meropenem Susceptible. Indicates for microbiol ogy susceptibilities only. [facility] Levofloxacin Susceptible. Indicates for m icrobiology susceptibilities only. [facility] Trimeth/Sulfamethoxazole Suscept ible. Indicates for microbiology susceptibilities only. [facility] ID Date Data Source [id number] 05/18/2020 01:25:[address] [facility] Name Value Range Interpretation Code Description Data Mónica rce(s) Supporting Document(s) Opiate Screen,Urine Negative Normal (applies to non-nume kolton results) [facility] Amphetamine Screen,Urine Negative Normal (applies to non -numeric results) [facility] Benzodiazepines Scrn,Ur result Negative N ormal (applies to non-numeric results) [facility] Cocaine Screen,Urine Negative Normal (applies to non-num vicente results) [facility] Methadone Screen,Urine Negative Normal (applies to non-n umeric results) [facility] Cannabinoid Screen, Ur Negative Normal (applies to non-n umeric results) [facility] Therapeutic Drug Ranges for Emergency an d Rehabilitation Threshold Levels (ng/mL) Cocaine 300 Opiates 300 Cannabinoids 50 Barbiturates 200 Benzodiazepine 200 Methadone 300 Amphetamines 1000 All positive findings are presumptive and unconfirmed. Confirmation of positive results are performed only at request of provider. Unconfirmed results must not be used for non-medical purposes (i.e. pre-employment and legal purposes) ID Date Data Source [id number] 05/18/2020 12:53:00 AM EST [facility] Name Value Range Interpretation Code Description Data Móncia rce(s) Supporting Document(s) Color,Urine Yellow Normal (applies to non-numeric resu lts) [facility] Clarity,Urine Clear Normal (applies to non-numeric re sults) [facility] Specific [place],Urine 1.001-1.030 Normal (applies to non- numeric results) [facility] PH,Urine 5.0-8.0 Normal (applies to non-numeric resul ts) [facility] Protein,Urine Negative Normal (applies to non-numeric re sults) [facility] Glucose,Urine (UA) Negative Normal (applies to non-numer ic results) [facility] Ketones,Urine Negative Normal (applies to non-numeric re sults) [facility] Blood,Urine Negative Normal (applies to non-numeric resu lts) [facility] Bilirubin,Urine Negative Normal (applies to non-numeric results) [facility] Urobilinogen,Urine Norm 0.2-1 Normal (applies to non-numer ic results) [facility] Leukocyte Esterase,Urine Negative Normal (applies to non -numeric results) [facility] Nitrite,Urine Negative Normal (applies to non-numeric re sults) [facility] ID Date Data Source [id number] 05/18/2020 12:53:00 AM EST [facility] Name Value Range Interpretation Code Description Data Mónica rce(s) Supporting Document(s) Urine HCG Negative [facility] ID Date Data Source [id number] 05/17/2020 04:25:00 PM EST [facility] Name Value Range Interpretation Code Description Data Mónica rce(s) Supporting Document(s) Respiratory specimen severe acute respir atory syndrome coronavirus 2 (SARS-CoV-2) RNA Negative (qualifier value) [facility] This lab was ordered by [facility] kylah and reported by [facility]. ID Date Data Source [id number] 05/17/2020 05:22:00 PM EST [facility] Name Value Range Interpretation Code Description Data Mónica rce(s) Supporting Document(s) SARS-CoV-2 RNA Negative Normal (applies to non-numeric r esults) [facility] Negative results should be treated as [...] Certificate of Accreditation. Factsheets for healthcare providers: https://www.fda.gov/media/698946/download Factsheets for patients: https://www.fda.gov/media/327963/download The ID NOW Instrument is a rapid molecular in vitro diagnostic test utilizing an isothermal nucleic acid amplification technology intended for the qualitative detection of nucleic acid from the SARS-CoV-2 viral RNA. THIS IS A STATE REPORTABLE COMMUNICABLE DISEASE. Manual entry verified by Jacqueline Arrington 05/17/20 1721 ID Date Data Source [id number] 05/12/2020 01:53:00 PM EST [facility] OB ULTRASOUND, LIMITEDThe patient's LMP [...] Code Description Data Mónica rce(s) Supporting Document(s) Procedure Social History No Information Vital Signs ID Date Data Source UNK Name Value Range Interpretation Code Description Data Source(s) Body temperature 98.2 [degF] 98.2 [degF] PHUONG (Peterson Schneider MD) Systolic blood pressure 107 [...] MD) Body height 65 [in_i] 65 [in_i] PHUONG (Peterson Schneider MD) 5'5" Body weight 146.25 [lb_av] 146.25 [lb_av] MEDEN T (Peterson Schneider MD) Body mass index (BMI) [Ratio] 24.3 kg/m2 24.3 k g/m2 PHUONG (Peterson Schneider MD) Body height 65 [in_i] 65 [in_i] MEDENT ([facility]) 5'5" Body weight 145.00 [lb_av] 145.00 [lb_av] MEDEN T ([facility]) Body mass index (BMI) [Ratio] 24.1 kg/m2 24.1 k g/m2 MEDENT ([facility]) Body height 65 [in_i] [...] Peterson Schneider MD) ID Date Data Source [id number] 02/07/2021 06:46:00 PM [facility] Name Value Range Interpretation Code Description Data Source(s) Weight (Calculated Kilograms) 62.14 62.14 [facility] Height (Calculated Centimeters) 162.56 162. 56 [facility] Body Mass Index (BMI) 23.5 23.5 [facility] Weight (Calculated Kilograms) 62.14 62.14 [facility] Height (Calculated Centimeters) 162.56 162. 56 [facility] Body Mass Index (BMI) 23.5 23.5 [facility] ID Date Data Source [id number] 02/02/2021 12:20:00 AM [facility] Name Value Range Interpretation Code Description Data Source(s) Weight (Calculated Kilograms) 62.14 62.14 [facility] Height (Calculated Centimeters) 162.56 162. 56 [facility] Body Mass Index (BMI) 23.5 23.5 [facility] ID Date Data Source [id number] 10/29/2020 07:10:00 AM EDT [facility] Name Value Range Interpretation Code Description Data Source(s) Weight Measurement Method 1 1 [facility] Weight (Calculated Kilograms) 62.14 62.14 [facility] Weight 2608 2608 [facility] Temperature Source 1 1 [facility] Temperature 97.7 97.7 [facility] Respiratory Effort 1 1 [facility] Respiratory Rate 20 20 [facility] Pulse Assessment Method 4 4 [facility] Pulse Rate 81 81 [facility] Height (Calculated Centimeters) 162.56 162. 56 [facility] Height 65 65 [facility] Blood Pressure 116/70 116/70 [facility] Body Mass Index (BMI) 23.5 23.5 [facility] Weight Measurement Method 1 1 [facility] Weight (Calculated Kilograms) 62.14 62.14 [facility] Weight 2608 2608 [facility] Temperature Source 1 1 [facility] Temperature 97.7 97.7 [facility] Respiratory Effort 1 1 [facility] Respiratory Rate 20 20 [facility] Pulse Assessment Method 4 4 [facility] Pulse Rate 81 81 [facility] Height (Calculated Centimeters) 162.56 162. 56 [facility] Height 65 65 [facility] Blood Pressure 116/70 116/70 [facility] Body Mass Index (BMI) 23.5 23.5 [facility] Weight Measurement Method 1 1 [facility] Weight (Calculated Kilograms) 62.14 62.14 [facility] Weight 2608 2608 [facility] Temperature Source 1 1 [facility] Temperature 97.7 97.7 [facility] Respiratory Effort 1 1 [facility] Respiratory Rate 20 20 [facility] Pulse Assessment Method 4 4 [facility] Pulse Rate 81 81 [facility] Height (Calculated Centimeters) 162.56 162. 56 [facility] Height 65 65 [facility] Blood Pressure 116/70 116/70 [facility] Body Mass Index (BMI) 23.5 23.5 [facility] Weight Measurement Method 1 1 [facility] Weight (Calculated Kilograms) 62.14 62.14 [facility] Weight 2608 2608 [facility] Temperature Source 7 7 [facility] Temperature 97.3 97.3 [facility] Respiratory Effort 1 1 [facility] Respiratory Rate 18 18 [facility] Pulse Assessment Method 4 4 [facility] Pulse Rate 66 66 [facility] Height (Calculated Centimeters) 162.56 162. 56 [facility] Height 65 65 [facility] Blood Pressure 113/75 113/75 [facility] Body Mass Index (BMI) 23.5 23.5 [facility] Weight (Calculated Kilograms) 62.14 62.14 [facility] Height (Calculated Centimeters) 162.56 162. 56 [facility] Body Mass Index (BMI) 23.5 23.5 [facility] Weight (Calculated Kilograms) 62.14 62.14 [facility] Height (Calculated Centimeters) 162.56 162. 56 [facility] Body Mass Index (BMI) 23.5 23.5 [facility] ID Date Data Source [id number] 10/05/2020 09:55:00 AM EDT [facility] Name Value Range Interpretation Code Description Data Source(s) Weight (Calculated Kilograms) 62.14 62.14 [facility] Height (Calculated Centimeters) 162.56 162. 56 [facility] Body Mass Index (BMI) 23.5 23.5 [facility] ID Date Data Source [id number] 09/09/2020 11:41:00 PM EDT [facility] Name Value Range Interpretation Code Description Data Source(s) Weight (Calculated Kilograms) 62.14 62.14 [facility] Height (Calculated Centimeters) 162.56 162. 56 [facility] Body Mass Index (BMI) 23.5 23.5 [facility] ID Date Data Source [id number] 08/20/2020 06:30:00 AM EDT [facility] Name Value Range Interpretation Code Description Data Source(s) Weight (Calculated Kilograms) 62.14 62.14 [facility] Height (Calculated Centimeters) 162.56 162. 56 [facility] Body Mass Index (BMI) 23.5 23.5 [facility] ID Date Data Source [id number] 08/05/2020 11:09:00 AM EDT [facility] Name Value Range Interpretation Code Description Data Source(s) Weight (Calculated Kilograms) 62.14 62.14 [facility] Height (Calculated Centimeters) 162.56 162. 56 [facility] Body Mass Index (BMI) 23.5 23.5 [facility] Weight (Calculated Kilograms) 62.14 62.14 [facility] Height (Calculated Centimeters) 162.56 162. 56 [facility] Body Mass Index (BMI) 23.5 23.5 [facility] Weight (Calculated Kilograms) 62.14 62.14 [facility] Height (Calculated Centimeters) 162.56 162. 56 [facility] Body Mass Index (BMI) 23.5 23.5 [facility] Weight (Calculated Kilograms) 62.14 62.14 [facility] Height (Calculated Centimeters) 162.56 162. 56 [facility] Body Mass Index (BMI) 23.5 23.5 [facility] ID Date Data Source [id number] 07/27/2020 03:58:00 PM EDT [facility] Name Value Range Interpretation Code Description Data Source(s) Weight (Calculated Kilograms) 62.14 62.14 [facility] Height (Calculated Centimeters) 162.56 162. 56 [facility] Body Mass Index (BMI) 23.5 23.5 [facility] ID Date Data Source [id number] 07/22/2020 06:18:00 PM T [facility] Name Value Range Interpretation Code Description Data Source(s) Weight (Calculated Kilograms) 62.14 62.14 [facility] Height (Calculated Centimeters) 162.56 162. 56 [facility] Body Mass Index (BMI) 23.5 23.5 [facility] ID Date Data Source [id number] 07/29/2020 11:55:00 AM EDT [facility] Name Value Range Interpretation Code Description Data Source(s) Weight (Calculated Kilograms) 62.14 62.14 [facility] Height (Calculated Centimeters) 162.56 162. 56 [facility] Body Mass Index (BMI) 23.5 23.5 [facility] ID Date Data Source [id number] 07/07/2020 12:38:00 AM EDT [facility] Name Value Range Interpretation Code Description Data Source(s) Weight (Calculated Kilograms) 62.14 62.14 [facility] Height (Calculated Centimeters) 162.56 162. 56 [facility] Body Mass Index (BMI) 23.5 23.5 [facility] ID Date Data Source [id number] 06/29/2020 02:06:00 PM EDT [facility] Hospital Name Value Range Interpretation Code Description Data Source(s) Weight (Calculated Kilograms) 62.14 62.14 [facility] Height (Calculated Centimeters) 162.56 162. 56 [facility] Body Mass Index (BMI) 23.5 23.5 [facility] ID Date Data Source [id number] 06/25/2020 02:41:00 PM T [facility] Hospital Name Value Range Interpretation Code Description Data Source(s) Weight (Calculated Kilograms) 62.14 62.14 [facility] Height (Calculated Centimeters) 162.56 162. 56 [facility] Body Mass Index (BMI) 23.5 23.5 [facility] Weight (Calculated Kilograms) 62.14 62.14 [facility] Height (Calculated Centimeters) 162.56 162. 56 [facility] Body Mass Index (BMI) 23.5 23.5 [facility] Weight (Calculated Kilograms) 62.14 62.14 [facility] Height (Calculated Centimeters) 162.56 162. 56 [facility] Body Mass Index (BMI) 23.5 23.5 [facility] Weight (Calculated Kilograms) 62.14 62.14 [facility] Height (Calculated Centimeters) 162.56 162. 56 [facility] Body Mass Index (BMI) 23.5 23.5 [facility] Hospital ID Date Data Source [id number] 06/12/2020 12:21:00 AM [facility] Hospital Name Value Range Interpretation Code Description Data Source(s) Weight (Calculated Kilograms) 62.14 62.14 [facility] Height (Calculated Centimeters) 162.56 162. 56 [facility] Body Mass Index (BMI) 23.5 23.5 [facility] ID Date Data Source [id number] 06/11/2020 12:08:00 AM [facility] Name Value Range Interpretation Code Description Data Source(s) Weight (Calculated Kilograms) 62.14 62.14 [facility] Height (Calculated Centimeters) 162.56 162. 56 [facility] Body Mass Index (BMI) 23.5 23.5 [facility] ID Date Data Source [id number] 06/05/2020 12:23:00 AM [facility] Hospital Name Value Range Interpretation Code Description Data Source(s) Weight (Calculated Kilograms) 62.14 62.14 [facility] Height (Calculated Centimeters) 162.56 162. 56 [facility] Body Mass Index (BMI) 23.5 23.5 [facility] ID Date Data Source [id number] 05/27/2020 01:25:00 AM [facility] Name Value Range Interpretation Code Description Data Source(s) Weight (Calculated Kilograms) 62.14 62.14 [facility] Height (Calculated Centimeters) 162.56 162. 56 [facility] Body Mass Index (BMI) 23.5 23.5 [facility] ID Date Data Source [id number] 05/20/2020 02:44:00 AM [facility] Hospital Name Value Range Interpretation Code Description Data Source(s) Weight (Calculated Kilograms) 62.14 62.14 [facility] Height (Calculated Centimeters) 162.56 162. 56 [facility] Body Mass Index (BMI) 23.5 23.5 [facility] ID Date Data Source [id number] 07/08/2020 06:13:00 PM [facility] Hospital Name Value Range Interpretation Code Description Data Source(s) Weight Measurement Method 1 1 [facility] Weight (Calculated Kilograms) 62.14 62.14 [facility] Weight 2288 2288 [facility] Temperature Source 7 7 [facility] Temperature 97.5 97.5 [facility] Respiratory Effort 1 1 [facility] Respiratory Rate 16 16 [facility] Pulse Assessment Method 4 4 [facility] Pulse Rate 76 76 [facility] Height (Calculated Centimeters) 162.56 162. 56 [facility] Height 64 64 [facility] Blood Pressure 108/65 108/65 [facility] Body Mass Index (BMI) 23.5 23.5 [facility] Weight Measurement Method 1 1 [facility] Weight (Calculated Kilograms) 62.14 62.14 [facility] Weight 2288 2288 [facility] Temperature Source 7 7 [facility] Temperature 97.5 97.5 [facility] Respiratory Effort 1 1 [facility] Respiratory Rate 16 16 [facility] Pulse Assessment Method 4 4 [facility] Pulse Rate 76 76 [facility] Height (Calculated Centimeters) 162.56 162. 56 [facility] Height 64 64 [facility] Blood Pressure 108/65 108/65 [facility] Body Mass Index (BMI) 23.5 23.5 [facility] Weight Measurement Method 1 1 [facility] Weight (Calculated Kilograms) 62.14 62.14 [facility] Weight 2288 2288 [facility] Temperature Source 7 7 [facility] Temperature 97.5 97.5 [facility] Respiratory Effort 1 1 [facility] Respiratory Rate 16 16 [facility] Pulse Assessment Method 4 4 [facility] Pulse Rate 76 76 [facility] Height (Calculated Centimeters) 162.56 162. 56 [facility] Height 64 64 [facility] Blood Pressure 108/65 108/65 [facility] Body Mass Index (BMI) 23.5 23.5 [facility] Weight Measurement Method 1 1 [facility] Weight (Calculated Kilograms) 62.14 62.14 [facility] Weight 2192 2192 [facility] Temperature Source 7 7 [facility] Temperature 97.3 97.3 [facility] Respiratory Effort 1 1 [facility] Respiratory Rate 16 16 [facility] Pulse Assessment Method 4 4 C [facility] Pulse Rate 65 65 [facility] Height (Calculated Centimeters) 162.56 162. 56 [facility] Height 64 64 [facility] Blood Pressure 97/60 97/60 [facility] Body Mass Index (BMI) 23.5 23.5 [facility] Weight Measurement Method 1 1 [facility] Weight (Calculated Kilograms) 62.14 62.14 [facility] Weight 2192 2192 [facility] Temperature Source 7 7 [facility] Temperature 96.9 96.9 [facility] Respiratory Effort 1 1 [facility] Respiratory Rate 16 16 [facility] Pulse Assessment Method 4 4 [facility] Pulse Rate 80 80 [facility] Height (Calculated Centimeters) 162.56 162. 56 [facility] Height 64 64 [facility] Blood Pressure 111/65 111/65 [facility] Body Mass Index (BMI) 23.5 23.5 [facility]
[2021-02-10] MEDS ORDERED: LATANOPROST 0.005% OPHTH SOLN 2.5 ML OD STA (17:53)
[2021-02-10] MEDS ORDERED: BRIMONIDINE 0.15% OPHTH SOLN 5 ML OD STA (17:53)
[2021-02-10] MEDS ORDERED: TIMOLOL MALEATE 0.5% OPHTH SOLN 5 ML OD STA (17:53)
[2021-02-10] MEDS ORDERED: DORZOLAMIDE 2% OPHTH SOLN 10 ML BTL OD STA (17:57)
[2021-02-10 18:32] LABS: BASO % 0.7 % (0.0-1.0); EOS # 0.2 10^3/uL (0.0-0.5); EOS % 3.9 % (0.0-3.0); HEMATOCRIT 39.8 % (36.0-47.0); HEMOGLOBIN 12.7 g/dl (12.0-15.5); LYMPH # 2.6 10^3/uL (1.5-5.0); MEAN CORPUSCULAR HEMOGLOBIN 28.3 pg (27.0-33.0); MEAN CORPUSCULAR HGB CONC 31.9 g/dl (32.0-36.5); MEAN CORPUSCULAR VOLUME 88.8 fl (80.0-96.0); MONO # 0.2 10^3/uL (0.0-0.8); MONO % 4.2 % (2.0-8.0); NEUTROPHILS # 1.4 10^3/uL (1.5-8.5); NEUTROPHILS % 32.2 % (36.0-66.0); PLATELET COUNT, AUTOMATED 276 10^3/uL (150-450); RED BLOOD COUNT 4.48 10^6/uL (4.00-5.40); WHITE BLOOD COUNT 4.3 10^3/uL (4.0-10.0)
[2021-02-10] MEDS ORDERED: KETOROLAC 30 MG/ML 1ML VIAL IV ONE (19:35)
[2021-02-10] MEDS ORDERED: ISOVUE-370 76% 100ML VIAL As Ordered ONE (19:45)
--- NOTE | 2021-02-10 20:30 | REPVR ---
PROCEDURE INFORMATION: Exam: CT Head Without Contrast Exam date and time: 02/10/2021 7:48 PM Age: 30 years old Clinical indication: Pain; Headache; Additional info: Severe headache, pulsating to R eye TECHNIQUE: Imaging protocol: Computed tomography of the head without contrast. Axial and coronal reformatted images were created and reviewed. Radiation optimization: All CT scans at this facility use at least one of these dose optimization techniques: automated exposure control; mA and/or kV adjustment per patient size (includes targeted exams where dose is matched to clinical indication); or iterative reconstruction. COMPARISON: No relevant prior studies available. FINDINGS: Brain: No CT evidence of acute intracranial hemorrhage or acute territorial infarction. No significant mass effect or midline shift. Basal cisterns patent. Cerebral ventricles: Normal in size and configuration. 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 Paranasal sinuses: Unremarkable. No fluid levels. Mastoid air cells: Grossly unremarkable. Bones/joints: No acute osseous abnormality. Soft tissues: Grossly unremarkable. IMPRESSION: 1. No CT evidence of acute intracranial pathology. 2. Additional findings, as above. Electronically signed by: Angel Baxter On 02/10/2021 20:29:39 PM
[2021-02-10] MEDS ORDERED: PROMETHAZINE INJ 25 MG/ML VIAL (J2550) IV ONE (20:35)
--- NOTE | 2021-02-10 20:36 | REPVR ---
PROCEDURE INFORMATION: Exam: CT Orbits With Contrast Exam date and time: 02/10/2021 7:48 PM Age: 30 years old Clinical indication: Other: Pulsating R eye, elevated iop, dilated pupil TECHNIQUE: Imaging protocol: Computed tomography images of the orbits with intravenous contrast. Radiation optimization: All CT scans at this facility use at least one of these dose optimization techniques: automated exposure control; mA and/or kV adjustment per patient size (includes targeted exams where dose is matched to clinical indication); or iterative reconstruction. Contrast material: ISOVUE 370; Contrast volume: 75 ml; Contrast route: INTRAVENOUS (IV); COMPARISON: No relevant prior studies available. FINDINGS: Orbital cavity: Orbits are normal. Globes are unremarkable. Paranasal sinuses: Minimal right greater than left ethmoid mucosal thickening. Bones/joints: No acute fracture. Soft tissues: No significant facial soft tissue swelling. IMPRESSION: 1. No acute pathology. 2. Additional findings, as above. Electronically signed by: Angel Baxter On 02/10/2021 20:35:47 PM
[2021-02-10 21:06] VITALS: BP 123/63
== END 2021-02-10 21:08 | disposition home or self-care (01) ==
LOC: M ED 12:26
DX: H40.9 Unspecified glaucoma (principal); H20.9 Unspecified iridocyclitis; B19.20 Unspecified viral hepatitis C without hepatic coma; Z86.19 Personal history of other infectious and parasitic diseases; J30.89 Other allergic rhinitis; F19.11 Other psychoactive substance abuse, in remission; Z79.899 Other long term (current) drug therapy
CPT/HCPCS: 70450; 70481; 80047; 84702; 85025; 85652; 86140; 96374; 96375; 99284; J1120; J1885; Q9967

== ENCOUNTER 2021-03-23 15:15 | Outpatient (RCR) | payer OTHER ==
[~2021-03-23 15:15] MED LIST: PROZ40CA PO; SERO1TAB3 PO; SUBO12MI
== END 2021-03-25 ==
LOC: M PT 15:15
PROVIDERS: ATTEND Physician Assistant
DX: M54.2 Cervicalgia (principal); M54.31 Sciatica, right side

== ENCOUNTER 2021-04-14 15:15 | Outpatient (RCR) | payer OTHER | END 2021-04-25 | LOC: M PT 15:15 | PROVIDERS: ATTEND Physician Assistant | DX: M54.31 Sciatica, right side (principal); M54.2 Cervicalgia ==

== ENCOUNTER 2021-05-03 09:09 | Emergency (ER) | payer OTHER ==
[~2021-05-03] VITALS: Ht 165.1 cm; Wt 67.9 kg
[2021-05-03] MEDS ORDERED: NS 1,000 ML IV ONE (11:35)
[2021-05-03] MEDS ORDERED: KETOROLAC 30 MG/ML 1ML VIAL IV ONE (11:35)
[2021-05-03 11:42] LABS: BASO % 0.5 % (0.0-1.0); EOS # 0.1 10^3/uL (0.0-0.5); EOS % 1.4 % (0.0-3.0); HEMATOCRIT 39.3 % (36.0-47.0); HEMOGLOBIN 12.6 g/dl (12.0-15.5); LYMPH # 2.2 10^3/uL (1.5-5.0); LYMPH % 36.8 % (24.0-44.0); MEAN CORPUSCULAR HEMOGLOBIN 30.1 pg (27.0-33.0); MEAN CORPUSCULAR HGB CONC 32.1 g/dl (32.0-36.5); MEAN CORPUSCULAR VOLUME 93.8 fl (80.0-96.0); MONO # 0.2 10^3/uL (0.0-0.8); MONO % 2.9 % (2.0-8.0); NEUTROPHILS # 3.4 10^3/uL (1.5-8.5); NEUTROPHILS % 58.1 % (36.0-66.0); PLATELET COUNT, AUTOMATED 336 10^3/uL (150-450); RED BLOOD COUNT 4.19 10^6/uL (4.00-5.40); WHITE BLOOD COUNT 5.9 10^3/uL (4.0-10.0)
[2021-05-03 12:20] LABS: BLOOD UREA NITROGEN 16 MG/DL (7-18); CALCIUM LEVEL 9.4 MG/DL (8.5-10.1); CARBON DIOXIDE LEVEL 28 MEQ/L (21-32); CHLORIDE LEVEL 106 MEQ/L (98-107); CREATININE FOR GFR 0.96 MG/DL (0.55-1.30); GLOMERULAR FILTRATION RATE > 60.0 (>60); GLUCOSE, FASTING 86 MG/DL (70-100); POTASSIUM SERUM 4.1 MEQ/L (3.5-5.1); SODIUM LEVEL 139 MEQ/L (136-145)
[2021-05-03 12:22] LABS: HCG, SERUM QUALITATIVE NEGATIVE (NEGATIVE)
[2021-05-03 12:39] LABS: AMPHETAMINES LEVEL URINE NEGATIVE (NEGATIVE); BARBITURATES URINE NEGATIVE (NEGATIVE); BENZODIAZEPINES URINE NEGATIVE (NEGATIVE); CANNABINOIDS URINE NEGATIVE (NEGATIVE); COCAINE METABOLITE URINE NEGATIVE (NEGATIVE); METHADONE URINE NEGATIVE (NEGATIVE); OPIATES URINE NEGATIVE (NEGATIVE); PHENCYCLIDINE URINE NEGATIVE (NEGATIVE)
[2021-05-03] MEDS ORDERED: LEVO100T5 PO (13:34)
[2021-05-03 13:52] VITALS: BP 109/67
[2021-05-03 21:44] LABS: MAGNESIUM LEVEL 1.9 MG/DL (1.7-2.2)
== END 2021-05-03 13:55 | disposition home or self-care (01) ==
LOC: M ED 09:09
DX: R55 Syncope and collapse (principal); S00.83XA Contusion of other part of head, initial encounter; W19.XXXA Unspecified fall, initial encounter; Y92.9 Unspecified place or not applicable; Y93.9 Activity, unspecified; Y99.9 Unspecified external cause status; E01.0 Iodine-deficiency related diffuse (endemic) goiter; R56.9 Unspecified convulsions; F41.9 Anxiety disorder, unspecified; F32.A Depression, unspecified; F19.10 Other psychoactive substance abuse, uncomplicated; Z79.890 Hormone replacement therapy; Z79.899 Other long term (current) drug therapy
CPT/HCPCS: 70450; 70486; 72125; 80048; 80307; 83735; 84439; 84443; 84703; 85025; 93005; 96361; 96374; 99284; J1885

== ENCOUNTER → 2021-05-16 | Outpatient (CLI) | payer OTHER ==
[~2021-05-16] MED LIST changes: +ISOVUE-300 61% 50ML VIAL As Ordered ONE; +KEPP500T13 PO; +LEVO100T5 PO; +LIDOCAINE 1% MDV 20ML VIAL As Ordered ONE; +PROHANCE 279.3MG/ML 5ML VIAL As Ordered ONE
== END ==
LOC: M RADPRO 06:42
PROVIDERS: ATTEND Orthopaedic Surgery
DX: M25.552 Pain in left hip (principal)
CPT/HCPCS: 27093; 73723; 77002; A9576; Q9967

== ENCOUNTER → 2021-05-17 | Outpatient (CLI) | payer OTHER ==
[~2021-05-17] MED LIST changes: -ISOVUE-300 61% 50ML VIAL As Ordered ONE; -LIDOCAINE 1% MDV 20ML VIAL As Ordered ONE; -PROHANCE 279.3MG/ML 5ML VIAL As Ordered ONE
[2021-05-17 16:19] LABS: FREE THYROXINE INDEX 2.5 % (1.3-4.8); THYROID STIMULATING HORMONE 2.44 uIU/ML (0.358-3.740); THYROXINE (T4) 7.8 UG/DL (4.5-12.0)
== END ==
LOC: M PLALAB 09:58
PROVIDERS: ATTEND Internal Medicine Cardiovascular Disease
DX: F17.293 Nicotine dependence, other tobacco product, with withdrawal (principal)

== ENCOUNTER 2021-05-23 18:23 | Emergency (ER) | payer OTHER ==
[~2021-05-23] VITALS: Ht 165.1 cm; Wt 71.4 kg
[~2021-05-23 18:23] MED LIST changes: -KEPP500T13 PO
[2021-05-23] MEDS ORDERED: ONDANSETRON 4MG/2ML VIAL IV ONE (19:35)
[2021-05-23 20:11] LABS: BASO % 0.7 % (0.0-1.0); EOS # 0.1 10^3/uL (0.0-0.5); EOS % 2.6 % (0.0-3.0); HEMATOCRIT 36.4 % (36.0-47.0); HEMOGLOBIN 12.1 g/dl (12.0-15.5); LYMPH # 2.3 10^3/uL (1.5-5.0); MEAN CORPUSCULAR HGB CONC 33.2 g/dl (32.0-36.5); MEAN CORPUSCULAR VOLUME 93.3 fl (80.0-96.0); MONO # 0.2 10^3/uL (0.0-0.8); NEUTROPHILS # 1.9 10^3/uL (1.5-8.5); NEUTROPHILS % 40.7 % (36.0-66.0); PLATELET COUNT, AUTOMATED 269 10^3/uL (150-450); WHITE BLOOD COUNT 4.6 10^3/uL (4.0-10.0)
[2021-05-23 20:41] LABS: CK-MB VALUE MASS 8.2 NG/ML (<3.6); MB/CK RELATIVE INDEX 1.93 (< OR =4)
[2021-05-23 20:47] LABS: BLOOD UREA NITROGEN 18 MG/DL (7-18); CALCIUM LEVEL 8.7 MG/DL (8.5-10.1); CARBON DIOXIDE LEVEL 30 MEQ/L (21-32); CHLORIDE LEVEL 107 MEQ/L (98-107); CREATININE FOR GFR 1.06 MG/DL (0.55-1.30); GLOMERULAR FILTRATION RATE > 60.0 (>60); GLUCOSE, FASTING 77 MG/DL (70-100); SODIUM LEVEL 142 MEQ/L (136-145); THYROID STIMULATING HORMONE 0.848 uIU/ML (0.358-3.740)
[2021-05-23 20:50] LABS: HCG, SERUM QUALITATIVE NEGATIVE (NEGATIVE)
[2021-05-23] MEDS ORDERED: ISOVUE-370 76% 100ML VIAL As Ordered ONE (21:03)
[2021-05-23] MEDS ORDERED: KEPP500T13 PO (22:48)
[2021-05-23] MEDS ORDERED: levETIRAcetam INJection 1,000 MG in D5W 100 ML IV ONE (22:50)
[2021-05-23 23:53] VITALS: BP 114/61
== END 2021-05-24 00:19 | disposition home or self-care (01) ==
LOC: M ED 18:23
DX: R56.9 Unspecified convulsions (principal); M94.0 Chondrocostal junction syndrome [Tietze]; E03.9 Hypothyroidism, unspecified; D86.9 Sarcoidosis, unspecified; F19.11 Other psychoactive substance abuse, in remission; F32.A Depression, unspecified; Z79.890 Hormone replacement therapy; Z79.899 Other long term (current) drug therapy
CPT/HCPCS: 36415; 70450; 71260; 80048; 82550; 82553; 84443; 84703; 85025; 93005; 93041; 94760; 96365; 96375; 99285; J1953; J2405; Q9967

== ENCOUNTER → 2021-06-08 | Outpatient (CLI) | payer OTHER ==
[~2021-06-08] MED LIST changes: +KEPP500T13 PO
[2021-06-08 14:19] LABS: FREE THYROXINE INDEX 3.2 % (1.3-4.8); THYROID STIMULATING HORMONE 0.103 uIU/ML (0.358-3.740); THYROXINE (T4) 8.3 UG/DL (4.5-12.0)
== END ==
LOC: M PLALAB 10:42
PROVIDERS: ATTEND Physician Assistant
DX: E03.9 Hypothyroidism, unspecified (principal)